=== PATIENT | female | born 1970 | race Caucasian/White ===

== ENCOUNTER 2018-04-17 11:04 | Inpatient (IN) ==
[2018-04-17] MEDS ORDERED: ONDANSETRON 4 MG/2 ML VIAL IV ONE ×3 (11:26→15:51)
[2018-04-17] MEDS ORDERED: 0.9 % SODIUM CHLORIDE 500 ML IV ONE (11:26)
[2018-04-17] MEDS ORDERED: LORazepam 2 MG/ML VIAL IV ONE (11:26)
[2018-04-17] MEDS ORDERED: HYDROmorphone 2 MG/ML VIAL IV ONE ×2 (11:26→14:41)
[2018-04-17 11:53] LABS: Basophils # (Auto) 0.1 K/mcL (0.0-0.3); Basophils % (Auto) 0.9 % (0.0-2.0); Eosinophils # (Auto) 0.2 K/mcL (0.0-0.7); Eosinophils % (Auto) 2.2 % (0.0-7.0); Granulocytes % (Auto) 79.4 % (38.0-78.0); Lymphocytes # (Auto) 1.1 K/mcL (1.5-4.8); Lymphocytes % (Auto) 11.7 % (15.5-49.0); Mean Cell Volume 91.4 fL (80.0-100.0); Mean Corpuscular HGB Conc 33.4 g/dL (31.0-36.0); Mean Corpuscular Hemoglobin 30.6 pg (26.0-34.0); Monocytes # (Auto) 0.5 K/mcL (0.1-0.9); Monocytes % (Auto) 5.8 % (1.0-12.0); Platelet Count 279 K/mcL (140-440); RBC 3.54 M/mcL (4.00-5.20); Red Cell Distribution Width 14.1 % (11.5-14.5)
[2018-04-17 12:23] LABS: Lipase 630 U/L (7-60)
--- NOTE | 2018-04-17 12:26 | Cat Scan Report ---
CLINICAL INFORMATION: Renal failure. Patient is on dialysis. Severe abdominal pain. COMPARISON: Previous CT scan dated 10/13/2015 TECHNIQUE: Axial images were obtained through the abdomen and pelvis. Sagittally and coronally reformatted images. 80 mL contrast material injected intravenously. Oral contrast material was not given FINDINGS: 66 lung bases are negative. No parenchymal infiltrate or mass. No pleural fluid. No pericardial fluid. There is cardiomegaly. There is coronary artery calcification. Negative liver. No focal intrahepatic abnormality. The liver contour is smooth. Gallbladder is present. No calcified gallstones. No dilated bile ducts. Negative spleen. No splenomegaly. Negative pancreas. No pancreatic mass. No peripancreatic abnormality. Negative adrenal glands. Kidneys are atrophic but functioning. There is right hydronephrosis which is new since previous examination. Right ureter is dilated. There is no right ureteral stone. No bladder calculus. Clinical correlation for possible recent passage of a stone is recommended. Left renal collecting system is mildly prominent. No obstructing or nonobstructing calculi. No solid renal mass. There is an exophytic right lower pole cyst which measures 7.5 cm maximally there is a 10 mm right lower pole cyst. No solid renal mass There is a large left para midline abdominal wall hernia. Hernia defect measures approximately 10 cm in mediolateral dimension and 13 cm in craniocaudal dimension. There is small bowel herniated through this defect and into the subcutaneous tissues. No mechanical small bowel obstruction. No fluid. No bowel wall thickening. There is a second 5 cm supraumbilical hernia which measures 4.7 cm. This contains mesenteric fat but no bowel. Colon is negative. There is diverticulosis but no evidence for diverticulitis. No detectable colonic mass. No diverticulitis. No appendicitis. No mechanical small bowel obstruction No retroperitoneal or mesenteric lymphadenopathy. No lumbar compression fracture. Sacrum and pelvis are negative. Uterus is present and anteflexed. There is a probable 2 cm left ovarian cyst. There is atherosclerotic calcification. No abdominal aortic aneurysm. IMPRESSION: 1. Anterior abdominal wall hernias. Large anterior abdominal wall hernia containing small bowel but without mechanical small bowel obstruction 2. Right hydronephrosis and hydroureter. No ureteral stone identified. Clinical correlation for symptoms of possible recent passage recommended 3. Diverticulosis. No evidence for diverticulitis The exam was performed using radiation dose optimization techniques including, but not limited to, automated exposure control, adjustment of the mA and/or kV according to patient size and use of iterative reconstruction technique. Interpreted and Authenticated by: Marc Penny 04/17/18
[2018-04-17 12:28] LABS: ALT/SGPT 12 U/l (0-40); Albumin 4.1 gm/dL (3.2-5.2); Albumin/Globulin Ratio 1.2 (1.0-2.3); Alkaline Phosphatase 79 U/L (39-117); Blood Urea Nitrogen 58 mg/dl (6-20)
--- NOTE | 2018-04-17 12:48 | Emergency Department Note ---
Nausea/Vomiting/Diarrhea HPI - General Chief complaint: Nausea/Vomiting/Diarrhea Stated complaint: nausea/vomiting, diabetic, dialysis Time Seen by Provider: 04/17/18 11:11 Source: patient Mode of arrival: wheelchair Limitations: no limitations - History of Present Illness HPI Narrative: 47-year-old female dialysis patient who could not go to dialysis this morning secondary to nausea vomiting diarrhea. She is having severe belly pain that is where she is ever had. She has a history of previous bezoar that she had to have surgery for and since then has had significant abdominal ventral wall hernia. Denies fever. She is waiting for a kidney transplant. Patient says she does not make much urine at all - Related Data Home Medications Medication Instructions Recorded Confirmed Aspirin [Jesus Alberto Chewable Aspirin] 81 mg PO DAILY 05/10/15 09/01/16 Atorvastatin [Lipitor] 40 mg PO HS 05/10/15 09/01/16 Benazepril [Lotensin] 40 mg PO DAILY 05/10/15 09/01/16 Carvedilol [Coreg] 25 mg PO BID 05/10/15 09/01/16 Torsemide [Demadex] 20 mg PO DAILY 05/10/15 09/01/16 amLODIPine [Norvasc] 10 mg PO DAILY 05/10/15 09/01/16 calcium acetate 667 mg capsule See Label Instructions .ROUTE 07/27/17 .COMPLEX cap cinacalcet 30 mg tablet 30 mg PO QDAY 07/27/17 clopidogrel 75 mg tablet 75 mg PO QDAY 07/27/17 hydralazine 100 mg tablet 100 mg PO TID tab 07/27/17 insulin glargine (U-100) 100 60 unit SUB-Q QDAY ml 07/27/17 unit/mL subcutaneous solution losartan 50 mg tablet 50 mg PO QDAY 07/27/17 omeprazole 20 mg capsule,delayed 20 mg PO QDAY cap 07/27/17 release sertraline 50 mg tablet 50 mg PO QDAY 07/27/17 Previous Rx's Medication Instructions Recorded Ondansetron [Zofran Odt] 4 mg PO Q4-6H PRN #14 tablet 04/25/16 ondansetron 4 mg disintegrating 4 mg PO Q6H PRN #20 tab 11/21/17 tablet sucroferric oxyhydroxide 500 mg 1,000 mg PO TID #180 tab 12/05/17 chewable tablet Allergies Allergy/AdvReac Type Severity Reaction Status Date / Time codeine AdvReac Intermediate Vomiting Verified 04/17/18 11:07 diazepam [From Valium] AdvReac Other Verified 04/17/18 11:07 Review of Systems All systems ED: reviewed and negative except as stated. Past Medical History - Past Medical History Attestation: Yes: The following information was validated with the patient. [facility] Narrative: Medical History (Last Updated 04/17/18 @ 13:09 by Antonio Lam MD) Acute whiplash injury (Acute) Bronchitis (Acute) Hypertensive urgency (Acute) Nausea & vomiting (Acute) Anemia (Acute) Hypomagnesemia (Acute) Leukocytosis (Acute) Hypothyroidism (Chronic) Anemia in chronic kidney disease (CKD) (Acute) Vomiting (Chronic) Chest pain (Acute) Atypical chest pain (Acute) Metabolic acidosis (Chronic) Obesity (Chronic) Secondary hyperparathyroidism of renal origin (Chronic) Proteinuria (Chronic) Vitamin D deficiency (Acute) Retinopathy, diabetic, background (Acute) Rash (Acute) Insomnia (Acute) Hypertension, essential, benign (Acute) Hyperlipidemia (Acute) Edema leg (Acute) 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) Diabetes mellitus type II, uncontrolled (Acute) CHF (congestive heart failure) (Acute) Chest pain (Acute) Past Surgical History Hx of abdominal surgery (Acute) H/O angioplasty (Acute) Family History sister Chronic kidney disease, stage V Acute myocardial infarction Source: old records reviewed Medical history: Reports: coronary artery disease, DM, GERD, hyperlipidemia, hypertension, renal disease, thyroid disease, other Psychiatric history: Reports: depression Surgical history ED: Reports: other (dialysis fistula / catheter and 2 times abdominal surgeries) - Social History smoking status: Former smoker Physical Exam He is curled up in a position secondary to pain moaning. Tearful. Normocephalic atraumatic. Conjunctive are clear sclerae nonicteric. No nasal discharge or congestion. Oropharynx pink and moist. Neck is supple without lymphadenopathy thyromegaly. Heart is regular rate and rhythm no murmur appreciated. Lungs are clear to auscultation bilaterally without wheezes rales rhonchi or respiratory distress. Abdomen is tender especially over her hernia. Some guarding. No pedal edema. +2 radial pulse. Alert oriented After getting Dilaudid and Zofran. Patient was feeling better and sleeping Limitations: no limitations Course Vital Signs Temperature 97.7 F 04/17/18 11:04 Pulse Rate 86 04/17/18 11:04 Respiratory Rate 26 H 04/17/18 11:04 Blood Pressure 200/87 04/17/18 11:04 Pulse Oximetry (%) 100 04/17/18 11:04 Temperature 97.7 F 04/17/18 11:04 Pulse Rate 39 L 04/17/18 14:46 Respiratory Rate 15 04/17/18 11:51 Blood Pressure 200/98 04/17/18 14:46 Pulse Oximetry (%) 85 L 04/17/18 14:46 Nausea/Vomiting/Diarrhea - Lab Data Lab results reviewed: Yes I reviewed the patient's lab results. Result diagrams: 04/17/18 11:16 04/17/18 11:16 Lab Results 04/17/18 04/17/18 04/17/18 Range/Units 11:16 11:16 11:42 WBC 9.3 (4.5-11.0) K/mcL RBC 3.54 L (4.00-5.20) M/mcL Hgb 10.8 L (12.0-15.0) g/dL Hct 32.4 L (36.0-48.0) % MCV 91.4 (80.0-100.0) fL MCH 30.6 (26.0-34.0) pg MCHC 33.4 (31.0-36.0) g/dL RDW 14.1 (11.5-14.5) % Plt Count 279 (140-440) K/mcL MPV 8.6 (7.4-10.4) fL Gran % 79.4 H (38.0-78.0) % Lymph % (Auto) 11.7 L (15.5-49.0) % Gray % (Auto) 5.8 (1.0-12.0) % Eos % (Auto) 2.2 (0.0-7.0) % Baso % (Auto) 0.9 (0.0-2.0) % Gran # 7.3 (1.8-8.0) K/mcL Lymph # (Auto) 1.1 L (1.5-4.8) K/mcL Gray # (Auto) 0.5 (0.1-0.9) K/mcL Eos # (Auto) 0.2 (0.0-0.7) K/mcL Baso # (Auto) 0.1 (0.0-0.3) K/mcL Sodium 138 (133-145) mmol/L Potassium 4.8 (3.3-5.1) mmol/L Chloride 96 (96-108) mmol/L Carbon Dioxide 24 (22-30) mmol/L Anion Gap 18.0 H (8-16) BUN 58 H (6-20) mg/dl Creatinine 7.1 H* (0.6-1.1) mg/dl GFR Calculation 6 Glucose 194 H (70-105) mg/dL Calcium 9.7 (8.6-10.4) mg/dl Total Bilirubin 0.4 (0.0-1.0) mg/dL AST 16 (0-37) U/l ALT 12 (0-40) U/l Alkaline Phosphatase 79 (39-117) U/L Total Protein 7.5 (5.9-8.4) gm/dL Albumin 4.1 (3.2-5.2) gm/dL Globulin 3.4 (2.2-3.7) gm/dL Albumin/Globulin Ratio 1.2 (1.0-2.3) Triglycerides (<150) mg/dl Cholesterol (<200) mg/dl LDL Cholesterol, Calc (SEE CHART) mg/dl Non-HDL Cholesterol (LDL TARGET+30) HDL Cholesterol (>40) mg/dl Lipase 630 H (7-60) U/L 04/17/18 Range/Units 11:42 WBC (4.5-11.0) K/mcL RBC (4.00-5.20) M/mcL Hgb (12.0-15.0) g/dL Hct (36.0-48.0) % MCV (80.0-100.0) fL MCH (26.0-34.0) pg MCHC (31.0-36.0) g/dL RDW (11.5-14.5) % Plt Count (140-440) K/mcL MPV (7.4-10.4) fL Gran % (38.0-78.0) % Lymph % (Auto) (15.5-49.0) % Gray % (Auto) (1.0-12.0) % Eos % (Auto) (0.0-7.0) % Baso % (Auto) (0.0-2.0) % Gran # (1.8-8.0) K/mcL Lymph # (Auto) (1.5-4.8) K/mcL Gray # (Auto) (0.1-0.9) K/mcL Eos # (Auto) (0.0-0.7) K/mcL Baso # (Auto) (0.0-0.3) K/mcL Sodium (133-145) mmol/L Potassium (3.3-5.1) mmol/L Chloride (96-108) mmol/L Carbon Dioxide (22-30) mmol/L Anion Gap (8-16) BUN (6-20) mg/dl Creatinine (0.6-1.1) mg/dl GFR Calculation Glucose (70-105) mg/dL Calcium (8.6-10.4) mg/dl Total Bilirubin (0.0-1.0) mg/dL AST (0-37) U/l ALT (0-40) U/l Alkaline Phosphatase (39-117) U/L Total Protein (5.9-8.4) gm/dL Albumin (3.2-5.2) gm/dL Globulin (2.2-3.7) gm/dL Albumin/Globulin Ratio (1.0-2.3) Triglycerides 159 H (<150) mg/dl Cholesterol 199 (<200) mg/dl LDL Cholesterol, Calc 121 H (SEE CHART) mg/dl Non-HDL Cholesterol 152 H (LDL TARGET+30) HDL Cholesterol 47 (>40) mg/dl Lipase (7-60) U/L - Radiology Data Radiology results reviewed: Yes I reviewed the patient's radiology results. CT scan of the abdomen and pelvis with contrast was done which shows stable ventral hernia without evidence of obstruction. Possible right-sided kidney stone passage with mild hydronephrosis and dilatation of the ureter. However no current kidney stone seen. Ultrasound gallbladder is ordered secondary to the possibility of gallstone pancreatitis. Ultrasound is negative Disposition Pt seen by CASUALTY CLAIMS SUPERVISOR/PA only: No Clinical Impression: Dialysis patient Abdominal pain Qualifiers: Abdominal location: generalized Qualified Code(s): R10.84 - Generalized abdominal pain Pancreatitis Qualifiers: Chronicity: acute Pancreatitis type: unspecified pancreatitis type Acute pancreatitis complication: no infection or necrosis Qualified Code(s): K85.90 - Acute pancreatitis without necrosis or infection, unspecified Summary: After laboratory and CT scan I discussed case with Dr. Lam, interlocking and signal mechanic on- call for Dr. De Guzman, he recommended she get her dialysis today and if necessary inpatient dialysis versus outpatient. He reviewed CT scan and laboratory and suspects acute pancreatitis I did briefly discussed the case with Dr. Chen, hospitalist, who recommended gallbladder ultrasound to further sort out what is going on. Ultrasound was negative. Dr. Chen then accepted the patient for further evaluation and care. She will need to get dialysis today She received 500 mL of fluid to rehydrate after vomiting. She continued to require pain medicine and antiemetic Disposition: Xfer As Inpt ([facility]) Condition: Fair Referrals: Padmini Naik ARNP [Primary Care Provider] - Dee De Guzman MD [Physician] -
[2018-04-17 13:22] LABS: HDL Cholesterol 47 mg/dl (>40); LDL Cholesterol,Calculated 121 mg/dl (SEE CHART)
--- NOTE | 2018-04-17 14:16 | Ultrasound Report ---
CLINICAL INFORMATION: Abdominal pain. Symptoms suggesting pancreatitis TECHNIQUE: Grayscale and color flow Doppler spectral imaging COMPARISON: CT scan dated 04/17/2018 FINDINGS: Negative gallbladder. No cholelithiasis. No gallbladder wall thickening. No pericholecystic fluid. No dilated bile ducts. Common bile duct measures 5 mm maximally. No intrahepatic bile duct dilatation. Liver measures 14 cm. No focal intrahepatic abnormality. Liver contour is smooth. No evidence for cirrhosis. No ascites. Normal hepatopedal portal venous flow. Visualized portions of the pancreas are negative. No pseudocyst. No peripancreatic fluid. IMPRESSION: Negative limited abdominal ultrasound. Interpreted and Authenticated by: Marc Penny 04/17/18
--- NOTE | 2018-04-17 14:33 | Nephrology Consult Note ---
History of Present Illness - Reason for Consult Patient information: Note initiated : 04/17/18 at 2:31 pm Carlene Maddox is a 47-year-old female with end-stage renal disease on chronic hemodialysis (through right arm AV fistula, at [facility], on [facility], followed by Dr. De Guzman), secondary hyperparathyroidism of renal origin, chronic anemia due to kidney disease, coronary artery disease, diabetes mellitus type 2, hypertension , admitted on 04/17/18 for acute pancreatitis. Consult date: 04/17/18 end stage renal disease Requesting physician: Sameer Naik - Chief Complaint Nausea, vomiting, abdominal pain and diarrhea - History of Present Illness Carlene Maddox is a 47-year-old female with end-stage renal disease on chronic hemodialysis (through right arm AV fistula, at [facility], on [facility], followed by Dr. De Guzman), secondary hyperparathyroidism of renal origin, chronic anemia due to kidney disease, coronary artery disease, diabetes mellitus type 2, hypertension , admitted on 04/17/18 for acute pancreatitis. Review of Systems Constitutional: anorexia, weakness Nose, mouth and throat: no nasal congestion, no sore throat Cardiovascular: no chest pain, no palpatations Respiratory: no cough, no dyspnea Gastrointestinal: abdominal pain, diarrhea, nausea, vomiting Genitourinary: no dysuria, no hematuria Musculoskeletal: no back pain, no neck pain Integumentary: no rash, no wounds Neurological: no confusion, no focal weakness Psychiatric: no anxiety, no panic attacks Endocrine: no cold intolerance, no heat intolerance Hematologic/Lymphatic: no easy bleeding, no easy bruising Allergic/Immunologic: no tongue swelling, no uticaria Past History Past medical history: Medical History (Last Updated 04/17/18 @ 13:09 by Antonio Lam MD) Acute whiplash injury (Acute) Bronchitis (Acute) Hypertensive urgency (Acute) Nausea & vomiting (Acute) Anemia (Acute) Hypomagnesemia (Acute) Leukocytosis (Acute) Hypothyroidism (Chronic) Anemia in chronic kidney disease (CKD) (Acute) Vomiting (Chronic) Chest pain (Acute) Atypical chest pain (Acute) Metabolic acidosis (Chronic) Obesity (Chronic) Secondary hyperparathyroidism of renal origin (Chronic) Proteinuria (Chronic) Vitamin D deficiency (Acute) Retinopathy, diabetic, background (Acute) Rash (Acute) Insomnia (Acute) Hypertension, essential, benign (Acute) Hyperlipidemia (Acute) Edema leg (Acute) 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) Diabetes mellitus type II, uncontrolled (Acute) CHF (congestive heart failure) (Acute) Chest pain (Acute) Past surgical history: Past Surgical History Hx of abdominal surgery (Acute) H/O angioplasty (Acute) Past family history: Family History sister Chronic kidney disease, stage V Acute myocardial infarction Past social history: Social History No Social History Section defined Medications and Allergies Home Medications Medication Instructions Recorded Confirmed Type Aspirin [Jesus Alberto Chewable Aspirin] 81 mg PO DAILY 05/10/15 09/01/16 History Atorvastatin [Lipitor] 40 mg PO HS 05/10/15 09/01/16 History Benazepril [Lotensin] 40 mg PO DAILY 05/10/15 09/01/16 History Carvedilol [Coreg] 25 mg PO BID 05/10/15 09/01/16 History Torsemide [Demadex] 20 mg PO DAILY 05/10/15 09/01/16 History amLODIPine [Norvasc] 10 mg PO DAILY 05/10/15 09/01/16 History Ondansetron [Zofran Odt] 4 mg PO Q4-6H PRN #14 tablet 04/25/16 09/01/16 Rx calcium acetate 667 mg capsule See Label Instructions .ROUTE 07/27/17 History .COMPLEX cap cinacalcet 30 mg tablet 30 mg PO QDAY 07/27/17 History clopidogrel 75 mg tablet 75 mg PO QDAY 07/27/17 History hydralazine 100 mg tablet 100 mg PO TID tab 07/27/17 History insulin glargine (U-100) 100 60 unit SUB-Q QDAY ml 07/27/17 History unit/mL subcutaneous solution losartan 50 mg tablet 50 mg PO QDAY 07/27/17 History omeprazole 20 mg capsule,delayed 20 mg PO QDAY cap 07/27/17 History release sertraline 50 mg tablet 50 mg PO QDAY 07/27/17 History ondansetron 4 mg disintegrating 4 mg PO Q6H PRN #20 tab 11/21/17 Rx tablet sucroferric oxyhydroxide 500 mg 1,000 mg PO TID #180 tab 12/05/17 Rx chewable tablet Allergies Allergy/AdvReac Type Severity Reaction Status Date / Time codeine AdvReac Intermediate Vomiting Verified 04/17/18 11:07 diazepam [From Valium] AdvReac Other Verified 04/17/18 11:07 Exam - Vital Signs Vital signs: Temp Pulse Resp BP Pulse Ox 97.7 F 80 15 193/82 99 04/17/18 11:04 04/17/18 14:17 04/17/18 11:51 04/17/18 14:16 04/17/18 14:17 - General Appearance General appearance: chronically ill, frail EENT: mucous membranes dry Neck: supple Respiratory: clear Cardiology: edema Gastrointestinal: tenderness Integumentary: no rash, warm and dry Neurologic: no focal deficit, alert and oriented x3 Musculoskeletal: no deformities Psychiatric: mood/affect appropriate, cooperative Results - Lab Results 04/17/18 11:16 04/17/18 11:16 Most recent lab results Calcium 9.7 mg/dl (8.6-10.4) 04/17/18 11:16 Assessment and Plan (1) ESRD (end stage renal disease) on dialysis Carlene Maddox is a 47-year-old female with end-stage renal disease on chronic hemodialysis (through right arm AV fistula, at [facility], on [facility], followed by Dr. De Guzman), secondary hyperparathyroidism of renal origin, chronic anemia due to kidney disease, coronary artery disease, diabetes mellitus type 2, hypertension , admitted on 04/17/18 for acute pancreatitis. Plan: Hemodialysis tomorrow with Revaclear 400 dialyzer for 4 hours, QB/QD 400 /800, dialysate (Potassium 3, Bicarbonate 35, Calcium 2.5, Sodium 140), UF target 2000 ml, Heparin 2000 unit bolus, 1000 unit per hour. Status: Chronic Priority: Medium
--- NOTE | 2018-04-17 16:25 | Internal Med History&Physical ---
Medical - H&P: [facility] Patient information: Note initiated : 04/17/18 at 4:20 pm Service Date, if different from initiated Date: [] Patient: Carlene Maddox a 47 y/o F admitted on for N/V, Diabetic, Dialysis. Chief Complaint: [] History of present illness: Ms. Maddox is a 47 year old F who presents to the ER with severe abdominal pain. She states she went to bed feeling fine and she woke up at 730 with severe squeezing type abdominal pain mid up abdomen shooting straight through to the back. She came to ER set of dialysis because of the pain. In the ER she was evaluated including CT abdomen pelvis no acute pathology presentation labs clinically evident for pancreatitis. Patient denies any trauma no new medications denies alcohol use. Patient states the pain came on acutely. Last time she had any pain similar to this is when she had perforation of abdominal viscus perforation. She did have a gallbladder ultrasound in ER which showed no stones as well. And [employer] outpatient ER and was recommended to get her dialysis today. Patient has had diarrhea as well however this common for her she has had over the past week. She did develop some nausea vomiting with the abdominal pain. Vomitus was described as yellow and ascitic. She vomited 4 times. No fever chills headaches no chest pain coughing or shortness of breath. Also found to be hypertensive in the ER. Try to clarify her medications she could not give me much information. I see if 5 different blood pressure medications I cannot imagine she is on all of them will to clarify the medication list. Review of Systems: Positive for nausea vomiting severe abdominal pain, diarrhea chronic. Denies headache/fever/chills/chest pain/cough/dyspnea. Remaining 10 point review of systems reviewed negative. Medical - H&P: [facility] Medical history: Medical History (Last Updated 04/17/18 @ 13:09 by Antonio Lam MD) Obesity (Chronic) Secondary hyperparathyroidism of renal origin (Chronic) Diabetes with retinopathy, diabetic, background (Acute) Hypertension, essential, benign (Acute) Hyperlipidemia (Acute) chronic anemia Depression GERD Patient denied any history of heart failure or CAD past Surgical History Hx of abdominal surgery (Acute) Family History sister Chronic kidney disease, stage V Acute myocardial infarction Patient is adopted and unknown history of mother and father Social History Former smoker quit 20 years ago Denies alcohol use Ambulates with cane Lives at home with family Medical - H&P: Meds Home Medications Medication Instructions Recorded Confirmed Type Aspirin [Jesus Alberto Chewable Aspirin] 81 mg PO DAILY 05/10/15 09/01/16 History Atorvastatin [Lipitor] 40 mg PO HS 05/10/15 09/01/16 History Benazepril [Lotensin] 40 mg PO DAILY 05/10/15 09/01/16 History Carvedilol [Coreg] 25 mg PO BID 05/10/15 09/01/16 History Torsemide [Demadex] 20 mg PO DAILY 05/10/15 09/01/16 History amLODIPine [Norvasc] 10 mg PO DAILY 05/10/15 09/01/16 History Ondansetron [Zofran Odt] 4 mg PO Q4-6H PRN #14 tablet 04/25/16 09/01/16 Rx calcium acetate 667 mg capsule See Label Instructions .ROUTE 07/27/17 History .COMPLEX cap cinacalcet 30 mg tablet 30 mg PO QDAY 07/27/17 History clopidogrel 75 mg tablet 75 mg PO QDAY 07/27/17 History hydralazine 100 mg tablet 100 mg PO TID tab 07/27/17 History insulin glargine (U-100) 100 60 unit SUB-Q QDAY ml 07/27/17 History unit/mL subcutaneous solution losartan 50 mg tablet 50 mg PO QDAY 07/27/17 History omeprazole 20 mg capsule,delayed 20 mg PO QDAY cap 07/27/17 History release sertraline 50 mg tablet 50 mg PO QDAY 07/27/17 History ondansetron 4 mg disintegrating 4 mg PO Q6H PRN #20 tab 11/21/17 Rx tablet sucroferric oxyhydroxide 500 mg 1,000 mg PO TID #180 tab 12/05/17 Rx chewable tablet Allergies Allergy/AdvReac Type Severity Reaction Status Date / Time codeine AdvReac Intermediate Vomiting Verified 04/17/18 11:07 diazepam [From Valium] AdvReac Other Verified 04/17/18 11:07 Medical - H&P: Exam - Constitutional Vitals: Temp Pulse Resp BP Pulse Ox 97.7 F 87 15 212/91 100 04/17/18 11:04 04/17/18 16:01 04/17/18 11:51 04/17/18 16:01 04/17/18 16:01 Exam: General: Alert, Awake, mild acute Distress from pain and nausea HEENT: EOMI, normocephalic atraumatic, pupils equal round react light, dry mucous membranes CV: RRR, No murmurs, Pulm: Clear b/l, no wheezing/rhonchi/rales Abd: soft, tender to palpation epigastrium, decreased bowel sounds x4 x4 Ext: no clubbing/cyanosis/edema Neuro: Alert, no focal deficits, moves all extremities Skin: warm/dry Medical - H&P: Reslt - Labs CBC & Chem 7: 04/17/18 11:16 04/17/18 11:16 Labs: Short CBC 04/17/18 Range/Units 11:16 WBC 9.3 (4.5-11.0) K/mcL Hgb 10.8 L (12.0-15.0) g/dL Hct 32.4 L (36.0-48.0) % Plt Count 279 (140-440) K/mcL BMP 04/17/18 11:16 Sodium 138 Potassium 4.8 Chloride 96 Carbon Dioxide 24 BUN 58 H Creatinine 7.1 H* Glucose 194 H Calcium 9.7 Liver Function 04/17/18 Range/Units 11:16 Total Bilirubin 0.4 (0.0-1.0) mg/dL AST 16 (0-37) U/l ALT 12 (0-40) U/l Alkaline Phosphatase 79 (39-117) U/L Albumin 4.1 (3.2-5.2) gm/dL Medical - H&P: A/P - Narrative A/P Narrative: A: *Acute pancreatitis: Unknown etiology >no alcohol use, no cholelithiasis gallbladder unremarkable, No trauma, Ca/Trigs ok, she is on several medications that are class Ib causes which include omeprazole and possibly losartan if she is actually taking at however it sounds like she has been on these for a long time -GB u/s unremarkable *Hypertensive urgency: *Diabetes with retinopathy (legally blind): *End-stage renal disease(mwf): Follows with Dr. eD Guzman *Anemia, chronic: *Hypertension: Follows with [facility] cardiology for hypertension denies any CHF or CAD *Depression *GERD *Obesity P: -IV fluid hydration will be cautious given ESRD -N.p.o. -Nephrology for hemodialysis -DC Prilosec and losartan for now -Clarify home medications, especially blood pressure medications -Monitor blood pressure closely with as needed as needed to obtain better control -Continue other home medications -SSI -ppx: Heparin
[2018-04-17] MEDS ORDERED: BISACODYL 10 MG SUPP.RECT PR PRN ×2 (16:36→18:30)
[2018-04-17] MEDS ORDERED: PROMETHAZINE 25 MG TABLET PO PRN (16:36)
[2018-04-17] MEDS ORDERED: ACETAMINOPHEN 325 MG TABLET PO PRN ×2 (16:36→18:30)
[2018-04-17] MEDS ORDERED: HYDROmorphone 2 MG/ML VIAL IV PRN (16:36)
[2018-04-17] MEDS ORDERED: ONDANSETRON 4 MG/2 ML VIAL IV PRN (16:36)
[2018-04-17] MEDS ORDERED: PROCHLORPERAZINE 25 MG SUPP.RECT PR PRN ×2 (16:36→18:30)
[2018-04-17] MEDS ORDERED: LABETALOL HCL 20 MG/4 ML SYRINGE IV PRN ×2 (16:41→18:30)
[2018-04-17] MEDS ORDERED: 0.9 % SODIUM CHLORIDE 500 ML IV SCH (16:45)
[2018-04-17] MEDS ORDERED: INSULIN LISPRO 1 UNIT/0.01 ML UNIT SQ SCH (18:00)
[2018-04-17] MEDS: 0.9 % SODIUM CHLORIDE 500 ML IV SCH ×2 (18:55→22:07)
[2018-04-17] MEDS: HYDROmorphone 2 MG/ML VIAL IV PRN (18:56)
[2018-04-17 19:26] LABS: Appearance,Urine CLEAR; Bacteria,Urine FEW /hpf (0); Bilirubin,Urine NEG (NEG); Color,Urine YELLOW; Glucose,Urine (UA) 150 mg/dL (NEG); Leukocyte Esterase,Urine NEG /uL (NEG); Mucus,Urine FEW /hpf (0); Protein,Urine 100 mg/dL (NEG); Specific Gravity,Urine 1.015 (1.000-1.035); Urine Blood NEG mg/dL (<0.03); Urine RBC 1 /hpf (0-1); Urine Squamous Epithelial Cell 7 /hpf (0-4); Urine WBC 1 /hpf (0-4); Urobilinogen,Urine NEG (NEG)
[2018-04-17] MEDS ORDERED: DOCUSATE SODIUM 100 MG CAPSULE PO SCH (21:00)
[2018-04-17] MEDS ORDERED: HEPARIN 5,000 UNIT/ML VIAL SQ SCH (21:00)
[2018-04-17] MEDS: DOCUSATE SODIUM 100 MG CAPSULE PO SCH (21:35)
[2018-04-17] MEDS ORDERED: 0.9 % SODIUM CHLORIDE 10 ML SYRINGE IV SCH (22:00)
[2018-04-17] MEDS: HEPARIN 5,000 UNIT/ML VIAL SQ SCH (22:06)
[2018-04-17] MEDS: 0.9 % SODIUM CHLORIDE 10 ML SYRINGE IV SCH (22:07)
[2018-04-17] MEDS: ONDANSETRON 4 MG/2 ML VIAL IV PRN (23:27)
[2018-04-18] MEDS: INSULIN LISPRO 1 UNIT/0.01 ML UNIT SQ SCH ×4 (00:10→17:23)
[2018-04-18] MEDS: 0.9 % SODIUM CHLORIDE 500 ML IV SCH ×3 (01:18→12:45)
[2018-04-18] MEDS: ONDANSETRON 4 MG/2 ML VIAL IV PRN ×3 (04:22→23:13)
[2018-04-18] MEDS: 0.9 % SODIUM CHLORIDE 10 ML SYRINGE IV SCH ×3 (05:23→20:01)
[2018-04-18 05:48] LABS: Basophils # (Auto) 0 K/mcL (0.0-0.3); Basophils % (Auto) 0.2 % (0.0-2.0); Eosinophils # (Auto) 0.2 K/mcL (0.0-0.7); Eosinophils % (Auto) 2.8 % (0.0-7.0); Granulocytes % (Auto) 72.3 % (38.0-78.0); Lymphocytes # (Auto) 1.4 K/mcL (1.5-4.8); Lymphocytes % (Auto) 19.5 % (15.5-49.0); Mean Cell Volume 92.9 fL (80.0-100.0); Mean Corpuscular HGB Conc 33.2 g/dL (31.0-36.0); Mean Corpuscular Hemoglobin 30.8 pg (26.0-34.0); Monocytes # (Auto) 0.4 K/mcL (0.1-0.9); Monocytes % (Auto) 5.2 % (1.0-12.0); Platelet Count 226 K/mcL (140-440); RBC 3.14 M/mcL (4.00-5.20); Red Cell Distribution Width 14.3 % (11.5-14.5)
--- NOTE | 2018-04-18 05:50 | Nephrology Progress Note ---
Subjective Patient information: Note initiated : 04/18/18 at 5:47 am Carlene Maddox is a 47-year-old female admitted on 04/17/18 for acute pancreatitis. Chief Complaint: Nausea, vomiting, abdominal pain Principal diagnosis: Acute pancreatitis; ESRD on HD Interval history: Missed dialysis on 04/17/18 Pertinent ROS: Nausea Abdominal pain Weakness No shortness of breath Objective - Vital Signs Vital signs: Vital Signs Temp Pulse Pulse Resp BP BP Pulse Ox 04/18/18 04:10 97.9 F 77 16 99/49 100 04/17/18 23:32 97.7 F 76 20 118/44 94 04/17/18 20:00 97.9 F 20 169/89 100 04/17/18 19:08 73 15 194/78 100 04/17/18 18:12 97.7 F 26 H 127/60 100 04/17/18 18:01 73 194/78 100 04/17/18 17:46 75 195/89 100 04/17/18 17:31 75 189/77 100 04/17/18 17:16 74 187/76 100 04/17/18 17:01 73 188/74 100 04/17/18 16:46 79 185/80 100 04/17/18 16:31 79 195/84 100 04/17/18 16:17 99 H 226/102 87 L 04/17/18 16:01 87 212/91 100 04/17/18 15:46 88 216/90 100 04/17/18 15:31 101 H 210/101 100 04/17/18 15:16 79 212/80 100 04/17/18 15:01 76 195/84 100 04/17/18 14:46 39 L 200/98 85 L 04/17/18 14:31 87 193/90 99 04/17/18 14:17 80 99 04/17/18 14:16 91 H 193/82 100 04/17/18 14:03 90 100 04/17/18 14:01 82 194/90 100 04/17/18 13:46 84 190/88 100 04/17/18 13:31 69 163/76 99 04/17/18 13:16 66 161/82 100 04/17/18 12:31 74 150/72 99 04/17/18 12:16 71 149/72 95 04/17/18 12:15 75 92 04/17/18 12:13 83 148/71 74 L 04/17/18 11:51 72 15 79 L 04/17/18 11:50 63 17 184/71 81 L 04/17/18 11:49 68 15 100 04/17/18 11:46 65 17 212/88 100 04/17/18 11:35 67 18 200/79 100 04/17/18 11:15 78 30 H 200/79 100 04/17/18 11:04 97.7 F 86 26 H 200/87 100 Intake and Output 04/17/18 04/17/18 04/18/18 13:59 21:59 05:59 Intake Total 1000 / 1000 740 / 740 Output Total 125 / 125 Balance 875 / 875 740 / 740 Intake: IV 1000 / 1000 500 / 500 Sodium Chloride 0.9% 500 ml @ 500 / 500 150 mls/hr IV .Q3H20M [facility] Rx#: [id number] Sodium Chloride 0.9% 500 ml @ 1000 / 1000 Wide Open IV .Q0M ONE Rx#: [id number] Oral 240 / 240 Output: Void Amount 125 / 125 Other: Urine Appearance Clear Sediment Urine Color Pale Urine Odor Strong # Voids 1 1 Weight 180 lb 12.465 oz 189 lb 8 oz Patient Weight 04/18/18 05:59 Weight 189 lb 8 oz Intake & Output: Intake & Output 04/17/18 04/17/18 04/18/18 13:59 21:59 05:59 Intake Total 1000 / 1000 740 / 740 Output Total 125 / 125 Balance 875 / 875 740 / 740 Weight 180 lb 12.465 oz 189 lb 8 oz Intake: IV 1000 / 1000 500 / 500 Sodium Chloride 0.9% 500 ml @ 500 / 500 150 mls/hr IV .Q3H20M [facility] Rx#: [id number] Sodium Chloride 0.9% 500 ml @ 1000 / 1000 Wide Open IV .Q0M [facility] Rx#: [id number] Oral 240 / 240 Output: Void Amount 125 / 125 Other: Urine Appearance Clear Sediment Urine Color Pale Urine Odor Strong # Voids 1 1 - General Appearance General appearance: chronically ill, frail EENT: mucous membranes moist Respiratory: clear Cardiology: edema Gastrointestinal: tenderness Integumentary: warm and dry Neurologic: no focal deficit, alert and oriented x3 Musculoskeletal: no deformities Psychiatric: mood/affect appropriate, cooperative - Lab 04/18/18 04:00 04/18/18 04:00 Most recent lab results Calcium 9.7 mg/dl (8.6-10.4) 04/17/18 11:16 Assessment and Plan (1) ESRD (end stage renal disease) on dialysis Carlene Maddox is a 47-year-old female with end-stage renal disease on chronic hemodialysis (through right arm AV fistula, at [facility], on MWF, followed by Dr. De Guzman), secondary hyperparathyroidism of renal origin, chronic anemia due to kidney disease, coronary artery disease, diabetes mellitus type 2, hypertension , admitted on 04/17/18 for acute pancreatitis. Plan: Hemodialysis today with Revaclear 400 dialyzer for 4 hours, QB/QD 400/ 800, dialysate (Potassium 3, Bicarbonate 35, Calcium 2.5, Sodium 140), UF target 2000 ml, Heparin 2000 unit bolus, 1000 unit per hour. The patient seen and evaluated during hemodialysis at 10:45. Status: Chronic Priority: Medium
[2018-04-18] MEDS: PROMETHAZINE 25 MG TABLET PO PRN ×2 (06:41→20:00)
[2018-04-18] MEDS: PANTOPRAZOLE 40 MG VIAL IV SCH (06:43)
--- NOTE | 2018-04-18 06:56 | Internal Med Progress Note ---
Medical - PN: Subj Patient information: Note initiated : 04/18/18 at 6:50 am Service Date, if different from initiated Date: [] Patient: Carlene Maddox a 47 y/o F admitted on 04/17/18 for N/V, Diabetic, Dialysis. Chief Complaint: [] Interval history: Ms. Maddox is a 47 year old F who presents to the ER with severe abdominal pain. She states she went to bed feeling fine and she woke up at 730 with severe squeezing type abdominal pain mid up abdomen shooting straight through to the back. She came to ER set of dialysis because of the pain. In the ER she was evaluated including CT abdomen pelvis no acute pathology presentation labs clinically evident for pancreatitis. Patient denies any trauma no new medications denies alcohol use. Patient states the pain came on acutely. Last time she had any pain similar to this is when she had perforation of abdominal viscus perforation. She did have a gallbladder ultrasound in ER which showed no stones as well. And [employer] outpatient ER and was recommended to get her dialysis today. Patient has had diarrhea as well however this common for her she has had over the past week. She did develop some nausea vomiting with the abdominal pain. Vomitus was described as yellow and ascitic. She vomited 4 times. No fever chills headaches no chest pain coughing or shortness of breath. Also found to be hypertensive in the ER. Try to clarify her medications she could not give me much information. I see if 5 different blood pressure medications I cannot imagine she is on all of them will to clarify the medication list. 04/18 States difficulty in sleeping because of noise interruptions and nausea. However, her abdominal pain although still present is improved, and her nausea vomiting is not as severe. She did urinate a little bit over night. Feels more comfortable. Review of Systems: denies headache/fever/chills/chest pain/cough/dyspnea/diarrhea. Otherwise see above. - Constitutional Vitals: Vital Signs Temp Pulse Resp BP Pulse Ox 97.9 F 77 16 99/49 100 04/18/18 04:10 04/18/18 04:10 04/18/18 04:10 04/18/18 04:10 04/18/18 04:10 Period Temp Pulse Resp BP Sys/Shin Pulse Ox Last 24 Hr 97.7 F-97.9 F 39-101 15-30 99-226/44-102 74-100 Intake and Output 04/17/18 04/18/18 04/18/18 21:59 05:59 13:59 Intake Total 1000 / 1000 740 / 740 Output Total 125 / 125 Balance 875 / 875 740 / 740 Weight 85.956 kg Intake & Output: Intake & Output 04/17/18 04/18/18 04/18/18 21:59 05:59 13:59 Intake Total 1000 / 1000 740 / 740 Output Total 125 / 125 Balance 875 / 875 740 / 740 Weight 85.956 kg Intake: IV 1000 / 1000 500 / 500 Sodium Chloride 0.9% 500 ml @ 500 / 500 150 mls/hr IV .Q3H20M [facility] Rx#: [id number] Sodium Chloride 0.9% 500 ml @ 1000 / 1000 Wide Open IV .Q0M ONE Rx#: [id number] Oral 240 / 240 Output: Void Amount 125 / 125 Other: Urine Appearance Clear Sediment Urine Color Pale Urine Odor Strong # Voids 1 1 Exam: General: Alert, Awake, no acute distress HEENT: EOMI, neck supple CV: RRR, 1/6 SM, Pulm: Clear b/l, no wheezing/rhonchi/rales Abd: soft, tender to palpation epigastrium, bowel sounds present x4 Ext: no clubbing/cyanosis, trace b/l LE edema Neuro: Alert, no focal deficits, moves all extremities Skin: warm/dry Medical - PN: Obj Da - Labs CBC & Chem 7: 04/18/18 04:00 04/18/18 04:00 Labs: Abnormal Lab Results 04/18/18 04/17/18 04/17/18 04:00 18:45 11:42 RBC 3.14 L Hgb 9.7 L Hct 29.2 L Gran % Lymph % (Auto) Lymph # (Auto) 1.4 L Anion Gap BUN Creatinine Glucose Triglycerides 159 H LDL Cholesterol, Calc 121 H Non-HDL Cholesterol 152 H Lipase Urine Protein 100 A Urine Glucose (UA) 150 A Ur Squamous Epith Cells 7 H Urine Bacteria Few A 04/17/18 04/17/18 04/17/18 11:42 11:16 11:16 RBC 3.54 L Hgb 10.8 L Hct 32.4 L Gran % 79.4 H Lymph % (Auto) 11.7 L Lymph # (Auto) 1.1 L Anion Gap 18.0 H BUN 58 H Creatinine 7.1 H* Glucose 194 H Triglycerides LDL Cholesterol, Calc Non-HDL Cholesterol Lipase 630 H Urine Protein Urine Glucose (UA) Ur Squamous Epith Cells Urine Bacteria Meds: Medications Acetaminophen (Tylenol) 650 mg PO Q6HP PRN PRN Reason: PAIN/FEVER > 101 Last Admin: 04/17/18 23:48 Dose: 650 mg Amlodipine Besylate (Norvasc) 10 mg PO DAILY [facility] Aspirin (Aspirin) 81 mg PO DAILY [facility] Bisacodyl (Dulcolax) 10 mg WA Q3DP PRN PRN Reason: Constipation Carvedilol (Coreg) 25 mg PO BIDCC [facility] Cinacalcet (Sensipar) 30 mg PO QDAY [facility] Docusate Sodium (Colace) 100 mg PO BID [facility] Last Admin: 04/17/18 21:35 Dose: Not Given Heparin Sodium (Porcine) (Heparin) 5,000 unit SQ Q12 [facility] Last Admin: 04/17/18 22:06 Dose: 5,000 unit Hydralazine HCl (Apresoline) 100 mg PO TID [facility] Hydromorphone HCl (Dilaudid) 1 mg IV Q2HP PRN PRN Reason: PAIN LEVEL > 6 Last Admin: 04/17/18 18:56 Dose: 0.5 mg Sodium Chloride (Sodium Chloride 0.9%) 500 mls @ 150 mls/hr IV .Q3H20M [facility] Last Admin: 04/18/18 04:22 Dose: Not Given Insulin Glargine (Lantus) 20 unit SQ DAILY [facility] Insulin Human Lispro (Humalog) 0 unit SQ Q6 [facility]; Protocol Last Admin: 04/18/18 05:23 Dose: Not Given Labetalol HCl (Labetalol Hcl) 0 mg IV Q2HP PRN PRN Reason: Hypertension Ondansetron HCl (Zofran) 4 mg IV Q4HP PRN PRN Reason: Nausea And Vomiting Last Admin: 04/18/18 04:22 Dose: 4 mg Pantoprazole Sodium (Protonix) 40 mg IV QAMAC [facility] Last Admin: 04/18/18 06:43 Dose: 40 mg Prochlorperazine Maleate (Compazine) 12.5 mg WA Q12HP PRN PRN Reason: Nausea And Vomiting Promethazine HCl (Phenergan) 12.5 mg PO Q6HP PRN PRN Reason: Nausea And Vomiting Last Admin: 04/18/18 06:41 Dose: 12.5 mg Sertraline HCl (Zoloft) 50 mg PO QDAY [facility] Sodium Chloride (Saline Flush) 10 ml IV Q8 [facility] Last Admin: 04/18/18 05:23 Dose: Not Given Torsemide (Demadex) 20 mg PO DAILY [facility] Medical - PN: A/P - Time Spent With Patient Total time spent is greater than 50% in coordination of care (as documented) at patient's floor/unit and/or counseling patient: - Narrative A/P Narrative: A: *Acute pancreatitis: Unknown etiology >no alcohol use, no cholelithiasis gallbladder unremarkable, No trauma, Ca/Trigs ok, she is on several medications that are class Ib causes (omeprazole, losartan if she is actually taking at however it sounds like she has been on these for a long time) -GB u/s unremarkable *Hypertensive urgency: 2/2 pain and underlying HTN -Improved with pain control *Diabetes with retinopathy (legally blind): *End-stage renal disease(mwf): Follows with Dr. De Guzman *Anemia, chronic: *Hypertension: Follows with [facility] cardiology for hypertension denies any CHF or CAD *Depression *GERD *Obesity P: -contclear liquid diet -Nephrology for hemodialysis -DC Prilosec and losartan for now -Clarify home medications, especially blood pressure medications -pain control, antiemetics -Continue other home medications -SSI -ppx: Heparin/home ppi
[2018-04-18 07:06] LABS: ALT/SGPT 10 U/l (0-40); Albumin 3.3 gm/dL (3.2-5.2); Albumin/Globulin Ratio 1.1 (1.0-2.3); Alkaline Phosphatase 73 U/L (39-117); Bilirubin,Direct < 0.2 mg/dL (0.0-0.3); Blood Urea Nitrogen 62 mg/dl (6-20); Gamma Glutamyl Transpeptidase 10 U/L (5-36); Uric Acid 6.4 mg/dL (2.5-8.0)
[2018-04-18] MEDS: HYDROmorphone 2 MG/ML VIAL IV PRN ×4 (07:17→23:13)
[2018-04-18] MEDS ORDERED: PANTOPRAZOLE 40 MG VIAL IV SCH (07:30)
[2018-04-18] MEDS ORDERED: PANTOPRAZOLE 40 MG TABLET PO SCH (07:30)
[2018-04-18] MEDS ORDERED: CARVEDILOL 12.5 MG TABLET PO SCH (08:00)
[2018-04-18 08:46] LABS: Lipase 76 U/L (7-60)
[2018-04-18] MEDS ORDERED: INSULIN GLARGINE, HUMAN 1 UNIT/0.01 ML SQ SCH (09:00)
[2018-04-18] MEDS ORDERED: amLODIPine 10 MG TABLET PO SCH (09:00)
[2018-04-18] MEDS ORDERED: hydrALAZINE 25 MG TABLET PO SCH (09:00)
[2018-04-18] MEDS: TORSEMIDE 10 MG TABLET PO SCH (12:37)
[2018-04-18] MEDS: ASPIRIN 81 MG TAB.CHEW PO SCH (12:37)
[2018-04-18] MEDS: SERTRALINE 50 MG TABLET PO SCH (12:38)
[2018-04-18] MEDS: CINACALCET 30 MG TABLET PO SCH (12:38)
[2018-04-18] MEDS: DOCUSATE SODIUM 100 MG CAPSULE PO SCH ×2 (12:45→20:00)
[2018-04-18] MEDS: INSULIN GLARGINE, HUMAN 1 UNIT/0.01 ML SQ SCH (14:49)
[2018-04-18] MEDS: HEPARIN 5,000 UNIT/ML VIAL SQ SCH ×2 (14:51→20:00)
[2018-04-18] MEDS: CARVEDILOL 12.5 MG TABLET PO SCH (16:52)
[2018-04-18] MEDS: diphenhydrAMINE 50 MG/ML VIAL IV PRN (17:31)
[2018-04-19] MEDS: INSULIN LISPRO 1 UNIT/0.01 ML UNIT SQ SCH ×4 (00:49→17:19)
[2018-04-19] MEDS: 0.9 % SODIUM CHLORIDE 10 ML SYRINGE IV SCH ×6 (05:52→21:10)
[2018-04-19 06:50] LABS: Basophils # (Auto) 0 K/mcL (0.0-0.3); Basophils % (Auto) 0.6 % (0.0-2.0); Eosinophils # (Auto) 0.2 K/mcL (0.0-0.7); Eosinophils % (Auto) 3.5 % (0.0-7.0); Lymphocytes # (Auto) 1.2 K/mcL (1.5-4.8); Lymphocytes % (Auto) 24.7 % (15.5-49.0); Mean Cell Volume 92.7 fL (80.0-100.0); Mean Corpuscular Hemoglobin 30.5 pg (26.0-34.0); Monocytes # (Auto) 0.4 K/mcL (0.1-0.9); Monocytes % (Auto) 7.2 % (1.0-12.0); Platelet Count 203 K/mcL (140-440); RBC 2.96 M/mcL (4.00-5.20); Red Cell Distribution Width 14.4 % (11.5-14.5)
--- NOTE | 2018-04-19 06:59 | Internal Med Progress Note ---
Medical - PN: Subj Patient information: Note initiated : 04/19/18 at 6:55 am Service Date, if different from initiated Date: [] Patient: Carlene Maddox a 47 y/o F admitted on 04/17/18 for N/V, Diabetic, Dialysis. Chief Complaint: [] Interval history: Ms. Maddox is a 47 year old F who presents to the ER with severe abdominal pain. She states she went to bed feeling fine and she woke up at 730 with severe squeezing type abdominal pain mid up abdomen shooting straight through to the back. She came to ER set of dialysis because of the pain. In the ER she was evaluated including CT abdomen pelvis no acute pathology presentation labs clinically evident for pancreatitis. Patient denies any trauma no new medications denies alcohol use. Patient states the pain came on acutely. Last time she had any pain similar to this is when she had perforation of abdominal viscus perforation. She did have a gallbladder ultrasound in ER which showed no stones as well. And [employer] outpatient ER and was recommended to get her dialysis today. Patient has had diarrhea as well however this common for her she has had over the past week. She did develop some nausea vomiting with the abdominal pain. Vomitus was described as yellow and ascitic. She vomited 4 times. No fever chills headaches no chest pain coughing or shortness of breath. Also found to be hypertensive in the ER. Try to clarify her medications she could not give me much information. I see if 5 different blood pressure medications I cannot imagine she is on all of them will to clarify the medication list. 04/18 States difficulty in sleeping because of noise interruptions and nausea. However, her abdominal pain although still present is improved, and her nausea vomiting is not as severe. She did urinate a little bit over night. Feels more comfortable. 04/19 Had nausea and vomiting until about midnight. Then was able to sleep and slept better. No nausea vomiting this morning occasional headache. Abdominal pain present but slowly improving. Tolerated a full liquid diet last night well. Does note that she started a hernia belt recently and did have a lot of abdominal pain after she started it and did not feel well thereafter. Potential cause of pancreatic irritation. Review of Systems: denies headache/fever/chills/chest pain/cough/dyspnea/diarrhea. Otherwise see above. - Constitutional Vitals: Vital Signs Temp Pulse Resp BP Pulse Ox 98.0 F 85 20 144/81 98 04/19/18 04:00 04/19/18 04:00 04/19/18 04:00 04/19/18 04:00 04/19/18 04:00 Period Temp Pulse Resp BP Sys/Shin Pulse Ox Last 24 Hr 97 F-99.0 F 66-86 14-20 133-188/64-95 90-100 Intake and Output 04/18/18 04/19/18 04/19/18 21:59 05:59 13:59 Weight 85.275 kg Intake & Output: Intake & Output 04/18/18 04/19/18 04/19/18 21:59 05:59 13:59 Weight 85.275 kg Other: Meal Dinner Percent of Meal Consumed 100% Feeding Ability Independent # Voids 1 Exam: General: Alert, Awake, no acute distress HEENT: EOMI, neck supple CV: RRR, 1/6 SM, Pulm: Clear b/l, no wheezing/rhonchi/rales Abd: soft, tender to palpation epigastrium but improving, bowel sounds present x4 Ext: no clubbing/cyanosis, trace b/l LE edema Neuro: Alert, no focal deficits, moves all extremities Skin: warm/dry Medical - PN: Obj Da - Labs CBC & Chem 7: 04/19/18 04:05 04/19/18 04:05 Labs: Abnormal Lab Results 04/19/18 04/18/18 04/18/18 04:05 07:29 04:00 RBC 2.96 L Hgb 9.0 L Hct 27.4 L Gran % Lymph % (Auto) Lymph # (Auto) 1.2 L Anion Gap BUN 62 H Creatinine 7.8 H* Glucose 116 H Phosphorus 5.9 H Magnesium 2.7 H Triglycerides 183 H LDL Cholesterol, Calc Non-HDL Cholesterol Lipase 76 H Urine Protein Urine Glucose (UA) Ur Squamous Epith Cells Urine Bacteria 04/18/18 04/17/18 04/17/18 04:00 18:45 11:42 RBC 3.14 L Hgb 9.7 L Hct 29.2 L Gran % Lymph % (Auto) Lymph # (Auto) 1.4 L Anion Gap BUN Creatinine Glucose Phosphorus Magnesium Triglycerides 159 H LDL Cholesterol, Calc 121 H Non-HDL Cholesterol 152 H Lipase Urine Protein 100 A Urine Glucose (UA) 150 A Ur Squamous Epith Cells 7 H Urine Bacteria Few A 04/17/18 04/17/18 04/17/18 11:42 11:16 11:16 RBC 3.54 L Hgb 10.8 L Hct 32.4 L Gran % 79.4 H Lymph % (Auto) 11.7 L Lymph # (Auto) 1.1 L Anion Gap 18.0 H BUN 58 H Creatinine 7.1 H* Glucose 194 H Phosphorus Magnesium Triglycerides LDL Cholesterol, Calc Non-HDL Cholesterol Lipase 630 H Urine Protein Urine Glucose (UA) Ur Squamous Epith Cells Urine Bacteria Meds: Medications Acetaminophen (Tylenol) 650 mg PO Q6HP PRN PRN Reason: PAIN/FEVER > 101 Last Admin: 04/17/18 23:48 Dose: 650 mg Amlodipine Besylate (Norvasc) 5 mg PO DAILY [facility] Aspirin (Aspirin) 81 mg PO DAILY [facility] Last Admin: 04/18/18 12:37 Dose: Not Given Bisacodyl (Dulcolax) 10 mg SC Q3DP PRN PRN Reason: Constipation Carvedilol (Coreg) 12.5 mg PO BIDCC [facility] Last Admin: 04/18/18 16:52 Dose: 12.5 mg Cinacalcet (Sensipar) 30 mg PO QDAY [facility] Last Admin: 04/18/18 12:38 Dose: Not Given Diagnostic Test (Pha) (Accu-Chek) 1 each FS Q6 [facility] Diphenhydramine HCl (Benadryl) 25 mg IV Q6HP PRN PRN Reason: Pruritus and insomnia Last Admin: 04/18/18 17:31 Dose: 25 mg Docusate Sodium (Colace) 100 mg PO BID [facility] Last Admin: 04/18/18 20:00 Dose: Not Given Heparin Sodium (Porcine) (Heparin) 5,000 unit SQ Q12 [facility] Last Admin: 04/18/18 20:00 Dose: 5,000 unit Hydromorphone HCl (Dilaudid) 1 mg IV Q2HP PRN PRN Reason: PAIN LEVEL > 6 Last Admin: 04/18/18 23:13 Dose: 1 mg Insulin Glargine (Lantus) 20 unit SQ DAILY [facility] Last Admin: 04/18/18 14:49 Dose: Not Given Insulin Human Lispro (Humalog) 0 unit SQ Q6 [facility]; Protocol Last Admin: 04/19/18 05:52 Dose: Not Given Labetalol HCl (Labetalol Hcl) 0 mg IV Q2HP PRN PRN Reason: Hypertension Ondansetron HCl (Zofran) 4 mg IV Q4HP PRN PRN Reason: Nausea And Vomiting Last Admin: 04/18/18 23:13 Dose: 4 mg Pantoprazole Sodium (Protonix) 40 mg IV QAMAC [facility] Last Admin: 04/18/18 06:43 Dose: 40 mg Prochlorperazine Maleate (Compazine) 12.5 mg SC Q12HP PRN PRN Reason: Nausea And Vomiting Promethazine HCl (Phenergan) 12.5 mg PO Q6HP PRN PRN Reason: Nausea And Vomiting Last Admin: 04/18/18 20:00 Dose: 12.5 mg Sertraline HCl (Zoloft) 50 mg PO QDAY [facility] Last Admin: 04/18/18 12:38 Dose: Not Given Sodium Chloride (Saline Flush) 10 ml IV Q8 [facility] Last Admin: 04/19/18 05:52 Dose: 10 ml Torsemide (Demadex) 20 mg PO DAILY [facility] Last Admin: 04/18/18 12:37 Dose: Not Given Medical - PN: A/P - Time Spent With Patient Total time spent is greater than 50% in coordination of care (as documented) at patient's floor/unit and/or counseling patient: - Narrative A/P Narrative: A: *Acute pancreatitis: Unknown etiology >no alcohol use, no cholelithiasis gallbladder unremarkable, No trauma, Ca/Trigs ok, she is on several medications that are class Ib causes (omeprazole, losartan if she is actually taking it, however it sounds like she has been on these for a long time) -GB u/s unremarkable -improving *Hypertensive urgency: 2/2 pain and underlying HTN -Improved with pain control and addition of her past medications *Diabetes with retinopathy (legally blind): *ESRD(mwf): Follows with Dr. De Guzman *Anemia, chronic: *Hypertension: Follows with [facility] cardiology for hypertension denies any CHF or CAD, but sounds like she has not been on any BP meds *Depression *GERD *Obesity P: -on full liquid diet -Nephrology for hemodialysis -DC Prilosec and losartan for now (she likely was not on anyway) -pain control, antiemetics -cont coreg/norvasc -ambulate -ppx: Heparin/home ppi
--- NOTE | 2018-04-19 07:09 | Nephrology Progress Note ---
Subjective Patient information: Note initiated : 04/19/18 at 7:07 am Carlene Maddox is a 47-year-old female admitted on 04/17/18 for acute pancreatitis. Chief Complaint: Nausea, vomiting, abdominal pain Principal diagnosis: Acute pancreatitis; ESRD on HD Interval history: Hemodialysis on 04/18/18 Pertinent ROS: Feeling better Weakness No shortness of breath Objective - Vital Signs Vital signs: Vital Signs Temp Pulse Pulse Resp BP BP Pulse Ox 04/19/18 04:00 98.0 F 85 20 144/81 98 04/19/18 00:00 99.0 F 66 16 134/68 95 04/18/18 20:00 16 140/69 99 04/18/18 19:00 18 134/64 90 04/18/18 15:36 98.3 F 82 14 169/81 97 04/18/18 13:57 97 F 85 181/83 04/18/18 13:28 77 150/86 04/18/18 12:59 80 150/86 04/18/18 12:31 72 149/72 04/18/18 11:59 67 145/78 04/18/18 11:57 97.3 F 86 14 165/84 04/18/18 11:29 86 165/84 04/18/18 11:05 80 133/72 04/18/18 10:32 80 149/78 04/18/18 10:06 97.7 F 80 158/78 Intake and Output 04/18/18 04/19/18 04/19/18 21:59 05:59 13:59 Other: Meal Dinner Percent of Meal Consumed 100% Feeding Ability Independent # Voids 1 Weight 188 lb Intake & Output: Intake & Output 04/18/18 04/19/18 04/19/18 21:59 05:59 13:59 Weight 188 lb Other: Meal Dinner Percent of Meal Consumed 100% Feeding Ability Independent # Voids 1 - General Appearance General appearance: chronically ill, frail EENT: mucous membranes moist Respiratory: clear Cardiology: no edema Gastrointestinal: tenderness Integumentary: warm and dry Neurologic: no focal deficit, alert and oriented x3 Musculoskeletal: no deformities Psychiatric: mood/affect appropriate, cooperative - Lab 04/19/18 04:05 04/19/18 04:05 Most recent lab results Calcium 8.8 mg/dl (8.6-10.4) 04/18/18 04:00 Phosphorus 5.9 mg/dL (2.7-4.5) H 04/18/18 04:00 Magnesium 2.7 mg/dL (1.6-2.5) H 04/18/18 04:00 Assessment and Plan (1) ESRD (end stage renal disease) on dialysis Carlene Maddox is a 47-year-old female with end-stage renal disease on chronic hemodialysis (through right arm AV fistula, at [facility], on [facility], followed by Dr. De Guzman), secondary hyperparathyroidism of renal origin, chronic anemia due to kidney disease, coronary artery disease, diabetes mellitus type 2, hypertension , admitted on 04/17/18 for acute pancreatitis. Plan: Next hemodialysis on Tuesday as outpatient. Status: Chronic Priority: Medium
[2018-04-19 07:11] LABS: Lipase 36 U/L (7-60)
[2018-04-19 07:12] LABS: Blood Urea Nitrogen 20 mg/dl (6-20)
[2018-04-19] MEDS: PANTOPRAZOLE 40 MG VIAL IV SCH (07:12)
[2018-04-19] MEDS: ONDANSETRON 4 MG/2 ML VIAL IV PRN ×3 (07:23→21:18)
[2018-04-19] MEDS: CARVEDILOL 12.5 MG TABLET PO SCH ×2 (07:31→17:14)
[2018-04-19] MEDS: HYDROmorphone 2 MG/ML VIAL IV PRN (08:38)
[2018-04-19] MEDS ORDERED: hydrALAZINE 20 MG/ML VIAL IV PRN (08:55)
--- NOTE | 2018-04-19 09:15 | Discharge Summary ---
Medical - DS: Prov Patient information: Note initiated : 04/19/18 at 9:11 am Service Date, if different from initiated Date: [] Patient: Carlene Maddox a 47 y/o F admitted on 04/17/18 for N/V, Diabetic, Dialysis. Chief Complaint: [] Date of admission: 04/17/18 18:12 Discharge date: 04/20/18 Primary care physician: Padmini Naik Consults: 04/17/18 12:48 Consult to Physician [CONS] Stat Comment: Consulting Provider: Antonio Lam Reason For Exam: Physician to Consult 04/17/18 16:11 Consult to Physician [CONS] Stat Comment: Consulting Provider: Robin Chen Reason For Exam: Physician to Consult Medical - DS: Meds - Discharge Medications Prescriptions: amLODIPine [Norvasc] 5 mg PO DAILY #30 tab Carvedilol [Coreg] 25 mg PO BIDCC #60 tab HYDROcodone/ACETAMINOPHEN [[place] 5-325 Tablet] 5 mg PO Q4HP PRN #20 tab PRN Reason: Pain Ondansetron HCl [Zofran ODT] 4 mg PO Q6H PRN #20 tab PRN Reason: nausea and vomiting Active and Home Medications: Home Medications ondansetron 4 mg disintegrating tablet 4 mg PO Q6H PRN #20 tab 11/21/17 [Rx Confirmed 04/18/18 Last Taken Unknown] sucroferric oxyhydroxide 500 mg chewable tablet 1,000 mg PO TID #180 tab [Rx Confirmed 04/17/18 Last Taken Unknown] Medical - DS: Hosp Hospital course: Ms. Maddox is a 47 year old F who presents to the ER with severe abdominal pain. She states she went to bed feeling fine and she woke up at 730 with severe squeezing type abdominal pain mid up abdomen shooting straight through to the back. She came to ER set of dialysis because of the pain. In the ER she was evaluated including CT abdomen pelvis no acute pathology presentation labs clinically evident for pancreatitis. Patient denies any trauma no new medications denies alcohol use. Patient states the pain came on acutely. Last time she had any pain similar to this is when she had perforation of abdominal viscus perforation. She did have a gallbladder ultrasound in ER which showed no stones as well. And [employer] outpatient ER and was recommended to get her dialysis today. Patient has had diarrhea as well however this common for her she has had over the past week. She did develop some nausea vomiting with the abdominal pain. Vomitus was described as yellow and ascitic. She vomited 4 times. No fever chills headaches no chest pain coughing or shortness of breath. Also found to be hypertensive in the ER. Try to clarify her medications she could not give me much information. I see if 5 different blood pressure medications I cannot imagine she is on all of them will to clarify the medication list. 04/18 States difficulty in sleeping because of noise interruptions and nausea. However, her abdominal pain although still present is improved, and her nausea vomiting is not as severe. She did urinate a little bit over night. Feels more comfortable. 04/19 Had nausea and vomiting until about midnight. Then was able to sleep and slept better. No nausea vomiting this morning occasional headache. Abdominal pain present but slowly improving. Tolerated a full liquid diet last night well. Does note that she started a hernia belt recently and did have a lot of abdominal pain after she started it and did not feel well thereafter. Potential cause of pancreatic irritation. Suspect pancreatitis could be trauma related. 04/20 Tolerating full liquid diet. Does have some nausea systemic after some cream of rice yesterday contact center director but throughout the remainder of the day did well with the diet. Rested last night. stable for discharge. Discharge diagnosis: Acute pancreatitis hypertensive urgency - Time Spent with Patient Total time spent providing and/or coordinating discharge services: Greater than 30 minutes Medical - DS: Exam - Constitutional Vitals: Vital Signs Temp Pulse Pulse Resp BP BP BP 04/19/18 07:25 177/85 04/19/18 07:10 98.3 F 16 187/86 04/19/18 04:00 98.0 F 85 20 144/81 04/19/18 00:00 99.0 F 66 16 134/68 04/18/18 20:00 16 140/69 04/18/18 19:00 18 134/64 04/18/18 15:36 98.3 F 82 14 169/81 04/18/18 13:57 97 F 85 181/83 04/18/18 13:28 77 150/86 04/18/18 12:59 80 150/86 11/13/18 12:31 72 149/72 04/18/18 11:59 67 145/78 04/18/18 11:57 97.3 F 86 14 165/84 04/18/18 11:29 86 165/84 04/18/18 11:05 80 133/72 04/18/18 10:32 80 149/78 04/18/18 10:06 97.7 F 80 158/78 Pulse Ox 04/19/18 07:25 96 04/19/18 07:10 98 04/19/18 04:00 98 04/19/18 00:00 95 04/18/18 20:00 99 04/18/18 19:00 90 04/18/18 15:36 97 04/18/18 13:57 04/18/18 13:28 04/18/18 12:59 04/18/18 12:31 04/18/18 11:59 04/18/18 11:57 04/18/18 11:29 04/18/18 11:05 04/18/18 10:32 04/18/18 10:06 Intake and Output 04/18/18 04/19/18 04/19/18 21:59 05:59 13:59 Other: Meal Dinner Percent of Meal Consumed 100% Feeding Ability Independent # Voids 1 Weight 85.275 kg Medical - DS: Data Labs on day of discharge: Labs from last 24 hours 04/19/18 04/19/18 04/19/18 04:05 04:05 04:05 WBC 4.9 RBC 2.96 L Hgb 9.0 L Hct 27.4 L MCV 92.7 MCH 30.5 MCHC 33.0 RDW 14.4 Plt Count 203 MPV 8.8 Gran % 64.0 Lymph % (Auto) 24.7 [place] % (Auto) 7.2 Eos % (Auto) 3.5 Baso % (Auto) 0.6 Gran # 3.2 Lymph # (Auto) 1.2 L [place] # (Auto) 0.4 Eos # (Auto) 0.2 Baso # (Auto) 0 Sodium 137 Potassium 4.4 Chloride 98 Carbon Dioxide 30 Anion Gap 9.0 BUN 20 Creatinine 4.6 H GFR Calculation 11 Glucose 105 Calcium 8.8 Lactate Dehydrogenase Lipase 36 04/18/18 07:29 WBC RBC Hgb Hct MCV MCH MCHC RDW Plt Count MPV Gran % Lymph % (Auto) [place] % (Auto) Eos % (Auto) Baso % (Auto) Gran # Lymph # (Auto) [place] # (Auto) Eos # (Auto) Baso # (Auto) Sodium Potassium Chloride Carbon Dioxide Anion Gap BUN Creatinine GFR Calculation Glucose Calcium Lactate Dehydrogenase 191 Lipase Medical - DS: A/P - Patient/Caregiver Discharge Instructions Activity: increase activity as tolerated Diet: Full Liquid (advance as tolerated to low fat) Prescriptions: amLODIPine [Norvasc] 5 mg PO DAILY #30 tab Carvedilol [Coreg] 25 mg PO BIDCC #60 tab HYDROcodone/ACETAMINOPHEN [[place] 5-325 Tablet] 5 mg PO Q4HP PRN #20 tab PRN Reason: Pain Ondansetron HCl [Zofran ODT] 4 mg PO Q6H PRN #20 tab PRN Reason: nausea and vomiting - Follow up Plan Follow up with: Dee De Guzman MD [Physician] - Padmini Naik ARNP [Primary Care Provider] - Disposition: Home, Self-Care Prognosis: Fair Rehab Potential: Fair
[2018-04-19] MEDS: INSULIN GLARGINE, HUMAN 1 UNIT/0.01 ML SQ SCH (09:24)
[2018-04-19] MEDS: HEPARIN 5,000 UNIT/ML VIAL SQ SCH ×2 (09:24→21:10)
[2018-04-19] MEDS: TORSEMIDE 10 MG TABLET PO SCH (09:25)
[2018-04-19] MEDS: ASPIRIN 81 MG TAB.CHEW PO SCH (09:25)
[2018-04-19] MEDS: CINACALCET 30 MG TABLET PO SCH (09:25)
[2018-04-19] MEDS: SERTRALINE 50 MG TABLET PO SCH (09:25)
[2018-04-19] MEDS: amLODIPine 5 MG TABLET PO SCH (09:26)
[2018-04-19] MEDS: DOCUSATE SODIUM 100 MG CAPSULE PO SCH ×2 (09:26→21:10)
[2018-04-19] MEDS: HYDROcodone/APAP 5/325MG TABLET PO PRN ×2 (13:50→18:02)
[2018-04-19] MEDS: diphenhydrAMINE 50 MG/ML VIAL IV PRN (21:09)
[2018-04-20] MEDS: HYDROmorphone 2 MG/ML VIAL IV PRN (01:02)
[2018-04-20] MEDS: INSULIN LISPRO 1 UNIT/0.01 ML UNIT SQ SCH ×3 (01:30→12:41)
[2018-04-20] MEDS: 0.9 % SODIUM CHLORIDE 10 ML SYRINGE IV SCH (05:45)
[2018-04-20] MEDS: PANTOPRAZOLE 40 MG VIAL IV SCH (07:10)
[2018-04-20] MEDS: ONDANSETRON 4 MG/2 ML VIAL IV PRN ×2 (08:17→12:40)
--- NOTE | 2018-04-20 08:34 | Internal Med Progress Note ---
Medical - PN: Subj Patient information: Note initiated : 04/20/18 at 6:58 am Service Date, if different from initiated Date: [] Patient: Carlene Maddox a 47 y/o F admitted on 04/17/18 for N/V, Diabetic, Dialysis. Chief Complaint: [] Interval history: Ms. Maddox is a 47 year old F who presents to the ER with severe abdominal pain. She states she went to bed feeling fine and she woke up at 730 with severe squeezing type abdominal pain mid up abdomen shooting straight through to the back. She came to ER set of dialysis because of the pain. In the ER she was evaluated including CT abdomen pelvis no acute pathology presentation labs clinically evident for pancreatitis. Patient denies any trauma no new medications denies alcohol use. Patient states the pain came on acutely. Last time she had any pain similar to this is when she had perforation of abdominal viscus perforation. She did have a gallbladder ultrasound in ER which showed no stones as well. 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 Patient has had diarrhea as well however this common for her she has had over the past week. She did develop some nausea vomiting with the abdominal pain. Vomitus was described as yellow and ascitic. She vomited 4 times. No fever chills headaches no chest pain coughing or shortness of breath. Also found to be hypertensive in the ER. Try to clarify her medications she could not give me much information. I see if 5 different blood pressure medications I cannot imagine she is on all of them will to clarify the medication list. 04/18 States difficulty in sleeping because of noise interruptions and nausea. However, her abdominal pain although still present is improved, and her nausea vomiting is not as severe. She did urinate a little bit over night. Feels more comfortable. 04/19 Had nausea and vomiting until about midnight. Then was able to sleep and slept better. No nausea vomiting this morning occasional headache. Abdominal pain present but slowly improving. Tolerated a full liquid diet last night well. Does note that she started a hernia belt recently and did have a lot of abdominal pain after she started it and did not feel well thereafter. Potential cause of pancreatic irritation. 04/20 Review of Systems: denies headache/fever/chills/chest pain/cough/dyspnea/diarrhea. Otherwise see above. - Constitutional Vitals: Vital Signs Temp Pulse Resp BP Pulse Ox 99.0 F 72 20 120/64 94 04/20/18 04:36 04/20/18 04:36 04/20/18 04:36 04/20/18 04:36 04/20/18 04:36 Period Temp Pulse Resp BP Sys/Shin Pulse Ox Last 24 Hr 97.9 F-99.1 F 64-85 16-20 120-187/64-95 94-100 Intake and Output 04/19/18 04/20/18 04/20/18 21:59 05:59 13:59 Intake Total 920 / 920 900 / 900 Output Total 275 / 275 75 / 75 Balance 645 / 645 825 / 825 Weight 84.822 kg Intake & Output: Intake & Output 04/19/18 04/20/18 04/20/18 21:59 05:59 13:59 Intake Total 920 / 920 900 / 900 Output Total 275 / 275 75 / 75 Balance 645 / 645 825 / 825 Weight 84.822 kg Intake: Oral 920 / 920 600 / 600 GI Tube Flush 300 / 300 Output: Void Amount 75 / 75 75 / 75 Emesis 200 / 200 Other: Meal Dinner Percent of Meal Consumed 100% Feeding Ability Assist with Tray Set Up Urine Appearance Sediment Urine Color Dark Yellow Urine Odor Strong Exam: General: Alert, Awake, no acute distress HEENT: EOMI, neck supple CV: RRR, 1/6 SM, Pulm: Clear b/l, no wheezing/rhonchi/rales Abd: soft, tender to palpation epigastrium but improving, bowel sounds present x4 Ext: no clubbing/cyanosis, trace b/l LE edema Neuro: Alert, no focal deficits, moves all extremities Skin: warm/dry Medical - PN: Obj Da - Labs CBC & Chem 7: 04/19/18 04:05 04/19/18 04:05 Labs: Abnormal Lab Results 04/19/18 04/19/18 04/18/18 04:05 04:05 07:29 RBC 2.96 L Hgb 9.0 L Hct 27.4 L Gran % Lymph % (Auto) Lymph # (Auto) 1.2 L Anion Gap BUN Creatinine 4.6 H Glucose Phosphorus Magnesium Triglycerides LDL Cholesterol, Calc Non-HDL Cholesterol Lipase 76 H Urine Protein Urine Glucose (UA) Ur Squamous Epith Cells Urine Bacteria 04/18/18 04/18/18 04/17/18 04:00 04:00 18:45 RBC 3.14 L Hgb 9.7 L Hct 29.2 L Gran % Lymph % (Auto) Lymph # (Auto) 1.4 L Anion Gap BUN 62 H Creatinine 7.8 H* Glucose 116 H Phosphorus 5.9 H Magnesium 2.7 H Triglycerides 183 H LDL Cholesterol, Calc Non-HDL Cholesterol Lipase Urine Protein 100 A Urine Glucose (UA) 150 A Ur Squamous Epith Cells 7 H Urine Bacteria Few A 04/17/18 04/17/18 04/17/18 11:42 11:42 11:16 RBC Hgb Hct Gran % Lymph % (Auto) Lymph # (Auto) Anion Gap 18.0 H BUN 58 H Creatinine 7.1 H* Glucose 194 H Phosphorus Magnesium Triglycerides 159 H LDL Cholesterol, Calc 121 H Non-HDL Cholesterol 152 H Lipase 630 H Urine Protein Urine Glucose (UA) Ur Squamous Epith Cells Urine Bacteria 04/17/18 11:16 RBC 3.54 L Hgb 10.8 L Hct 32.4 L Gran % 79.4 H Lymph % (Auto) 11.7 L Lymph # (Auto) 1.1 L Anion Gap BUN Creatinine Glucose Phosphorus Magnesium Triglycerides LDL Cholesterol, Calc Non-HDL Cholesterol Lipase Urine Protein Urine Glucose (UA) Ur Squamous Epith Cells Urine Bacteria Meds: Medications Acetaminophen (Tylenol) 650 mg PO Q6HP PRN PRN Reason: PAIN/FEVER > 101 Last Admin: 04/17/18 23:48 Dose: 650 mg Hydrocodone Bitart/Acetaminophen ([place] 5/325mg) 1 tab PO Q4HP PRN PRN Reason: PAIN LEVEL 3-6 Last Admin: 04/19/18 18:02 Dose: 1 tab Amlodipine Besylate (Norvasc) 5 mg PO DAILY [facility] Last Admin: 04/19/18 09:26 Dose: 5 mg Aspirin (Aspirin) 81 mg PO DAILY [facility] Last Admin: 04/19/18 09:25 Dose: 81 mg Bisacodyl (Dulcolax) 10 mg NC Q3DP PRN PRN Reason: Constipation Carvedilol (Coreg) 25 mg PO BIDCC [facility] Last Admin: 04/19/18 17:14 Dose: 25 mg Cinacalcet (Sensipar) 30 mg PO QDAY [facility] Last Admin: 04/19/18 09:25 Dose: 30 mg Diagnostic Test (Pha) (Accu-Chek) 1 each FS Q6 [facility] Last Admin: 04/20/18 05:44 Dose: 1 each Diphenhydramine HCl (Benadryl) 25 mg IV Q6HP PRN PRN Reason: Pruritus and insomnia Last Admin: 04/19/18 21:09 Dose: 25 mg Docusate Sodium (Colace) 100 mg PO BID [facility] Last Admin: 04/19/18 21:10 Dose: 100 mg Heparin Sodium (Porcine) (Heparin) 5,000 unit SQ Q12 [facility] Last Admin: 04/19/18 21:10 Dose: 5,000 unit Hydralazine HCl (Apresoline) 0 mg IV Q2HP PRN PRN Reason: Hypertension Hydromorphone HCl (Dilaudid) 1 mg IV Q2HP PRN PRN Reason: PAIN LEVEL > 6 Last Admin: 04/20/18 01:02 Dose: 1 mg Insulin Glargine (Lantus) 20 unit SQ DAILY [facility] Last Admin: 04/19/18 09:24 Dose: 20 unit Insulin Human Lispro (Humalog) 0 unit SQ Q6 [facility]; Protocol Last Admin: 04/20/18 05:45 Dose: Not Given Labetalol HCl (Labetalol Hcl) 0 mg IV Q2HP PRN PRN Reason: Hypertension Ondansetron HCl (Zofran) 4 mg IV Q4HP PRN PRN Reason: Nausea And Vomiting Last Admin: 04/19/18 21:18 Dose: 4 mg Pantoprazole Sodium (Protonix) 40 mg IV QAMAC [facility] Last Admin: 04/19/18 07:12 Dose: 40 mg Prochlorperazine Maleate (Compazine) 12.5 mg NC Q12HP PRN PRN Reason: Nausea And Vomiting Last Admin: 04/19/18 14:19 Dose: 12.5 mg Promethazine HCl (Phenergan) 12.5 mg PO Q6HP PRN PRN Reason: Nausea And Vomiting Last Admin: 04/18/18 20:00 Dose: 12.5 mg Sertraline HCl (Zoloft) 50 mg PO QDAY [facility] Last Admin: 04/19/18 09:25 Dose: 50 mg Sodium Chloride (Saline Flush) 10 ml IV Q8 [facility] Last Admin: 04/20/18 05:45 Dose: 10 ml Torsemide (Demadex) 20 mg PO DAILY [facility] Last Admin: 04/19/18 09:25 Dose: 20 mg Medical - PN: A/P - Time Spent With Patient Total time spent is greater than 50% in coordination of care (as documented) at patient's floor/unit and/or counseling patient: - Narrative A/P Narrative: A: *Acute pancreatitis: Unknown etiology >no alcohol use, no cholelithiasis gallbladder unremarkable, No trauma, Ca/Trigs ok, she is on several medications that are class Ib causes (omeprazole, losartan if she is actually taking it, however it sounds like she has been on these for a long time) -GB u/s unremarkable -improving *Hypertensive urgency: 2/2 pain and underlying HTN -Improved with pain control and addition of her past medications *Diabetes with retinopathy (legally blind): *ESRD([facility]): Follows with Dr. De Guzman *Anemia, chronic: *Hypertension: Follows with [facility] cardiology for hypertension denies any CHF or CAD, but sounds like she has not been on any BP meds *Depression *GERD *Obesity P: -on full liquid diet -Nephrology for hemodialysis -DC Prilosec and losartan for now (she likely was not on anyway) -pain control, antiemetics -cont coreg/norvasc -ambulate -ppx: Heparin/home ppi
--- NOTE | 2018-04-20 08:34 | Nephrology Progress Note ---
Subjective Patient information: Note initiated : 04/20/18 at 6:33 am Carlene Maddox is a 47-year-old female admitted on 04/17/18 for acute pancreatitis. Chief Complaint: Nausea, vomiting, abdominal pain Principal diagnosis: Acute pancreatitis; ESRD on HD Interval history: Hemodialysis on 04/18/18 Pertinent ROS: Feeling better Weakness No shortness of breath Objective - Vital Signs Vital signs: Vital Signs Temp Pulse Resp BP Pulse Ox 04/20/18 04:36 99.0 F 72 20 120/64 94 04/20/18 01:00 98.9 F 72 20 145/68 99 04/19/18 20:00 98.3 F 69 18 148/72 100 04/19/18 17:00 97.9 F 64 18 150/73 98 04/19/18 13:00 99.1 F H 85 18 96 04/19/18 09:00 146/64 04/19/18 08:15 181/95 04/19/18 07:25 177/85 96 04/19/18 07:10 98.3 F 16 187/86 96 Intake and Output 04/19/18 04/20/18 04/20/18 21:59 05:59 13:59 Intake Total 920 / 920 900 / 900 Output Total 275 / 275 75 / 75 Balance 645 / 645 825 / 825 Intake: Oral 920 / 920 600 / 600 GI Tube Flush 300 / 300 Output: Void Amount 75 / 75 75 / 75 Emesis 200 / 200 Other: Meal Dinner Percent of Meal Consumed 100% Feeding Ability Assist with Tray Set Up Urine Appearance Sediment Urine Color Dark Yellow Urine Odor Strong Weight 187 lb Intake & Output: Intake & Output 04/19/18 04/20/18 04/20/18 21:59 05:59 13:59 Intake Total 920 / 920 900 / 900 Output Total 275 / 275 75 / 75 Balance 645 / 645 825 / 825 Weight 187 lb Intake: Oral 920 / 920 600 / 600 GI Tube Flush 300 / 300 Output: Void Amount 75 / 75 75 / 75 Emesis 200 / 200 Other: Meal Dinner Percent of Meal Consumed 100% Feeding Ability Assist with Tray Set Up Urine Appearance Sediment Urine Color Dark Yellow Urine Odor Strong - General Appearance General appearance: chronically ill, fatigue EENT: mucous membranes moist Neck: supple Respiratory: clear Cardiology: edema Gastrointestinal: no tenderness Integumentary: no rash, warm and dry Neurologic: no focal deficit, alert and oriented x3 Musculoskeletal: no deformities Psychiatric: mood/affect appropriate, cooperative - Lab 04/19/18 04:05 04/19/18 04:05 Most recent lab results Calcium 8.8 mg/dl (8.6-10.4) 04/19/18 04:05 Phosphorus 5.9 mg/dL (2.7-4.5) H 04/18/18 04:00 Magnesium 2.7 mg/dL (1.6-2.5) H 04/18/18 04:00 Assessment and Plan (1) ESRD (end stage renal disease) on dialysis Carlene Maddox is a 47-year-old female with end-stage renal disease on chronic hemodialysis (through right arm AV fistula, at [facility], on MWF, followed by Dr. De Guzman), secondary hyperparathyroidism of renal origin, chronic anemia due to kidney disease, coronary artery disease, diabetes mellitus type 2, hypertension , admitted on 04/17/18 for acute pancreatitis. Plan: Next hemodialysis on Tuesday as outpatient. Status: Chronic Priority: Medium
[2018-04-20] MEDS: SERTRALINE 50 MG TABLET PO SCH (09:44)
[2018-04-20] MEDS: DOCUSATE SODIUM 100 MG CAPSULE PO SCH (09:44)
[2018-04-20] MEDS: HEPARIN 5,000 UNIT/ML VIAL SQ SCH (09:45)
[2018-04-20] MEDS: amLODIPine 5 MG TABLET PO SCH (09:45)
[2018-04-20] MEDS: CARVEDILOL 12.5 MG TABLET PO SCH (09:45)
[2018-04-20] MEDS: INSULIN GLARGINE, HUMAN 1 UNIT/0.01 ML SQ SCH (09:45)
[2018-04-20] MEDS: ASPIRIN 81 MG TAB.CHEW PO SCH (09:45)
[2018-04-20] MEDS: TORSEMIDE 10 MG TABLET PO SCH (09:45)
[2018-04-20] MEDS: CINACALCET 30 MG TABLET PO SCH (09:47)
== END 2018-04-20 14:15 | disposition home or self-care (01) | DRG 438 ==
LOC: ED 11:04 → ICU 18:12
PROVIDERS: ADMIT Internal Medicine; ATTEND Internal Medicine
CPT/HCPCS: 90935; 99231; J1170; J1200; J1644; J1815; J1817; J2060; J2405; J7030; J7040

== ENCOUNTER 2018-05-19 18:56 | Inpatient (IN) ==
--- NOTE | 2018-05-19 19:26 | Emergency Department Note ---
Abdominal Pain HPI - General Chief Complaint: Abdominal Pain Stated Complaint: Abd pain, vomiting Time Seen by Provider: 05/19/18 19:14 Source: patient Mode of arrival: wheelchair Limitations: no limitations - History of Present Illness HPI Narrative: This patient returns to the emergency room after dialysis. She was seen earlier this morning. She has a retroperitoneal hemorrhage on the right which may be from a renal cyst. She is now having persisting abdominal pain and nausea vomiting. I discussed the case with Dr. Martell the urologist who recommends just observing this. Dr. Foley will do the admission. - Related Data Home Medications Medication Instructions Recorded Confirmed diphenhydrAMINE [Benadryl] 25 mg PO Q4-6HP PRN 05/19/18 05/19/18 Previous Rx's Medication Instructions Recorded sucroferric oxyhydroxide 500 mg 1,000 mg PO TID #180 tab 12/05/17 chewable tablet Carvedilol [Coreg] 25 mg PO BIDCC #60 tab 04/19/18 amLODIPine [Norvasc] 5 mg PO DAILY #30 tab 04/19/18 Ondansetron HCl [Zofran ODT] 4 mg PO Q6H PRN #20 tab 04/20/18 HYDROmorphone HCL [Dilaudid] 2 mg PO Q4-6HP PRN #20 tab 05/19/18 Allergies Allergy/AdvReac Type Severity Reaction Status Date / Time codeine AdvReac Intermediate Vomiting Verified 05/19/18 18:56 diazepam [From Valium] AdvReac Other Verified 05/19/18 18:56 Review of Systems All systems ED: reviewed and negative except as stated. Abdominal Pain PMH - Past Medical History [facility] Narrative: Medical History (Last Updated 04/21/18 @ 07:53 by Antonio Lam MD) Acute whiplash injury (Acute) Bronchitis (Acute) Hypertensive urgency (Acute) Nausea & vomiting (Acute) Anemia (Acute) Leukocytosis (Acute) Hypothyroidism (Chronic) Vomiting (Chronic) Chest pain (Acute) Atypical chest pain (Acute) Obesity (Chronic) Secondary hyperparathyroidism of renal origin (Chronic) Proteinuria (Chronic) Vitamin D deficiency (Acute) Retinopathy, diabetic, background (Acute) Rash (Acute) Insomnia (Acute) Hypertension, essential, benign (Acute) Hyperlipidemia (Acute) Edema leg (Acute) 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) Diabetes mellitus type II, uncontrolled (Acute) CHF (congestive heart failure) (Acute) Chest pain (Acute) Past Surgical History Hx of abdominal surgery (Acute) H/O angioplasty (Acute) Family History sister Chronic kidney disease, stage V Acute myocardial infarction Medical history: Reports: coronary artery disease, DM, GERD, hyperlipidemia, hypertension, renal disease, thyroid disease, other Psychiatric history: Reports: depression Family history: Reports: other (diabetes) - Social History Smoking status: Former smoker Physical Exam Limitations: no limitations General appearance: alert Head: atraumatic Eye: Present: normal appearance ENT: normal exam Neck: Present: normal inspection Chest: Present: normal inspection Respiratory: Present: normal lung sounds bilaterally Cardiovascular: Present: regular rate, normal rhythm, normal heart sounds Abdominal: Present: soft, tenderness. Absent: distention, guarding, rebound, rigidity Abdominal tenderness: Present: RUQ, RLQ Neurological: Present: alert Psychiatric: Present: normal affect Skin: Present: warm, dry, intact Course Vital Signs Temperature 99.6 F H 05/19/18 19:03 Pulse Rate 93 H 05/19/18 19:03 Respiratory Rate 22 05/19/18 19:03 Blood Pressure 113/54 05/19/18 19:03 Pulse Oximetry (%) 96 05/19/18 19:03 Temperature 99.6 F H 05/19/18 19:03 Pulse Rate 93 H 05/19/18 19:03 Respiratory Rate 22 05/19/18 19:03 Blood Pressure 113/54 05/19/18 19:03 Pulse Oximetry (%) 96 05/19/18 19:03 Disposition Pt seen by SURGICAL GARMENT INSPECTOR/PA only: No Clinical Impression: Retroperitoneal hemorrhage Disposition: Xfer As Inpt ([facility]) Condition: Good Referrals: Padmini Naik ARNP [Primary Care Provider] - Time of Disposition: 19:25
--- NOTE | 2018-05-19 20:04 | Nephrology Consult Note ---
History of Present Illness - Reason for Consult Patient information: Note initiated : 05/19/18 at 8:01 pm Patient: Carlene Maddox a 48 y/o F admitted on for Abd pain, vomiting. Consult date: 05/19/18 end stage renal disease Requesting physician: Meng Erickson - Chief Complaint Abdominal pain - History of Present Illness Carlene Maddox is a 48-year-old female with end-stage renal disease on chronic hemodialysis (through right arm AV fistula, at [facility], on MW, followed by Dr. De Guzman), secondary hyperparathyroidism of renal origin, chronic anemia due to kidney disease, coronary artery disease, diabetes mellitus type 2, hypertension , admitted on 05/19/18 for acute abdominal pain. CT showed right retroperitoneal fluid collection. She had hemodialysis after CT with IV contrast today. Review of Systems Constitutional: weakness, no fever(s) Nose, mouth and throat: no nasal congestion, no sore throat Cardiovascular: no chest pain, no palpatations Respiratory: no dyspnea, no wheezing Gastrointestinal: abdominal pain, nausea Genitourinary: no dysuria, no hematuria Musculoskeletal: no joint swelling, no neck pain Integumentary: no rash, no wounds Neurological: no confusion, no syncope Psychiatric: no anxiety, no confusion Endocrine: no cold intolerance, no heat intolerance Hematologic/Lymphatic: no easy bleeding, no easy bruising Allergic/Immunologic: no tongue swelling, no uticaria Past History Past medical history: Medical History (Last Updated 04/21/18 @ 07:53 by Antonio Lam MD) Acute whiplash injury (Acute) Bronchitis (Acute) Hypertensive urgency (Acute) Nausea & vomiting (Acute) Anemia (Acute) Leukocytosis (Acute) Hypothyroidism (Chronic) Vomiting (Chronic) Chest pain (Acute) Atypical chest pain (Acute) Obesity (Chronic) Secondary hyperparathyroidism of renal origin (Chronic) Proteinuria (Chronic) Vitamin D deficiency (Acute) Retinopathy, diabetic, background (Acute) Rash (Acute) Insomnia (Acute) Hypertension, essential, benign (Acute) Hyperlipidemia (Acute) Edema leg (Acute) 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) Diabetes mellitus type II, uncontrolled (Acute) CHF (congestive heart failure) (Acute) Chest pain (Acute) Past surgical history: Past Surgical History Hx of abdominal surgery (Acute) H/O angioplasty (Acute) Past family history: Family History sister Chronic kidney disease, stage V Acute myocardial infarction Past social history: Social History No Social History Section defined Medications and Allergies Home Medications Medication Instructions Recorded Confirmed Type sucroferric oxyhydroxide 500 mg 1,000 mg PO TID #180 tab 12/05/17 05/19/18 Rx chewable tablet Carvedilol [Coreg] 25 mg PO BIDCC #60 tab 04/19/18 05/19/18 Rx amLODIPine [Norvasc] 5 mg PO DAILY #30 tab 04/19/18 05/19/18 Rx Ondansetron HCl [Zofran ODT] 4 mg PO Q6H PRN #20 tab 04/20/18 05/19/18 Rx HYDROmorphone HCL [Dilaudid] 2 mg PO Q4-6HP PRN #20 tab 05/19/18 05/19/18 Rx diphenhydrAMINE [Benadryl] 25 mg PO Q4-6HP PRN 05/19/18 05/19/18 History Allergies Allergy/AdvReac Type Severity Reaction Status Date / Time codeine AdvReac Intermediate Vomiting Verified 05/19/18 18:56 diazepam [From Valium] AdvReac Other Verified 05/19/18 18:56 Exam - Vital Signs Vital signs: Temp Pulse Resp BP Pulse Ox 99.6 F H 93 H 22 113/54 96 05/19/18 19:03 05/19/18 19:03 05/19/18 19:03 05/19/18 19:03 05/19/18 19:03 - General Appearance General appearance: well-developed, well-nourished EENT: mucous membranes moist Neck: supple Respiratory: clear Cardiology: no edema Gastrointestinal: tenderness Integumentary: no rash, warm and dry Neurologic: no focal deficit, alert and oriented x3 Musculoskeletal: no deformities Psychiatric: mood/affect appropriate, cooperative Assessment and Plan (1) ESRD (end stage renal disease) on dialysis Carlene Maddox is a 48-year-old female with end-stage renal disease on chronic hemodialysis (through right arm AV fistula, at [facility], on MWF, followed by Dr. De Guzman), secondary hyperparathyroidism of renal origin, chronic anemia due to kidney disease, coronary artery disease, diabetes mellitus type 2, hypertension , admitted on 05/19/18 for acute abdominal pain. CT showed right retroperitoneal fluid collection. She had hemodialysis after CT with IV contrast today. Plan: Continue hemodialysis on Tuesday, Tuesday, Tuesday. Status: Chronic Priority: Medium
[2018-05-19] MEDS ORDERED: oxyCODONE HCL 5 MG TABLET PO PRN (20:40)
[2018-05-19] MEDS ORDERED: diphenhydrAMINE 25 MG CAPSULE PO PRN (20:40)
[2018-05-19] MEDS ORDERED: DEXTROSE 31 GM ORAL.SUSP PO PRN (20:40)
[2018-05-19] MEDS ORDERED: NALOXONE HCL 0.4 MG/ML VIAL IV PRN (20:40)
[2018-05-19] MEDS ORDERED: ALBUTEROL SULFATE 2.5 MG/3 ML NEBULIZER NEB PRN (20:40)
[2018-05-19] MEDS ORDERED: DEXTROSE 50% 50 ML VIAL IV PRN (20:40)
[2018-05-19] MEDS: INSULIN LISPRO 1 UNIT/0.01 ML UNIT SQ SCH (21:15)
[2018-05-19] MEDS: HYDROmorphone 2 MG/ML VIAL IV PRN (21:30)
--- NOTE | 2018-05-19 22:04 | Internal Med History&Physical ---
Medical - H&P: HPI Patient information: Note initiated : 05/19/18 at 10:00 pm Service Date, if different from initiated Date: [] Patient: Carlene Maddox a 48 y/o F admitted on 05/19/18 for Abd pain, vomiting. Chief Complaint: [] History of present illness: Ms. Maddox is a 48 year old F with history of diabetes with neuropathy and retinopathy, end-stage renal disease on dialysis presented to the emergency room today for evaluation of right-sided abdominal pain that started at 2 AM this morning. The patient was admitted to this hospital around [facility] for pancreatitis. The patient notes that she has pain in the right side of the abdomen sharp waxing and waning but quite severe, worse with coughing moving around relieved with some pain medications. This is associated with nausea and vomiting. She also has some shortness of breath and she has chronic cough. The patient denies any trauma to her abdomen. She does sleep with the dog. She does not take any blood thinners. The patient does have history of chronic nausea vomiting however at this time feels that the nausea vomiting is associated because of the severe pain in her abdomen. The patient denies any chest pain shortness of breath she does have some cough she does have a headache, she denies any diarrhea any acute joint pains. She was seen in the emergency room earlier today, during that time she underwent ultrasound of the abdomen as well as CT of the abdomen with contrast. Ultrasound of the abdomen was unremarkable except for some sludge in the gallbladder. CT abdomen and pelvis however showed a 12 cm right sided retroperitoneal hemorrhage. The patient had a CT scan done approximately a month ago which showed a renal cyst in the same region, I think at this time the patient had bleeding into the renal cyst. The patient's case was reviewed by Dr. Martell who did not feel any aggressive intervention at this point is necessary however should her condition worsen or the pain becomes unbearable then might be a drain that could be placed. Nephrology saw the patient in the emergency room and arrange for dialysis after CT scan of the abdomen with contrast. After dialysis the patient continued to have abdominal pain nausea and unable to tolerate p.o. diet she is therefore admitted to the hospital for further management. Vitals in the emergency room the patient had a low-grade temperature of 99.6 heart rate 93 blood pressure 113/54 saturating 96% on room air. WBC count was 9.1 hemoglobin 10 platelets 34 INR 1.1 lipase 26 sodium 134 potassium 4.0 bicarbonate 27 creatinine 6 BUN 28 glucose 176. All systems: reviewed and no additional remarkable complaints except as stated ( as per HPI rest neg) Medical - H&P: H Medical history: Medical History (Last Updated 04/21/18 @ 07:53 by Antonio Lam MD) Acute whiplash injury (Acute) Bronchitis (Acute) Hypertensive urgency (Acute) Nausea & vomiting (Acute) Anemia (Acute) Leukocytosis (Acute) Hypothyroidism (Chronic) Vomiting (Chronic) Chest pain (Acute) Atypical chest pain (Acute) Obesity (Chronic) Secondary hyperparathyroidism of renal origin (Chronic) Proteinuria (Chronic) Vitamin D deficiency (Acute) Retinopathy, diabetic, background (Acute) Rash (Acute) Insomnia (Acute) Hypertension, essential, benign (Acute) Hyperlipidemia (Acute) Edema leg (Acute) 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) Diabetes mellitus type II, uncontrolled (Acute) CHF (congestive heart failure) (Acute) Chest pain (Acute) Surgical history: Past Surgical History Hx of abdominal surgery (Acute) H/O angioplasty (Acute) Family history: reviewed and not pertinent Medical - H&P: Meds Home Medications Medication Instructions Recorded Confirmed Type sucroferric oxyhydroxide 500 mg 1,000 mg PO TID #180 tab 12/05/17 05/19/18 Rx chewable tablet Carvedilol [Coreg] 25 mg PO BIDCC #60 tab 04/19/18 05/19/18 Rx amLODIPine [Norvasc] 5 mg PO DAILY #30 tab 04/19/18 05/19/18 Rx Ondansetron HCl [Zofran ODT] 4 mg PO Q6H PRN #20 tab 04/20/18 05/19/18 Rx HYDROmorphone HCL [Dilaudid] 2 mg PO Q4-6HP PRN #20 tab 05/19/18 05/19/18 Rx diphenhydrAMINE [Benadryl] 25 mg PO Q4-6HP PRN 05/19/18 05/19/18 History Allergies Allergy/AdvReac Type Severity Reaction Status Date / Time codeine AdvReac Intermediate Vomiting Verified 05/19/18 18:56 diazepam [From Valium] AdvReac Other Verified 05/19/18 18:56 Medical - H&P: Exam - Constitutional Vitals: Temp Pulse Resp BP Pulse Ox 99.6 F H 93 H 22 113/54 96 05/19/18 20:31 05/19/18 20:31 05/19/18 20:31 05/19/18 20:31 05/19/18 20:31 Exam: Constitutional; Afebrile, cooperative, alert, not in distress. Eyes- No icterus, , No periorbital swelling Ears- Ext ear normal, hearing normal to conversation. Neck- Midline trachea, supple Respiratory system: Air Entry equal on both sides, No crackles or wheezing, no rhonchi. CVS- Rate rhythm regular, S1,S2 heard, no gallop, no rub. 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 Medical - H&P: A/P - Narrative A/P Narrative: a/P Retroperitoneal bleed/ Hemorrahge in renal cyst- conservative management,- Monitor h/h, transfuse if needed. If pt symptoms do not improve will try to relive compression by IR guided drainage. Nausea/Vomiting- does have h/o same, but could also be from her abdominal pain, symptomatic management for now ESRD on HD, Dr Lam following DM- ssi insulin for glucose controll HTN/HLD/Hypothryodism- Stable condition, resume home meds anemia- hb stable due to anemia of chr disease. dvt scd Full code Carb consistent, renal diet. Social History - Tobacco smoking status: Former smoker - Alcohol alcohol intake frequency: holiday/special occasion only
[2018-05-19] MEDS: PANTOPRAZOLE 40 MG VIAL IV SCH (23:11)
[2018-05-19] MEDS: 0.9 % SODIUM CHLORIDE 10 ML SYRINGE IV SCH (23:11)
[2018-05-20] MEDS: HYDROmorphone 2 MG/ML VIAL IV PRN ×5 (00:56→15:46)
[2018-05-20] MEDS: ONDANSETRON 4 MG/2 ML VIAL IV PRN ×4 (00:56→23:33)
[2018-05-20] MEDS: ACETAMINOPHEN 325 MG TABLET PO PRN ×3 (04:13→22:27)
[2018-05-20] MEDS: 0.9 % SODIUM CHLORIDE 10 ML SYRINGE IV SCH ×4 (05:29→23:36)
[2018-05-20 05:54] LABS: Basophils # (Auto) 0.1 K/mcL (0.0-0.3); Basophils % (Auto) 0.7 % (0.0-2.0); Eosinophils # (Auto) 0.9 K/mcL (0.0-0.7); Eosinophils % (Auto) 9.3 % (0.0-7.0); Lymphocytes # (Auto) 0.7 K/mcL (1.5-4.8); Lymphocytes % (Auto) 6.7 % (15.5-49.0); Mean Cell Volume 91.9 fL (80.0-100.0); Mean Corpuscular Hemoglobin 31.2 pg (26.0-34.0); Monocytes # (Auto) 0.8 K/mcL (0.1-0.9); Monocytes % (Auto) 8.3 % (1.0-12.0); Platelet Count 231 K/mcL (140-440); RBC 3.02 M/mcL (4.00-5.20); Red Cell Distribution Width 13.9 % (11.5-14.5)
[2018-05-20 06:41] LABS: ALT/SGPT 5 U/l (0-40); Albumin 3.4 gm/dL (3.2-5.2); Alkaline Phosphatase 75 U/L (39-117); Bilirubin,Direct 0.2 mg/dL (0.0-0.3); Blood Urea Nitrogen 18 mg/dl (6-20); Gamma Glutamyl Transpeptidase 11 U/L (5-36); Uric Acid 2.1 mg/dL (2.5-8.0)
--- NOTE | 2018-05-20 07:31 | XRay Report ---
CLINICAL INFORMATION: fever COMPARISON: 04/25/2016 FINDINGS: The heart is mildly enlarged - increased from prior x-ray. Mild mediastinal widening also noted. Pulmonary vessels are mildly distended. No definite edema. No infiltrates - lungs are clear. No effusions IMPRESSION: Mild CHF or volume overload Interpreted and Authenticated by: Marc Rizzo 05/20/18
[2018-05-20] MEDS: PANTOPRAZOLE 40 MG VIAL IV SCH ×2 (07:58→16:56)
[2018-05-20] MEDS: INSULIN LISPRO 1 UNIT/0.01 ML UNIT SQ SCH ×4 (07:58→20:36)
[2018-05-20] MEDS: CARVEDILOL 12.5 MG TABLET PO SCH ×2 (07:59→16:56)
[2018-05-20] MEDS: Sucroferric Oxyhydroxide [Velphoro] 1,000 MG PO SCH ×3 (08:08→16:57)
--- NOTE | 2018-05-20 08:21 | Nephrology Progress Note ---
Subjective Patient information: Note initiated : 05/20/18 at 8:19 am Patient: Carlene Maddox 48 y/o F admitted on 05/19/18 for Abd pain, vomiting. Chief Complaint: Right lower quadrant pain Principal diagnosis: Right lower quadrant pain Interval history: No significant improvement of pain control Pertinent ROS: Right lower quadrant pain Mild nausea No chest pain No shortness of breath No edema Objective - Vital Signs Vital signs: Vital Signs Temp Pulse Pulse Resp BP BP Pulse Ox 05/20/18 06:35 98.2 F 16 127/60 90 05/20/18 04:58 101.3 F H 05/20/18 04:13 101.6 F H 05/20/18 04:00 101.6 F H 94 H 14 133/61 90 05/20/18 00:00 99.4 F H 86 16 125/63 90 05/19/18 21:15 98.9 F 85 18 122/60 92 05/19/18 20:31 99.6 F H 93 H 22 113/54 96 05/19/18 19:03 99.6 F H 93 H 22 113/54 96 Intake and Output 05/19/18 05/20/18 05/20/18 21:59 05:59 13:59 Intake Total 200 / 200 Balance 200 / 200 Intake: Oral 200 / 200 Other: Urine Appearance Clear Urine Color Dark Yellow Urine Odor Normal # Voids 1 # Emeses 1 Weight 178 lb Intake & Output: Intake & Output 05/19/18 05/20/18 05/20/18 21:59 05:59 13:59 Intake Total 200 / 200 Balance 200 / 200 Weight 178 lb Intake: Oral 200 / 200 Other: Urine Appearance Clear Urine Color Dark Yellow Urine Odor Normal # Voids 1 # Emeses 1 - General Appearance General appearance: appears started age, anxious EENT: mucous membranes moist Neck: supple Respiratory: clear Cardiology: no edema Gastrointestinal: tenderness Integumentary: no rash, warm and dry Neurologic: no focal deficit, alert and oriented x3 Musculoskeletal: no deformities Psychiatric: mood/affect appropriate, cooperative - Lab 05/20/18 04:20 05/20/18 04:20 Most recent lab results Calcium 8.7 mg/dl (8.6-10.4) 05/20/18 04:20 Phosphorus 3.2 mg/dL (2.7-4.5) 05/20/18 04:20 Magnesium 1.8 mg/dL (1.6-2.5) 05/20/18 04:20 Assessment and Plan (1) ESRD (end stage renal disease) on dialysis Carlene Maddox is a 48-year-old female with end-stage renal disease on chronic hemodialysis (through right arm AV fistula, at [facility], on MWF, followed by Dr. De Guzman), secondary hyperparathyroidism of renal origin, chronic anemia due to kidney disease, coronary artery disease, diabetes mellitus type 2, hypertension , admitted on 05/19/18 for acute abdominal pain. CT showed right retroperitoneal fluid collection. Progress: Last hemodialysis on 05/19/[address] with IV contrast. Plan: Continue hemodialysis on Tuesday, Tuesday, Tuesday. Status: Chronic Priority: Medium (2) Anemia in ESRD (end-stage renal disease) Status: Chronic Priority: Medium (3) Hyponatremia Status: Chronic Priority: Medium
[2018-05-20] MEDS ORDERED: amLODIPine 5 MG TABLET PO SCH (09:00)
[2018-05-20] MEDS: HYDROmorphone 2 MG TABLET PO PRN ×3 (11:35→22:27)
--- NOTE | 2018-05-20 13:01 | Internal Med Progress Note ---
Medical - PN: Subj Patient information: Note initiated : 05/20/18 at 12:59 pm Service Date, if different from initiated Date: [] Patient: Carlene Maddox a 48 y/o F admitted on 05/19/18 for Abd pain, vomiting. Chief Complaint: [] Interval history: Ms. Maddox is a 48 year old F with history of diabetes with neuropathy and retinopathy, end-stage renal disease on dialysis presented to the emergency room today for evaluation of right-sided abdominal pain that started at 2 AM this morning. The patient was admitted to this hospital around [facility] for pancreatitis. The patient notes that she has pain in the right side of the abdomen sharp waxing and waning but quite severe, worse with coughing moving around relieved with some pain medications. This is associated with nausea and vomiting. She also has some shortness of breath and she has chronic cough. The patient denies any trauma to her abdomen. She does sleep with the dog. She does not take any blood thinners. The patient does have history of chronic nausea vomiting however at this time feels that the nausea vomiting is associated because of the severe pain in her abdomen. The patient denies any chest pain shortness of breath she does have some cough she does have a headache, she denies any diarrhea any acute joint pains. She was seen in the emergency room earlier today, during that time she underwent ultrasound of the abdomen as well as CT of the abdomen with contrast. Ultrasound of the abdomen was unremarkable except for some sludge in the gallbladder. CT abdomen and pelvis however showed a 12 cm right sided retroperitoneal hemorrhage. The patient had a CT scan done approximately a month ago which showed a renal cyst in the same region, I think at this time the patient had bleeding into the renal cyst. The patient's case was reviewed by Dr. Martell who did not feel any aggressive intervention at this point is necessary however should her condition worsen or the pain becomes unbearable then might be a drain that could be placed. Nephrology saw the patient in the emergency room and arrange for dialysis after CT scan of the abdomen with contrast. After dialysis the patient continued to have abdominal pain nausea and unable to tolerate p.o. diet she is therefore admitted to the hospital for further management. Vitals in the emergency room the patient had a low-grade temperature of 99.6 heart rate 93 blood pressure 113/54 saturating 96% on room air. WBC count was 9.1 hemoglobin 10 platelets 34 INR 1.1 lipase 26 sodium 134 potassium 4.0 bicarbonate 27 creatinine 6 BUN 28 glucose 176. 05/20 Pt seen examined, no new complaints or concerns had breakfast this AM, but still nausea present Abdominal pain unchanged from yesterday, still very painful to move. Will repeat CT without contrast H/H stable Pertinent ROS: Denies headache, dizziness Denies chest pain, palpitations Denies cough or shortness of breath present abdominal pain, present nausea no vomiting. - Constitutional Vitals: Vital Signs Temp Pulse Resp BP Pulse Ox 99.2 F H 94 H 18 150/69 94 05/20/18 10:59 05/20/18 04:00 05/20/18 10:59 05/20/18 10:59 05/20/18 10:59 Period Temp Pulse Resp BP Sys/Shin Pulse Ox Last 24 Hr 98.2 F-101.6 F 85-94 14-22 113-150/54-69 90-96 Intake and Output 05/19/18 05/20/18 05/20/18 21:59 05:59 13:59 Intake Total 200 / 200 Balance 200 / 200 Weight 178 lb Intake & Output: Intake & Output 05/19/18 05/20/18 05/20/18 21:59 05:59 13:59 Intake Total 200 / 200 Balance 200 / 200 Weight 178 lb Intake: Oral 200 / 200 Other: Urine Appearance Clear Urine Color Dark Yellow Urine Odor Normal # Voids 1 # Emeses 1 Exam: Constitutional; Afebrile, cooperative, alert, not in distress. Respiratory system: Air Entry equal on both sides, No crackles or wheezing, no rhonchi. CVS- Rate rhythm regular, S1,S2 heard, no gallop, no rub. Abdomen- soft , large ventral hernia, right sided mass and tenderness unchanged. 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 Medical - PN: Obj Da - Labs CBC & Chem 7: 05/20/18 04:20 05/20/18 04:20 Labs: Abnormal Lab Results 05/20/18 05/20/18 04:20 04:20 RBC 3.02 L Hgb 9.4 L Hct 27.7 L Lymph % (Auto) 6.7 L Eos % (Auto) 9.3 H Lymph # (Auto) 0.7 L Eos # (Auto) 0.9 H Sodium 130 L Chloride 91 L Creatinine 3.8 H Glucose 134 H Uric Acid 2.1 L Meds: Medications Acetaminophen (Tylenol) 650 mg PO Q6HP PRN PRN Reason: PAIN/FEVER > 101 Last Admin: 05/20/18 04:13 Dose: 650 mg Albuterol Sulfate (Ventolin) 2.5 mg NEB Q2HP PRN PRN Reason: Shortness Of Breath Amlodipine Besylate (Norvasc) 5 mg PO DAILY [facility] Last Admin: 05/20/18 10:27 Dose: 5 mg Carvedilol (Coreg) 25 mg PO BIDCC [facility] Last Admin: 05/20/18 07:59 Dose: 25 mg Dextrose (Dextrose 50%) 0 ml IV UD PRN PRN Reason: Hypoglycemia Diagnostic Test (Pha) (Accu-Chek) 1 each FS [facility] Last Admin: 05/20/18 11:35 Dose: 1 each Diphenhydramine HCl (Benadryl) 25 mg PO Q4-6HP PRN PRN Reason: Allergy Symptoms Glucose (Insta-Glucose) 15 gm PO PRN PRN PRN Reason: Hypoglycemia Hydromorphone HCl (Dilaudid) 0.5 mg IV Q2HP PRN PRN Reason: PAIN LEVEL > 6 Last Admin: 05/20/18 07:57 Dose: 0.5 mg Hydromorphone HCl (Dilaudid) 2 mg PO Q4-6HP PRN PRN Reason: Pain Last Admin: 05/20/18 11:35 Dose: 2 mg Insulin Human Lispro (Humalog) 0 unit SQ [facility]; Protocol Last Admin: 05/20/18 11:35 Dose: 3 units Naloxone HCl (Narcan) 0.1 mg IV Q2MIN PRN PRN Reason: Opiate Reversal Ondansetron HCl (Zofran) 4 mg IV Q6HP PRN PRN Reason: Nausea And Vomiting Last Admin: 05/20/18 07:56 Dose: 4 mg Pantoprazole Sodium (Protonix) 40 mg IV BIDAC [facility] Last Admin: 05/20/18 07:58 Dose: 40 mg Sucroferric Oxyhydroxide [ Velphoro] 1,000 Mg 1 dose PO TIDCC [facility] Last Admin: 05/20/18 08:08 Dose: Not Given Sodium Chloride (Saline Flush) 10 ml IV Q8 [facility] Last Admin: 05/20/18 05:29 Dose: 10 ml Medical - PN: A/P - Time Spent With Patient Total time spent is greater than 50% in coordination of care (as documented) at patient's floor/unit and/or counseling patient: - Narrative A/P Narrative: A/P Retroperitoneal bleed/ Hemorrahge in renal cyst- conservative management,- Monitor h/h, transfuse if needed. repeat CT today, if not improving or worsening will see if we can drain Nausea/Vomiting-, vomiting improved, still has nausea, does have h/o same, but could also be from her abdominal pain, symptomatic management for now ESRD on HD, Dr Lam following DM- ssi insulin for glucose control HTN/HLD/Hypothyroidism- Stable condition, resume home meds anemia- hb stable due to anemia of chr disease. dvt scd Full code Carb consistent, renal diet. Medical - PN: Qual - VTE Deep Vein Thrombosis/Pulmonary Embolism Present on Admission: No
--- NOTE | 2018-05-20 14:17 | Cat Scan Report ---
CLINICAL INFORMATION: Follow right retroperitoneal hematoma COMPARISON: Abdomen and pelvic CT one day prior - 05/19/2018 TECHNIQUE: 0.625 mm helical slices were obtained from the mid heart through the subtrochanteric regions. Following reconstruction, 2.5 mm sagittal, coronal and axial reformatted images were processed and reviewed at bone and soft tissue windows.The exam was performed using radiation dose optimization techniques including, but not limited to, automated exposure control, adjustment of the mA and/or kV according to patient size and use of iterative reconstruction technique. FINDINGS: Lung bases show only minor bibasilar atelectasis/scarring. No effusion. Visualized heart is mildly enlarged. Images through the abdomen show the noncontrasted liver, gallbladder and bile ducts, both adrenal glands, spleen, pancreas and aorta to be normal. Mild atrophy of both kidneys again noted: the left is 9.5 cm in length and the right is 9.5 cm in length. Moderate atherosclerotic calcific plaque seen in all renal arteries including segmental arteries. Images through the pelvis show anteflexed normal-appearing uterus. 19 mm simple cyst on the left ovary again noted. The large hematoma in the inferior right perinephric space shows a slight increase in by - now measuring 12.5 x 7.7 x 9.5 cm. In addition, there is modestly more high attenuation hemorrhage within the central aspect of the lesion within compared yesterday. Moderate edema scattered throughout the adjacent right retroperitoneum is little changed. Multiple ventral wall hernias, previously well described, are unchanged. No evidence of strangulation/ischemia or bowel obstruction. IMPRESSION: 12.5 cm retroperitoneal hematoma in the inferior right perinephric space shows a slight increase in size compared to the CT over 24 hours ago. Findings are compatible with slow, progressive hemorrhage. Moderate retroperitoneal edema, surrounding this region, also shows a slight increase. Multiple ventral hernias, previously well described, unchanged. No evidence of incarceration or bowel obstruction Mild bilateral renal atrophy - again noted Interpreted and Authenticated by: Marc Rizzo 05/20/18
[2018-05-21] MEDS ORDERED: 0.9 % SODIUM CHLORIDE 500 ML IV ONE (01:01)
[2018-05-21] MEDS ORDERED: 0.9 % SODIUM CHLORIDE 250 ML IV SCH ×2 (02:00→02:36)
--- NOTE | 2018-05-21 02:12 | Event Note ---
Called to assess pt with low bp, otherwise asymptomatic pt admitted for retroperitoneal/ hemorrhage in the renal cyst The patient has no new complaints, pain in the cyst persistent, I had discussed a needle aspiration with radiology today, but it was felt it would not be appropriate as it would likely releive any tamponade effect Patient had repeat blood drawn and her hb dropped to 7.1, was 9.4 this AM, blood pressure too was low. She will be move to tele bed, and status changed from obs to inpatient. AM labs drawn. To be transfused 2 units of blood Selected Entries 05/21/18 00:54 Temperature 98.4 F Pulse Rate [Monitor Reading] 75 Respiratory Rate 16 Blood Pressure [Left Arm] 87/50 Blood Pressure Mean [Left Arm] 62 Pulse Oximetry (%) 97 Oxygen Delivery Method Nasal Cannula Oxygen Flow Rate (L/min) 2 Laboratory Tests 05/19/18 05/20/18 05/21/18 10:07 04:20 01:05 Hgb 10.0 L 9.4 L 7.1 L
[2018-05-21] MEDS ORDERED: DEXTROSE 31 GM ORAL.SUSP PO PRN (02:36)
[2018-05-21] MEDS ORDERED: diphenhydrAMINE 25 MG CAPSULE PO PRN (02:36)
[2018-05-21] MEDS ORDERED: ALBUTEROL SULFATE 2.5 MG/3 ML NEBULIZER NEB PRN (02:36)
[2018-05-21] MEDS ORDERED: NALOXONE HCL 0.4 MG/ML VIAL IV PRN (02:36)
[2018-05-21] MEDS ORDERED: DEXTROSE 50% 50 ML VIAL IV PRN (02:36)
[2018-05-21] MEDS ORDERED: ACETAMINOPHEN 325 MG TABLET PO PRN (02:36)
[2018-05-21] MEDS ORDERED: HYDROmorphone 2 MG/ML VIAL IV PRN (02:36)
[2018-05-21] MEDS ORDERED: ONDANSETRON 4 MG/2 ML VIAL IV PRN (02:36)
[2018-05-21 02:55] LABS: Basophils # (Auto) 0 K/mcL (0.0-0.3); Basophils % (Auto) 0.3 % (0.0-2.0); Eosinophils # (Auto) 0.9 K/mcL (0.0-0.7); Eosinophils % (Auto) 9.4 % (0.0-7.0); Granulocytes % (Auto) 73.8 % (38.0-78.0); Lymphocytes # (Auto) 0.8 K/mcL (1.5-4.8); Lymphocytes % (Auto) 8.9 % (15.5-49.0); Mean Cell Volume 91.9 fL (80.0-100.0); Mean Corpuscular HGB Conc 32.9 g/dL (31.0-36.0); Mean Corpuscular Hemoglobin 30.3 pg (26.0-34.0); Monocytes # (Auto) 0.7 K/mcL (0.1-0.9); Monocytes % (Auto) 7.6 % (1.0-12.0); Platelet Count 192 K/mcL (140-440); RBC 2.42 M/mcL (4.00-5.20); Red Cell Distribution Width 13.9 % (11.5-14.5)
[2018-05-21] MEDS ORDERED: HYDROmorphone 2 MG/ML VIAL ONE (02:56)
[2018-05-21] MEDS ORDERED: HYDROmorphone 2 MG TABLET ONE (02:57)
[2018-05-21 04:36] LABS: ALT/SGPT < 5 U/l (0-40); Alkaline Phosphatase 63 U/L (39-117); Bilirubin,Direct 0.2 mg/dL (0.0-0.3); Blood Urea Nitrogen 37 mg/dl (6-20); Gamma Glutamyl Transpeptidase 9 U/L (5-36)
[2018-05-21] MEDS: 0.9 % SODIUM CHLORIDE 10 ML SYRINGE IV SCH ×2 (05:21→14:09)
[2018-05-21] MEDS ORDERED: PANTOPRAZOLE 40 MG VIAL IV ONE (06:49)
[2018-05-21] MEDS ORDERED: ACETAMINOPHEN 325 MG TABLET PO ONE (06:50)
[2018-05-21] MEDS ORDERED: PANTOPRAZOLE 40 MG VIAL IV SCH (07:30)
[2018-05-21] MEDS: INSULIN LISPRO 1 UNIT/0.01 ML UNIT SQ SCH ×2 (07:44→13:43)
--- NOTE | 2018-05-21 08:18 | Nephrology Progress Note ---
Subjective Patient information: Note initiated : 05/21/18 at 8:16 am Patient: Carlene Maddox 48 y/o F admitted on 05/19/18 for Abd pain, vomiting. Chief Complaint: Right lower quadrant pain Principal diagnosis: Right lower quadrant pain Interval history: Transferred to ICU for hypotension and suspected bleeding Pertinent ROS: Right lower quadrant pain, moved to the left side as well this morning Mild nausea No chest pain No shortness of breath No edema Objective - Vital Signs Vital signs: Vital Signs Temp Pulse Pulse Resp BP BP Pulse Ox 05/21/18 06:43 98.4 F 16 110/59 98 05/21/18 04:01 75 102/54 98 05/21/18 03:31 82 100/60 98 05/21/18 03:01 77 116/59 92 05/21/18 02:54 99.9 F H 81 18 123/64 93 05/21/18 00:54 98.4 F 75 16 87/50 97 05/20/18 23:25 94 05/20/18 23:20 98.8 F 78 12 93/56 86 L 05/20/18 23:12 98.8 F 05/20/18 22:27 100.2 F H 05/20/18 21:58 100.2 F H 05/20/18 19:10 98.8 F 62 16 100/57 94 05/20/18 16:32 98.9 F 05/20/18 15:53 101.1 F H 20 114/62 92 05/20/18 15:47 101.3 F H 05/20/18 10:59 99.2 F H 18 150/69 94 Intake and Output 05/20/18 05/21/18 05/21/18 21:59 05:59 13:59 Intake Total 1000 / 1000 800 / 800 Output Total 50 / 50 Balance 950 / 950 800 / 800 Intake: IV 500 / 500 Sodium Chloride 0.9% 500 ml @ 500 / 500 Wide Open IV BOLUS ONE Rx#: [id number] Oral 1000 / 1000 300 / 300 Output: Void Amount 50 / 50 Other: Meal 2 packets thi peterson Percent of Meal Consumed 100% Weight 185 lb 3.2 oz Intake & Output: Intake & Output 05/20/18 05/21/18 05/21/18 21:59 05:59 13:59 Intake Total 1000 / 1000 800 / 800 Output Total 50 / 50 Balance 950 / 950 800 / 800 Weight 185 lb 3.2 oz Intake: IV 500 / 500 Sodium Chloride 0.9% 500 ml @ 500 / 500 Wide Open IV BOLUS ONE Rx#: [id number] Oral 1000 / 1000 300 / 300 Output: Void Amount 50 / 50 Other: Meal 2 packets mauro jennifer, jello Percent of Meal Consumed 100% - General Appearance General appearance: appears started age EENT: mucous membranes moist Neck: supple Respiratory: clear Cardiology: edema Gastrointestinal: tenderness Integumentary: no rash Neurologic: no 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 De Guzman), secondary hyperparathyroidism of renal origin, chronic anemia due to kidney disease, coronary artery disease, diabetes mellitus type 2, hypertension , admitted on 05/19/18 for acute abdominal pain. CT showed right retroperitoneal fluid collection. Progress: Last hemodialysis on 05/19/[address] with IV contrast. Plan: Continue hemodialysis on Tuesday, Tuesday, Tuesday. Status: Chronic Priority: Medium (2) Acute blood loss anemia Acute blood loss anemia due retroperitoneal bleeding 2 units PRBC being transfused May need transfer for embolization by IR Status: Acute Priority: High (3) Anemia in ESRD (end-stage renal disease) Status: Chronic Priority: Medium (4) Hyponatremia Status: Chronic Priority: Medium
[2018-05-21] MEDS: HYDROmorphone 2 MG TABLET PO PRN ×2 (09:01→14:06)
[2018-05-21] MEDS: SUCROFERRIC OXYHYDROXIDE 1000 MG PO SCH ×2 (09:02→13:43)
--- NOTE | 2018-05-21 13:17 | Transfer Summary ---
Transfer Discharge Sum: Prov Patient information: Note initiated : 05/21/18 at 1:15 pm Service Date, if different from initiated Date: [] Patient: Carlene Maddox 48 y/o F admitted on 05/19/18 for Abd pain, vomiting. Chief Complaint: [] Date of admission: 05/19/18 20:30 Discharge Date: 05/21/18 Primary care physician: Padmini Naik Consults: 05/19/18 Consult to Physician [CONS] Stat Comment: Consulting Provider: Shira Foley Reason For Exam: Physician to Consult 05/19/18 20:44 Consult to Physician [CONS] Routine Comment: Consulting Provider: Antonio Lam Reason For Exam: Physician to Consult Transfer Discharge Sum: Med - Medications Active and Home Medications: Home Medications sucroferric oxyhydroxide 500 mg chewable tablet 1,000 mg PO TID #180 tab [Rx Confirmed 05/19/18] Carvedilol [Coreg] 25 mg PO BIDCC #60 tab 04/19/18 [Rx Confirmed 05/19/18] amLODIPine [Norvasc] 5 mg PO DAILY #30 tab 04/19/18 [Rx Confirmed 05/19/18] Ondansetron HCl [Zofran ODT] 4 mg PO Q6H PRN #20 tab 04/20/18 [Rx Confirmed ] HYDROmorphone HCL [Dilaudid] 2 mg PO Q4-6HP PRN #20 tab 05/19/18 [Rx Confirmed 05/19/18] diphenhydrAMINE [Benadryl] 25 mg PO Q4-6HP PRN 05/19/18 [History Confirmed 05/19] Active Medications Acetaminophen (Tylenol) 650 mg PO Q6HP PRN PRN Reason: PAIN/FEVER > 101 Last Admin: 05/21/18 06:55 Dose: 650 mg Albuterol Sulfate (Ventolin) 2.5 mg NEB Q2HP PRN PRN Reason: Shortness Of Breath Dextrose (Dextrose 50%) 0 ml IV UD PRN PRN Reason: Hypoglycemia Diagnostic Test (Pha) (Accu-Chek) 1 each FS ACHS SAROJ Last Admin: 05/21/18 11:21 Dose: 1 each Diphenhydramine HCl (Benadryl) 25 mg PO Q4-6HP PRN PRN Reason: Allergy Symptoms Glucose (Insta-Glucose) 15 gm PO PRN PRN PRN Reason: Hypoglycemia Hydromorphone HCl (Dilaudid) 0.5 mg IV Q2HP PRN PRN Reason: PAIN LEVEL > 6 Last Admin: 05/21/18 11:18 Dose: 0.5 mg Hydromorphone HCl (Dilaudid) 2 mg PO Q4-6HP PRN PRN Reason: Pain Last Admin: 05/21/18 09:01 Dose: 2 mg Sodium Chloride (Sodium Chloride 0.9%) 250 mls @ 20 mls/hr IV .[id number] [facility] Stop: 05/21/18 14:29 Last Admin: 05/21/18 08:15 Dose: 20 mls/hr Insulin Human Lispro (Humalog) 0 unit SQ ACHS [facility]; Protocol Last Admin: 05/21/18 07:44 Dose: 1 unit Naloxone HCl (Narcan) 0.1 mg IV Q2MIN PRN PRN Reason: Opiate Reversal Ondansetron HCl (Zofran) 4 mg IV Q6HP PRN PRN Reason: Nausea And Vomiting Last Admin: 05/21/18 07:43 Dose: 4 mg Pantoprazole Sodium (Protonix) 40 mg IV BIDAC [facility] Last Admin: 05/21/18 06:59 Dose: 40 mg Sucroferric Oxyhydroxide [ Velphoro] 1,000 Mg Tab 1 dose PO TIDCC [facility] Last Admin: 05/21/18 09:02 Dose: Not Given Sodium Chloride (Saline Flush) 10 ml IV Q8 [facility] Last Admin: 05/21/18 05:21 Dose: 10 ml Transfer Discharge Sum: Hosp Hospital course: Ms. Maddox is a 48 year old F Ms. Maddox is a 48 year old F with history of diabetes with neuropathy and retinopathy, end-stage renal disease on dialysis presented to the emergency room today for evaluation of right-sided abdominal pain that started at 2 AM this morning. The patient was admitted to this hospital around [facility] for pancreatitis. The patient notes that she has pain in the right side of the abdomen sharp waxing and waning but quite severe, worse with coughing moving around relieved with some pain medications. This is associated with nausea and vomiting. She also has some shortness of breath and she has chronic cough. The patient denies any trauma to her abdomen. She does sleep with the dog. She does not take any blood thinners. The patient does have history of chronic nausea vomiting however at this time feels that the nausea vomiting is associated because of the severe pain in her abdomen. The patient denies any chest pain shortness of breath she does have some cough she does have a headache, she denies any diarrhea any acute joint pains. She was seen in the emergency room earlier today, during that time she underwent ultrasound of the abdomen as well as CT of the abdomen with contrast. Ultrasound of the abdomen was unremarkable except for some sludge in the gallbladder. CT abdomen and pelvis however showed a 12 cm right sided retroperitoneal hemorrhage. The patient had a CT scan done approximately a month ago which showed a renal cyst in the same region, I think at this time the patient had bleeding into the renal cyst. The patient's case was reviewed by Dr. Martell who did not feel any aggressive intervention at this point is necessary however should her condition worsen or the pain becomes unbearable then might be a drain that could be placed. Nephrology saw the patient in the emergency room and arrange for dialysis after CT scan of the abdomen with contrast. After dialysis the patient continued to have abdominal pain nausea and unable to tolerate p.o. diet she is therefore admitted to the hospital for further management. Vitals in the emergency room the patient had a low-grade temperature of 99.6 heart rate 93 blood pressure 113/54 saturating 96% on room air. WBC count was 9.1 hemoglobin 10 platelets 34 INR 1.1 lipase 26 sodium 134 potassium 4.0 bicarbonate 27 creatinine 6 BUN 28 glucose 176. 05/20 Pt seen examined, no new complaints or concerns had breakfast this AM, but still nausea present Abdominal pain unchanged from yesterday, still very painful to move. Will repeat CT without contrast H/H stable 05/21 Patient had repeat blood drawn and her hb dropped to 7.1, was 9.4 this AM, blood pressure too was low. She will be move to tele bed, and status changed from obs to inpatient. AM labs drawn. To be transfused 2 units of blood - Given lack of IR and surgical support the case was discussed with capay for transfer and graciously accepted by Dr. Cesar. - Time Spent with Patient Total time spent providing and/or coordinating transfer services: Greater than 30 minutes Transfer Discharge Sum: Exam - Constitutional Vitals: Vital Signs Temp Pulse Pulse Resp BP BP Pulse Ox 05/21/18 12:00 97.1 F 18 151/63 100 05/21/18 06:43 98.4 F 16 110/59 98 05/21/18 04:01 75 102/54 98 05/21/18 03:31 82 100/60 98 05/21/18 03:01 77 116/59 92 05/21/18 02:54 99.9 F H 81 18 123/64 93 05/21/18 00:54 98.4 F 75 16 87/50 97 05/20/18 23:25 94 05/20/18 23:20 98.8 F 78 12 93/56 86 L 05/20/18 23:12 98.8 F 05/20/18 22:27 100.2 F H 05/20/18 21:58 100.2 F H 05/20/18 19:10 98.8 F 62 16 100/57 94 05/20/18 16:32 98.9 F 05/20/18 15:53 101.1 F H 20 114/62 92 05/20/18 15:47 101.3 F H Intake and Output 05/20/18 05/21/18 05/21/18 21:59 05:59 13:59 Intake Total 1000 / 1000 1140 / 1140 240 / 240 Output Total 50 / 50 Balance 950 / 950 1140 / 1140 240 / 240 Intake: IV 500 / 500 Sodium Chloride 0.9% 500 ml @ 500 / 500 Wide Open IV BOLUS ONE Rx#: [id number] Oral 1000 / 1000 300 / 300 240 / 240 Blood Product 340 / 340 Output: Void Amount 50 / 50 Other: Meal 2 packets thi peterson Breakfast Percent of Meal Consumed 100% 100% Weight 84.005 kg Transfer Discharge Sum: Data Procedures and tests throughout hospitalization: Pending Orders 05/19/18 Consult to Physician [CONS] Stat 05/19/18 19:26 Resuscitation Status Routine 05/19/18 20:40 Ambulate-Progressive PRN Anti-Embolism Devices CONT Condition Routine IV Insertion/Management QSHIFT Intake and Output qshiftio Notify Provider .routine VTE Risk: Assessment ONCE Weight Monitoring QHS Renal/Consistent Carbohydrate Diet RD to Adjust Diet/Supplements as Needed Routine Incentive Spirometry Assess/Tx Q2HWA Nebulizer management .Routine Oxygen Order .Routine 05/19/18 20:44 Consult to Physician [CONS] Routine 05/21/18 01:56 Blood Product Documentation NOW 05/21/18 02:36 Admit as Inpatient Routine 0.9 % Sodium Chloride [Sodium Chloride 0.9%] 250 ml IV 20 mls/hr Acetaminophen [Tylenol] 650 mg PO Q6HP PRN Albuterol Sulfate [Ventolin] 2.5 mg NEB Q2HP PRN Dextrose 50% See Dose Instructions IV UD PRN Dextrose [Insta-Glucose] 15 gm PO PRN PRN HYDROmorphone [Dilaudid] 0.5 mg IV Q2HP PRN HYDROmorphone [Dilaudid] 2 mg PO Q4-6HP PRN Naloxone HCl [Narcan] 0.1 mg IV Q2MIN PRN Ondansetron [Zofran] 4 mg IV Q6HP PRN diphenhydrAMINE [Benadryl] 25 mg PO Q4-6HP PRN Nebulizer management .Routine 05/21/18 06:00 0.9 % Sodium Chloride [Saline Flush] 10 ml IV Q8 05/21/18 07:30 Accu-Chek 1 each FS ACHS Insulin Lispro [HumaLOG] See Dose Instructions SQ ACHS Pantoprazole [Protonix] 40 mg IV BIDAC 05/21/18 08:00 Patients Own Medication 1 dose PO TIDCC 05/21/18 09:25 CT abdomen pelvis wo con Urgent 05/21/18 13:13 Hemoglobin and Hematocrit Stat 05/22/18 04:00 Complete Blood Count DAILY Inpatient Panel DAILY 05/23/18 04:00 Complete Blood Count DAILY Inpatient Panel DAILY 05/24/18 04:00 Complete Blood Count DAILY Inpatient Panel DAILY 05/25/18 04:00 Complete Blood Count DAILY Inpatient Panel DAILY 05/26/18 04:00 Complete Blood Count DAILY Inpatient Panel DAILY Transfer Discharge Sum: A/P - Plan Overall status at transfer: patient is not back to baseline Disposition: Xfer [facility] Quality Measure Queries - VTE Deep Vein Thrombosis/Pulmonary Embolism Present on Admission: No
--- NOTE | 2018-05-21 14:52 | Cat Scan Report ---
CLINICAL INFORMATION: Follow-up inferior right perinephric hematoma. Continued blood loss with transfusion requirement COMPARISON: Abdomen and pelvic CT from 05/19/2018 05/20/2018. TECHNIQUE: 0.625 mm helical slices were obtained from the mid heart through the subtrochanteric regions. Following reconstruction, 2.5 mm sagittal, coronal and axial reformatted images were processed and reviewed at bone and soft tissue windows.The exam was performed using radiation dose optimization techniques including, but not limited to, automated exposure control, adjustment of the mA and/or kV according to patient size and use of iterative reconstruction technique. FINDINGS: The large retroperitoneal hematoma, in the inferior right perinephric space, has increased is now 13.5 x 8. In addition, there is more high density acute hemorrhage within the fluid collection now with continued hemorrhage. Moderate amount of edema seen throughout the right retroperitoneum which also show slight increase. Bilateral renal atrophy seen as before. The noncontrasted adrenal glands, spleen, pancreas, liver and aorta are normal. Multiple ventral hernias previously described, are unchanged. No evidence of incarceration or bowel structure Images should the pelvis show normal-appearing postmenopausal uterus and stable 7 mm cyst left ovary. Urinary bladder is normal. IMPRESSION: Continued increase in right inferior perinephric hematoma now spanning 13.5 cm. No other change Interpreted and Authenticated by: Marc Rizzo 05/21/18
== END 2018-05-21 14:22 | disposition short-term general hospital (02) | DRG 314 ==
LOC: MEDSUR 18:56 → ED 18:56 → MEDSUR 20:30 → ICU 05-21 02:38
PROVIDERS: ADMIT Internal Medicine; ATTEND Internal Medicine
CPT/HCPCS: 84145; 99217; 99219; 99224; 99226; G0378; J1170; J1817; J2405; J7040; J7050

== ENCOUNTER 2018-10-28 18:30 | Inpatient (IN) ==
[2018-10-28] MEDS ORDERED: IPRATROPIUM/ALBUTEROL 3 ML AMPUL.NEB NEB ONE (19:01)
--- NOTE | 2018-10-28 19:07 | Emergency Department Note ---
SOB HPI - General Chief Complaint: Shortness of Breath/Dyspnea Stated Complaint: sob, nauseous Time Seen by Provider: 10/28/18 18:56 Source: patient Mode of arrival: wheelchair Limitations: no limitations - History of Present Illness 48-year-old female having trouble breathing for the last 5 days or so. Denies history of COPD or asthma. Has dry cough.. Notes posttussive emesis at times. Is a dialysis patient as well. Notes that she had recent pulmonary function tests and echocardiogram last month. She dialyzed yesterday. She does not make urine - Related Data Home Medications Medication Instructions Recorded Confirmed diphenhydrAMINE [Benadryl] 25 mg PO Q4-6HP PRN 05/19/18 10/23/18 Previous Rx's Medication Instructions Recorded Ondansetron [Zofran ODT] 4 mg PO Q6H PRN #20 tab 04/20/18 HYDROmorphone HCL [Dilaudid] 2 mg PO Q4-6HP PRN #20 tab 05/19/18 HYDROmorphone HCL [Dilaudid] 2 mg PO Q4-6HP PRN #15 tab 06/06/18 cholecalciferol (vitamin D3) 1,000 1,000 unit PO QDAY #30 cap 06/19/18 unit capsule Albuterol Sulfate [Proair Hfa] 1 - 2 puff IH Q4-6HP PRN #1 07/14/18 hfa.aer.ad amlodipine 10 mg tablet 10 mg PO DAILY #30 tab 08/24/18 carvedilol 25 mg tablet 25 mg PO BIDCC #60 tab 09/13/18 sucroferric oxyhydroxide 500 mg 1,000 mg PO TID #180 tab 10/13/18 chewable tablet Allergies Allergy/AdvReac Type Severity Reaction Status Date / Time codeine AdvReac Mild Vomiting Verified 10/29/18 07:04 diazepam [From Valium] AdvReac Mild Other Verified 10/29/18 07:04 Review of Systems All systems ED: reviewed and negative except as stated. Past Medical History - Past Medical History Attestation: Yes: The following information was validated with the patient. [facility] Narrative: Family History (Last Reviewed 10/23/18 @ 15:04 by María Elena Mercado RN) sister Chronic kidney disease, stage V Acute myocardial infarction Allergies codeine Adverse Reaction (Intermediate, Verified 10/23/18 15:02) Vomiting diazepam [From Valium] Adverse Reaction (Verified 10/23/18 15:02) Other Care Team Visit Care Team Role Provider Type CARLITOS Hernandez Family Provider Nurse Practitioner Primary Care Provider Sameer Naik MD Emergency Provider Physician Clinical Data Visit Reason sob, nauseous Language Kosovan Medical History (Last Reviewed 10/23/18 @ 15:04 by María Elena Mercado RN) Acute whiplash injury (Acute) Bronchitis (Acute) Hypertensive urgency (Acute) Nausea & vomiting (Acute) Anemia (Acute) Leukocytosis (Acute) Hypothyroidism (Chronic) Vomiting (Chronic) Chest pain (Acute) Atypical chest pain (Acute) Obesity (Chronic) Secondary hyperparathyroidism of renal origin (Chronic) Proteinuria (Chronic) Vitamin D deficiency (Acute) Retinopathy, diabetic, background (Acute) Rash (Acute) Insomnia (Acute) Hypertension, essential, benign (Acute) Hyperlipidemia (Acute) Edema leg (Acute) 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) Diabetes mellitus type II, uncontrolled (Acute) CHF (congestive heart failure) (Acute) Chest pain (Acute) Social History (Last Updated 10/23/18 @ 15:27 by Jaylan Martell MD) No Social History Section defined Surgical History (Last Reviewed 10/23/18 @ 15:04 by María Elena Mercado RN) Hx of abdominal surgery (Acute) H/O angioplasty (Acute) Last 24 hour Vital Signs Temp Pulse Resp BP Pulse Ox 10/28/18 18:30 97.7 F 104 H 14 198/93 100 Cumulative Intake and OUtput 10/28/18 18:30 thru 10/28/18 18:30 Weight 172 lb Past Surgical History (Last Reviewed 10/23/18 @ 15:04 by María Elena Mercado, RN) Hx of abdominal surgery (Acute) H/O angioplasty (Acute) Medical history: Reports: CAD (coronary artery disease), DM, GERD, hyperlipidemia, hypertension, renal disease, thyroid disease, other (right renal cyst ) Psychiatric history: Reports: depression Surgical history ED: Reports: other (dialysis fistula / catheter and 2 times abdominal surgeries) - Social History smoking status: Former smoker Alcohol use: Reports: Unknown Drug use: Reports: unknown Physical Exam Some acute distress secondary to trouble breathing. Normocephalic atraumatic. Conjunctive are clear sclerae nonicteric. No nasal discharge but audible congestion. Oropharynx pink and moist. Neck is supple without lymphadenopathy thyromegaly or carotid bruit. Heart somewhat tachycardic. Lungs with tight breath sounds and significant wheezing. Occasional nonproductive cough with a deep breath. I do not hear rales though. Fistula right upper arm. Does not appear erythematous. She is alert oriented but irritable Limitations: no limitations Course Vital Signs Temperature 97.7 F 10/28/18 18:30 Pulse Rate 104 H 10/28/18 18:30 Respiratory Rate 14 10/28/18 18:30 Blood Pressure 198/93 10/28/18 18:30 Pulse Oximetry (%) 100 10/28/18 18:30 Temperature 98.8 F 10/29/18 03:33 Pulse Rate 88 10/29/18 05:01 Respiratory Rate 24 H 10/29/18 05:01 Blood Pressure 137/71 10/29/18 05:01 Pulse Oximetry (%) 94 10/29/18 05:01 Shortness of Breath/Dyspnea - Medical Records Medical records reviewed: Yes I reviewed the patient's medical records. Reviewed echocardiogram from early September 2018 which showed decreased ejection fraction which is new down to 45% or so Reviewed pulmonary function from September as well which showed restrictive lung disease. - Lab Data Lab results reviewed: Yes I reviewed the patient's lab results. Result diagrams: 10/29/18 03:31 10/29/18 03:30 Lab Results 10/28/18 10/28/18 10/28/18 Range/Units 19:18 19:18 19:18 WBC 4.3 L (4.5-11.0) K/mcL RBC 5.08 (4.00-5.20) M/mcL Hgb 13.9 (12.0-15.0) g/dL Hct 44.1 (36.0-48.0) % MCV 86.8 (80.0-100.0) fL MCH 27.3 (26.0-34.0) pg MCHC 31.4 (31.0-36.0) g/dL RDW 17.8 H (11.5-14.5) % Plt Count 204 (140-440) K/mcL MPV 8.3 (7.4-10.4) fL Gran % 79.0 H (38.0-78.0) % Lymph % (Auto) 10.0 L (15.5-49.0) % [place] % (Auto) 8.2 (1.0-12.0) % Eos % (Auto) 2.6 (0.0-7.0) % Baso % (Auto) 0.2 (0.0-2.0) % Gran # 3.4 (1.8-8.0) K/mcL Lymph # (Auto) 0.4 L (1.5-4.8) K/mcL [place] # (Auto) 0.4 (0.1-0.9) K/mcL Eos # (Auto) 0.1 (0.0-0.7) K/mcL Baso # (Auto) 0 (0.0-0.3) K/mcL VBG Lactic Acid 1.3 (0.5-2.0) mmol/L Sodium 133 (133-145) mmol/L Potassium 3.9 (3.3-5.1) mmol/L Chloride 89 L (96-108) mmol/L Carbon Dioxide 24 (22-30) mmol/L Anion Gap 20.0 H (8-16) BUN 27 H (6-20) mg/dl Creatinine 4.2 H (0.6-1.1) mg/dl GFR Calculation 12 Glucose 143 H (70-105) mg/dL Calcium 9.7 (8.6-10.4) mg/dl Magnesium 2.2 (1.6-2.5) mg/dL Total Bilirubin 1.4 H (0.0-1.0) mg/dL AST 17 (0-37) U/l ALT 11 (0-40) U/l Alkaline Phosphatase 171 H (39-117) U/L Troponin T (0-0.03) ng/ml NT-Pro-B Natriuret Pep 99203.0 H (0-125) pg/ml Total Protein 8.3 (5.9-8.4) gm/dL Albumin 4.2 (3.2-5.2) gm/dL Globulin 4.1 H (2.2-3.7) gm/dL Albumin/Globulin Ratio 1.0 (1.0-2.3) Procalcitonin (<0.10) ng/mL 10/28/18 10/28/18 Range/Units 19:18 19:18 WBC (4.5-11.0) K/mcL RBC (4.00-5.20) M/mcL Hgb (12.0-15.0) g/dL Hct (36.0-48.0) % MCV (80.0-100.0) fL MCH (26.0-34.0) pg MCHC (31.0-36.0) g/dL RDW (11.5-14.5) % Plt Count (140-440) K/mcL MPV (7.4-10.4) fL Gran % (38.0-78.0) % Lymph % (Auto) (15.5-49.0) % [place] % (Auto) (1.0-12.0) % Eos % (Auto) (0.0-7.0) % Baso % (Auto) (0.0-2.0) % Gran # (1.8-8.0) K/mcL Lymph # (Auto) (1.5-4.8) K/mcL [place] # (Auto) (0.1-0.9) K/mcL Eos # (Auto) (0.0-0.7) K/mcL Baso # (Auto) (0.0-0.3) K/mcL VBG Lactic Acid (0.5-2.0) mmol/L Sodium (133-145) mmol/L Potassium (3.3-5.1) mmol/L Chloride (96-108) mmol/L Carbon Dioxide (22-30) mmol/L Anion Gap (8-16) BUN (6-20) mg/dl Creatinine (0.6-1.1) mg/dl GFR Calculation Glucose (70-105) mg/dL Calcium (8.6-10.4) mg/dl Magnesium (1.6-2.5) mg/dL Total Bilirubin (0.0-1.0) mg/dL AST (0-37) U/l ALT (0-40) U/l Alkaline Phosphatase (39-117) U/L Troponin T 0.03 (0-0.03) ng/ml NT-Pro-B Natriuret Pep (0-125) pg/ml Total Protein (5.9-8.4) gm/dL Albumin (3.2-5.2) gm/dL Globulin (2.2-3.7) gm/dL Albumin/Globulin Ratio (1.0-2.3) Procalcitonin 0.93 (<0.10) ng/mL - Radiology Data Radiology results reviewed: Yes I reviewed the patient's radiology results. Chest x-ray shows pulmonary vascular congestion consistent with moderate CHF - EKG Data EKG attestation: Yes I reviewed and interpreted this EKG. EKG results narrative: EKG shows normal sinus rhythm with a rate of 99. T wave flattening and inversion in 1 and aVL-this was also present on comparative EKG 07/14/2018 Disposition Pt seen by BOWL ATTENDANT/PA only: No Clinical Impression: Hypertensive urgency, ESRD (end stage renal disease) on dialysis CHF (congestive heart failure) Qualifiers: Heart failure type: systolic Heart failure chronicity: acute on chronic Qualif ied Code(s): I50.23 - Acute on chronic systolic (congestive) heart failure Nausea & vomiting Qualifiers: Vomiting type: unspecified Vomiting Intractability: non-intractable Qualified Code(s): R11.2 - Nausea with vomiting, unspecified Summary: After initial evaluation work-up ordered with x-ray and laboratory. Start breathing treatment. She has not been taking her home blood pressure medicines we will give those today Breathing treatment did help some. Chest x-ray showed pulmonary vascular congestion consistent with moderate CHF-her echocardiogram corroborates that. Unfortunately she does not make urine so were not able to diurese her she will require dialysis to get the fluid off of her lungs. Laboratory corroborates fluid overload. So I discussed the case with Dr. Lam, sap senior developer on-call, for emergency dialysis. He agreed to consult. I then discussed the case with Dr. Beard, hospitalist who agreed to admit the patient for further care and work-up Disposition: Xfer As Inpt ([facility]) Condition: Fair
[2018-10-28] MEDS ORDERED: CARVEDILOL 12.5 MG TABLET PO SCH (19:15)
[2018-10-28] MEDS ORDERED: amLODIPine 10 MG TABLET PO ONE (19:17)
[2018-10-28 19:51] LABS: Basophils # (Auto) 0 K/mcL (0.0-0.3); Basophils % (Auto) 0.2 % (0.0-2.0); Eosinophils # (Auto) 0.1 K/mcL (0.0-0.7); Eosinophils % (Auto) 2.6 % (0.0-7.0); Hematocrit 44.1 % (36.0-48.0); Hemoglobin 13.9 g/dL (12.0-15.0); Lymphocytes # (Auto) 0.4 K/mcL (1.5-4.8); Mean Cell Volume 86.8 fL (80.0-100.0); Mean Corpuscular HGB Conc 31.4 g/dL (31.0-36.0); Mean Platelet Volume 8.3 fL (7.4-10.4); Monocytes # (Auto) 0.4 K/mcL (0.1-0.9); Monocytes % (Auto) 8.2 % (1.0-12.0); Platelet Count 204 K/mcL (140-440); RBC 5.08 M/mcL (4.00-5.20); Red Cell Distribution Width 17.8 % (11.5-14.5); WBC 4.3 K/mcL (4.5-11.0)
[2018-10-28 20:30] LABS: ALT/SGPT 11 U/l (0-40); Albumin 4.2 gm/dL (3.2-5.2); Alkaline Phosphatase 171 U/L (39-117); Bilirubin,Total 1.4 mg/dL (0.0-1.0); Blood Urea Nitrogen 27 mg/dl (6-20); Calcium 9.7 mg/dl (8.6-10.4); Carbon Dioxide 24 mmol/L (22-30); Chloride 89 mmol/L (96-108); Globulin 4.1 gm/dL (2.2-3.7); Glomerular Filtration Rate 12; Glucose 143 mg/dL (70-105); Magnesium 2.2 mg/dL (1.6-2.5); Potassium 3.9 mmol/L (3.3-5.1); Sodium 133 mmol/L (133-145)
[2018-10-28 21:26] LABS: AST/SGOT 17 U/l (0-37)
--- NOTE | 2018-10-28 22:40 | Internal Med History&Physical ---
Medical - H&P: [facility] Patient information: Note initiated : 10/28/18 at 10:40 pm Service Date, if different from initiated Date: [] Patient: Carlene Maddox a 48 y/o F admitted on for sob, nauseous. Chief Complaint: [] Chief complaint: shortness of breath and cough History of present illness: Ms. Maddox is a 48 year old F with history of ESRD on hemodialysis who presents to the ER with worsening shortness of breath that involved over the last few days. Patient noted low-grade fever along with productive sputum. She endorses to sick contact as her mother who has been experiencing upper respiratory symptoms for the last week. She denies shaking chills, headache, chest palpitations. Her symptoms progressed to the point that she was barely able to function and has started experiencing dyspnea at rest. Initial workup in the ER was consistent with CHF and volume overload. Patient's systolics over 200. Nephrology was consulted for emergent hemodialysis. Hospitalist service was consulted. Recent echo in October EF 48% At the time evaluation patient is anxious but able to answer most questions. She is a very able talk in full sentences. She denies recent NSAIDs or changes in medications. She started on nicardipine drip She further denies diarrhea dysuria abdominal pain, nausea, vomiting. Review of systems 10 point review of systems was performed and is negative except as discussed above Medical - H&P: PMH Medical history: Acute whiplash injury (Acute) Bronchitis (Acute) Hypertensive urgency (Acute) Nausea & vomiting (Acute) Anemia (Acute) Leukocytosis (Acute) Hypothyroidism (Chronic) Vomiting (Chronic) Chest pain (Acute) Atypical chest pain (Acute) Obesity (Chronic) has been losing weight 2/2 poor po intake - n/v Secondary hyperparathyroidism of renal origin (Chronic) PTH was elevated to 130, goal is 70-110, corrected calcium and phos were ok , clacitriol was started on previous visit continue calcitriol 0.25mcg MWF Ct with OTC cholecalciferol (pt has Vit D deficiency likely related to her nephrotic syndrome) Phos now elevated to >6 in the setting of [facility] will monitor as inpatient Proteinuria (Chronic) Nephrotic syndrome with UPCR Of 13-15gm Faint monoclonal light chain on serum NATHALY, kappa and lambda chain elevated but normal ratio urine NATHALY negative Kidney bx was being considered Will repeat ratios since I suspect some worsening of her proteinuria. 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) Diabetes mellitus type II, uncontrolled (Acute) CHF (congestive heart failure) (Acute) Chest pain (Acute) Surgical History Hx of abdominal surgery (Acute) H/O angioplasty (Acute) 08/05/2015-[facility], Fistulogram with balloo angioplasty of the inflow stenosis Family History sister Chronic kidney disease, stage V Acute myocardial infarction Social History smoking status: Former smoker alcohol intake frequency: holiday/special occasion only Medical - H&P: Meds Home Medications Medication Instructions Recorded Confirmed Type Ondansetron [Zofran ODT] 4 mg PO Q6H PRN #20 tab 04/20/18 10/28/18 Rx HYDROmorphone HCL [Dilaudid] 2 mg PO Q4-6HP PRN #20 tab 05/19/18 10/23/18 Rx diphenhydrAMINE [Benadryl] 25 mg PO Q4-6HP PRN 05/19/18 10/23/18 History HYDROmorphone HCL [Dilaudid] 2 mg PO Q4-6HP PRN #15 tab 06/06/18 10/23/18 Rx cholecalciferol (vitamin D3) 1,000 1,000 unit PO QDAY #30 cap 06/19/18 10/23/18 Rx unit capsule Albuterol Sulfate [Proair Hfa] 1 - 2 puff IH Q4-6HP PRN #1 07/14/18 10/23/18 Rx hfa.aer.ad amlodipine 10 mg tablet 10 mg PO DAILY #30 tab 08/24/18 10/28/18 Rx carvedilol 25 mg tablet 25 mg PO BIDCC #60 tab 09/13/18 10/28/18 Rx sucroferric oxyhydroxide 500 mg 1,000 mg PO TID #180 tab 10/13/18 10/28/18 Rx chewable tablet Allergies Allergy/AdvReac Type Severity Reaction Status Date / Time codeine AdvReac Mild Vomiting Verified 10/29/18 07:04 diazepam [From Valium] AdvReac Mild Other Verified 10/29/18 07:04 Medical - H&P: Exam - Constitutional Vitals: Temp Pulse Resp BP Pulse Ox 97.7 F 96 H 29 H 186/89 93 10/28/18 18:30 10/28/18 21:24 10/28/18 20:08 10/28/18 21:24 10/28/18 21:24 General appearance: no acute distress Exam: Alert and oriented mild anxiety Head normocephalic Neck no lymphadenopathy Oral cavity dry no eardischarge No sclerae icterus S1 and S2 regular rhythm Diminished breath sounds bases with inspiratory crackles Abdomen soft nontender Lower extremity no cyanosis clubbing, right upper extremity AV fistula Skin no suspicious lesion Psych alert cooperative but anxious Neuro nonfocal Medical - H&P: Reslt - Labs CBC & Chem 7: 10/29/18 03:31 10/29/18 03:30 Labs: Short CBC 10/28/18 Range/Units 19:18 WBC 4.3 L (4.5-11.0) K/mcL Hgb 13.9 (12.0-15.0) g/dL Hct 44.1 (36.0-48.0) % Plt Count 204 (140-440) K/mcL BMP 10/28/18 19:18 Sodium 133 Potassium 3.9 Chloride 89 L Carbon Dioxide 24 BUN 27 H Creatinine 4.2 H Glucose 143 H Calcium 9.7 Cardiac Enzymes 10/28/18 Range/Units 19:18 Troponin T 0.03 (0-0.03) ng/ml Liver Function 10/28/18 Range/Units 19:18 Total Bilirubin 1.4 H (0.0-1.0) mg/dL AST 17 (0-37) U/l ALT 11 (0-40) U/l Alkaline Phosphatase 171 H (39-117) U/L Albumin 4.2 (3.2-5.2) gm/dL Medical - H&P: A/P (1) Hypertensive crisis Current visit: Yes Status: Acute * Accelerated hypertension with Hypertensive crisis and congestive heart failure- start nicardipine drip started systolic reduction 20%. Nephrology consult * Acute pulmonary edema secondary to hypertensive crisis and volume overload- emergent hemodialysis per nephrology * ESRD on HD management nephrology * Fever with cough suspect bacterial pneumonia in light of sick contact. Elevated pro calcitonin 0.93/sputum cultures/blood cultures/Legionella and Myc oplasma serology. Start empiric antibiotic coverage and de-escalate based on sensitivities. * History of right renal hematoma-now organizing fibrosis on ultrasound. * Full code * Prophylaxis heparin Plan * ICU admission * Hypertensive crisis management on IV antihypertensive drips including labetalo l/nicardipine * Emergent renal consult for hemodialysis * Antibiotic coverage in light of elevated pro calcitonin, fever and cough with a suspicion of pneumonia Critical time spent over 35 minutes on management of hypertensive crisis in addition to 60 minutes spent on history physical
[2018-10-28] MEDS ORDERED: ONDANSETRON 4 MG ODT TABLET PO PRN (23:52)
[2018-10-28] MEDS ORDERED: niCARdipine 25 MG in 0.9 % SODIUM CHLORIDE 240 ML IV SCH (23:52)
[2018-10-28] MEDS ORDERED: hydrALAZINE 20 MG/ML VIAL IV PRN (23:52)
[2018-10-28] MEDS ORDERED: IPRATROPIUM/ALBUTEROL 3 ML AMPUL.NEB NEB PRN (23:52)
[2018-10-28] MEDS ORDERED: ONDANSETRON 4 MG/2 ML VIAL IV PRN (23:52)
[2018-10-28] MEDS ORDERED: ACETAMINOPHEN 1,000 MG/100 ML BOTTLE IV PRN (23:52)
[2018-10-29] MEDS ORDERED: hydrALAZINE 20 MG/ML VIAL ONE (00:18)
[2018-10-29] MEDS ORDERED: ACETAMINOPHEN 1,000 MG/100 ML BOTTLE IV ONE (00:20)
[2018-10-29] MEDS ORDERED: IPRATROPIUM/ALBUTEROL 3 ML AMPUL.NEB NEB ONE (03:55)
--- NOTE | 2018-10-29 05:02 | Nephrology Consult Note ---
History of Present Illness - Reason for Consult Patient information: Note initiated : 10/29/18 at 4:59 am Patient: Carlene Maddox a 48 y/o F admitted on 10/28/18 for sob, nauseous. Consult date: 10/29/18 end stage renal disease, accelerated hypertension Requesting physician: Demond Peters - Chief Complaint Shortness or breath - History of Present Illness Carlene Maddox is a 48-year-old female with end-stage renal disease on chronic hemodialysis (through right arm AV fistula, at [facility], on [facility]), chronic anemia due to kidney disease, coronary artery disease (Echo on 09/08/18: LVEF 48%, mild global hypokinesis of the left ventricle and mild to moderate concentric left ventricular hypertrophy), diabetes mellitus type 2, hypertension, presented to ED for shortness of breath and cough for the past 5 days and admitted on 10/28/18. Review of Systems Constitutional: weakness, no fever(s) Nose, mouth and throat: no nasal congestion, no sore throat Cardiovascular: no chest pain, no palpatations Respiratory: cough, dyspnea Gastrointestinal: no abdominal pain, no diarrhea Genitourinary: no dysuria, no hematuria Musculoskeletal: no joint swelling, no neck pain Integumentary: no rash, no wounds Neurological: no confusion, no focal weakness Psychiatric: no anxiety, no panic attacks Endocrine: no cold intolerance, no heat intolerance Hematologic/Lymphatic: no easy bleeding, no easy bruising Allergic/Immunologic: no tongue swelling, no uticaria Past History Past medical history: Medical History (Last Reviewed 10/23/18 @ 15:04 by María Elena Mercado RN) Acute whiplash injury (Acute) Bronchitis (Acute) Hypertensive urgency (Acute) Nausea & vomiting (Acute) Anemia (Acute) Leukocytosis (Acute) Hypothyroidism (Chronic) Vomiting (Chronic) Chest pain (Acute) Atypical chest pain (Acute) Obesity (Chronic) Secondary hyperparathyroidism of renal origin (Chronic) Proteinuria (Chronic) Vitamin D deficiency (Acute) Retinopathy, diabetic, background (Acute) Rash (Acute) Insomnia (Acute) Hypertension, essential, benign (Acute) Hyperlipidemia (Acute) Edema leg (Acute) 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) Diabetes mellitus type II, uncontrolled (Acute) CHF (congestive heart failure) (Acute) Chest pain (Acute) Past surgical history: Past Surgical History (Last Reviewed 10/23/18 @ 15:04 by María Elena Mercado RN) Hx of abdominal surgery (Acute) H/O angioplasty (Acute) Past family history: Family History (Last Reviewed 10/23/18 @ 15:04 by María Elena Mercado RN) sister Chronic kidney disease, stage V Acute myocardial infarction Past social history: Social History (Last Updated 10/23/18 @ 15:27 by Jaylan Martell MD) No Social History Section defined Medications and Allergies Home Medications Medication Instructions Recorded Confirmed Type Ondansetron [Zofran ODT] 4 mg PO Q6H PRN #20 tab 04/20/18 10/28/18 Rx HYDROmorphone HCL [Dilaudid] 2 mg PO Q4-6HP PRN #20 tab 05/19/18 10/23/18 Rx diphenhydrAMINE [Benadryl] 25 mg PO Q4-6HP PRN 05/19/18 10/23/18 History HYDROmorphone HCL [Dilaudid] 2 mg PO Q4-6HP PRN #15 tab 06/06/18 10/23/18 Rx cholecalciferol (vitamin D3) 1,000 1,000 unit PO QDAY #30 cap 06/19/18 10/23/18 Rx unit capsule Albuterol Sulfate [Proair Hfa] 1 - 2 puff IH Q4-6HP PRN #1 07/14/18 10/23/18 Rx hfa.aer.ad amlodipine 10 mg tablet 10 mg PO DAILY #30 tab 08/24/18 10/28/18 Rx carvedilol 25 mg tablet 25 mg PO BIDCC #60 tab 09/13/18 10/28/18 Rx sucroferric oxyhydroxide 500 mg 1,000 mg PO TID #180 tab 10/13/18 10/28/18 Rx chewable tablet Allergies Allergy/AdvReac Type Severity Reaction Status Date / Time codeine AdvReac Intermediate Vomiting Verified 10/23/18 15:02 diazepam [From Valium] AdvReac Other Verified 10/23/18 15:02 Exam - Vital Signs Vital signs: Temp Pulse Resp BP Pulse Ox 98.8 F 81 33 H 142/69 98 10/29/18 03:33 10/29/18 03:33 10/29/18 03:33 10/29/18 03:31 10/29/18 03:33 - General Appearance General appearance: fatigue EENT: mucous membranes moist Neck: supple Respiratory: course breath sounds Cardiology: no edema, regular rate Gastrointestinal: no tenderness, no guarding Integumentary: no rash, warm and dry Neurologic: no focal deficit, alert and oriented x3 Musculoskeletal: no deformities, warmth Psychiatric: mood/affect appropriate, cooperative Results - Lab Results 10/28/18 19:18 10/28/18 19:18 Most recent lab results Calcium 9.7 mg/dl (8.6-10.4) 10/28/18 19:18 Magnesium 2.2 mg/dL (1.6-2.5) 10/28/18 19:18 Assessment and Plan (1) ESRD (end stage renal disease) on dialysis Carlene Maddox is a 48-year-old female with end-stage renal disease on chronic hemodialysis (through right arm AV fistula, at [facility], on MWF), chronic anemia due to kidney disease, coronary artery disease, diabetes mellitus type 2, hypertension, presented to ED for shortness of breath and cough for the past 5 days and admitted on 10/28/18. End-stage renal disease. Her last hemodialysis on 10/27/18. Accelerated hypertension. Receiving IV Nicardipine in ICU. Suspected fluid overload. Recent work up: Pulmonary function study on 09/08/18: Mild restrictive pulmonary deficit with a reduced total lung capacity with lower diffusing capacity and the spirometric airflow pattern suggesting increased elastic recoil. Echo on 09/08/18: LVEF 48%, mild global hypokinesis of the left ventricle and mild to moderate concentric left ventricular hypertrophy. Renal US on 10/20/18: 12 cm hematoma in the inferior right perinephric space shows only slight decrease since exam over three months ago. This may represent organizing fibrosis at this point. Consider repeat CT for better evaluation. Plan: Hemodialysis today with UF target of 4000 ml. Status: Chronic Priority: Medium (2) Hypertensive urgency Please see above. Status: Acute Priority: Medium
[2018-10-29] MEDS: 0.9 % SODIUM CHLORIDE 10 ML SYRINGE IV SCH ×3 (05:22→21:40)
[2018-10-29 05:33] LABS: Hematocrit 35.1 % (36.0-48.0); Hemoglobin 11.2 g/dL (12.0-15.0); Mean Cell Volume 86.6 fL (80.0-100.0); Mean Corpuscular HGB Conc 31.9 g/dL (31.0-36.0); Mean Platelet Volume 8.6 fL (7.4-10.4); Platelet Count 166 K/mcL (140-440); RBC 4.05 M/mcL (4.00-5.20); Red Cell Distribution Width 17.8 % (11.5-14.5); WBC 4.6 K/mcL (4.5-11.0)
[2018-10-29 05:53] LABS: ALT/SGPT 8 U/l (0-40); AST/SGOT 12 U/l (0-37); Albumin 3.2 gm/dL (3.2-5.2); Alkaline Phosphatase 137 U/L (39-117); Bilirubin,Direct 0.3 mg/dL (0.0-0.3); Bilirubin,Total 0.9 mg/dL (0.0-1.0); Blood Urea Nitrogen 32 mg/dl (6-20); Calcium 8.6 mg/dl (8.6-10.4); Carbon Dioxide 26 mmol/L (22-30); Chloride 93 mmol/L (96-108); Globulin 3.1 gm/dL (2.2-3.7); Glomerular Filtration Rate 10; Glucose 191 mg/dL (70-105); Lactate Dehydrogenase 192 U/L (94-250); Phosphorous 3.1 mg/dL (2.7-4.5); Potassium 3.8 mmol/L (3.3-5.1); Sodium 133 mmol/L (133-145); Triglycerides 110 mg/dl (<150); Uric Acid 3.9 mg/dL (2.5-8.0)
[2018-10-29 06:32] LABS: Anisocytosis 1+ (NONE SEEN); Band Neutrophils % 3 % (0-10); Eosinophils % (Manual) 2 % (0-7); Lymphocytes % 12 % (15-49); Monocytes % (Manual) 10 % (1-12); Platelet Estimate NORMAL (NORMAL); RBC Morphology ABNORM (NORMAL); Segmented Neutrophils % 73 % (38-78)
--- NOTE | 2018-10-29 07:13 | XRay Report ---
CLINICAL INFORMATION: dyspnea COMPARISON: 07/14/2018 FINDINGS: The heart is moderately enlarged - slightly increased. Mediastinum is unremarkable. Pulmonary vessels are moderately distended with minimal interstitial edema in the lateral bases. No infiltrates. IMPRESSION: Mild CHF Interpreted and Authenticated by: Marc Rizzo 10/29/18
[2018-10-29] MEDS: CARVEDILOL 12.5 MG TABLET PO SCH ×2 (07:19→17:58)
[2018-10-29] MEDS: HEPARIN 5,000 UNIT/ML VIAL SQ SCH ×2 (10:51→21:39)
[2018-10-29] MEDS: amLODIPine 10 MG TABLET PO SCH (10:51)
[2018-10-29] MEDS: SUCROFERRIC OXYHYDROXIDE 1000 MG PO SCH ×3 (10:51→18:03)
[2018-10-29] MEDS: guaiFENesin/DEXTROMETHORPHAN ORAL SOL PO PRN ×3 (10:53→21:39)
[2018-10-29] MEDS: DOCUSATE SODIUM 100 MG CAPSULE PO SCH ×2 (10:53→21:40)
[2018-10-29] MEDS: ACETAMINOPHEN 325 MG TABLET PO PRN ×2 (12:36→17:59)
[2018-10-29] MEDS: PIPERACILLIN SODIUM/TAZOBACTAM 2.25 GM in DEXTROSE 5% IN WATER 50 ML IV SCH ×2 (12:37→21:39)
--- NOTE | 2018-10-29 12:56 | Internal Med Progress Note ---
Medical - PN: Subj Patient information: Note initiated : 10/29/18 at 12:54 pm Service Date, if different from initiated Date: [] Patient: Carlene Maddox a 48 y/o F admitted on 10/28/18 for sob, nauseous. Chief Complaint: [] Interval history: Ms. Maddox is a 48 year old F with history of ESRD on hemodialysis who presents to the ER with worsening shortness of breath that involved over the last few days. Patient noted low-grade fever along with productive sputum. She endorses to sick contact as her mother who has been experiencing upper respiratory symptoms for the last week. She denies shaking chills, headache, chest palpitations. Her symptoms progressed to the point that she was barely able to function and has started experiencing dyspnea at rest. Initial workup in the ER was consistent with CHF and volume overload. Patient's systolics over 200. Nephrology was consulted for emergent hemodialysis. Hospitalist service was consulted. Recent echo in October EF 48% At the time evaluation patient is anxious but able to answer most questions. She is a very able talk in full sentences. She denies recent NSAIDs or changes in medications. She started on nicardipine drip She further denies diarrhea dysuria abdominal pain, nausea, vomiting. 10/29- patient admitted to ICU, overnight on antihypertensives drip. Ongoing hemodialysis for flash pulmonary edema. White count 4.6, cultures pending, MAXIMUM TEMPERATURE 101. Minimal discomfort. No telemetry events. Restart on home antihypertensives, weaning nicardipine drip. Repeat chest imaging in 24 hours. - Constitutional Vitals: Vital Signs Temp Pulse Resp BP Pulse Ox 100.8 F H 92 H 16 167/77 94 10/29/18 11:55 10/29/18 11:55 10/29/18 08:00 10/29/18 11:55 10/29/18 08:00 Period Temp Pulse Resp BP Sys/Shin Pulse Ox Last 24 Hr 97.7 F-101 F 81-104 14-38 130-210/54-181 80-100 Intake and Output 10/28/18 10/29/18 10/29/18 21:59 05:59 13:59 Intake Total 259 80 Output Total 4000 Balance 259 -3920 Weight 172 lb 170 lb 14.4 oz Intake & Output: Intake & Output 10/28/18 10/29/1810/29/19 21:59 05:59 13:59 Intake Total 259 80 Output Total 4000 Balance 259 -3920 Weight 172 lb 170 lb 14.4 oz Intake: IV 159 80 Cardene 25 MG In Sodium 59 80 Chloride 0.9% 240 ml @ 5 MG/HR 50 mls/hr IV ONCE [facility] Rx#: [id number] Oral 100 Output: Hemodialysis UF 4000 Other: Meal 2 fruit cups and mauro crackers Percent of Meal Consumed 100% Feeding Ability Independent General appearance: moderate distress (shortness of breath) Exam: Alert oriented Labored breathing Ongoing hemodialysis No telemetry events Anxious Medical - PN: Obj Da - Labs CBC & Chem 7: 10/29/18 03:31 10/29/18 03:30 Labs: Abnormal Lab Results 10/29/18 10/29/18 10/28/18 03:31 03:30 19:18 WBC Hgb 11.2 L Hct 35.1 L RDW 17.8 H Gran % Lymph % (Auto) Lymph # (Auto) Lymphocytes % 12 L RBC Morphology Abnorm A Anisocytosis 1+ A Chloride 93 L 89 L Anion Gap 20.0 H BUN 32 H 27 H Creatinine 4.8 H 4.2 H Glucose 191 H 143 H Total Bilirubin 1.4 H GGT 45 H Alkaline Phosphatase 137 H 171 H NT-Pro-B Natriuret Pep 82576.0 H Globulin 4.1 H 10/28/18 19:18 WBC 4.3 L Hgb Hct RDW 17.8 H Gran % 79.0 H Lymph % (Auto) 10.0 L Lymph # (Auto) 0.4 L Lymphocytes % RBC Morphology Anisocytosis Chloride Anion Gap BUN Creatinine Glucose Total Bilirubin GGT Alkaline Phosphatase NT-Pro-B Natriuret Pep Globulin Meds: Medications Acetaminophen (Tylenol) 650 mg PO Q4-6HP PRN PRN Reason: PAIN/FEVER > 101 Last Admin: 10/29/18 12:36 Dose: 650 mg Documented by: Albuterol/Ipratropium (Duoneb) 3 ml NEB Q4HP PRN PRN Reason: Shortness Of Breath Amlodipine Besylate (Norvasc) 10 mg PO DAILY [facility] Last Admin: 10/29/18 10:51 Dose: 10 mg Documented by: Carvedilol (Coreg) 25 mg PO BIDCC [facility] Last Admin: 10/29/18 07:19 Dose: 25 mg Documented by: Docusate Sodium (Colace) 100 mg PO BID SAROJ Last Admin: 10/29/18 10:53 Dose: Not Given Documented by: Guaifenesin (Robitussin Dm) 5 ml PO Q4HP PRN PRN Reason: Cough Last Admin: 10/29/18 10:53 Dose: 5 ml Documented by: Heparin Sodium (Porcine) (Heparin) 5,000 unit SQ Q12 SAROJ Last Admin: 10/29/18 10:51 Dose: 5,000 unit Documented by: Hydralazine HCl (Apresoline) 10 - 20 mg IV Q4-6HP PRN PRN Reason: Hypertension Last Admin: 10/29/18 00:25 Dose: 20 mg Documented by: Nicardipine HCl 25 mg/ Sodium (Chloride) 250 mls @ 50 mls/hr IV ONCE [facility]; Protocol Last Titration: 10/29/18 07:21 Dose: 0 mg/hr, 0 mls/hr Documented by: Acetaminophen (Ofirmev) 1,000 mg in 100 mls @ 200 mls/hr IV Q6HP PRN PRN Reason: PAIN/FEVER > 101 Last Infusion: 10/29/18 01:02 Dose: Infused Documented by: Piperacillin Sod/Tazobactam (Sod 2.25 gm/ Dextrose) 50 mls @ 100 mls/hr IV Q12H [facility]; Protocol Last Admin: 10/29/18 12:37 Dose: 100 mls/hr Documented by: Ondansetron HCl (Zofran) 4 mg IV Q4-6HP PRN PRN Reason: Nausea And Vomiting Ondansetron HCl (Zofran Odt) 4 mg PO Q6H PRN PRN Reason: nausea and vomiting Sucroferric Oxyhydroxide [ Velphoro] 1,000 Mg Tab 1 dose PO TIDCC SAROJ Last Admin: 10/29/18 12:23 Dose: Not Given Documented by: Senna/Docusate Sodium (Senna Plus Tablet) 1 tab PO HS [facility] Sodium Chloride (Saline Flush) 10 ml IV Q8 SAROJ Last Admin: 10/29/18 05:22 Dose: 10 ml Documented by: Medical - PN: A/P - Time Spent With Patient Total time spent is greater than 50% in coordination of care (as documented) at patient's floor/unit and/or counseling patient: 25 - 35 minutes (1) Hypertensive crisis Status: Acute Assessment and plan: * Accelerated hypertension with Hypertensive crisis and congestive heart failure- clinically improving post hemodialysis. Wean nicardipine drip, restart home meds. Optimize hypertension management per nephrology * Acute pulmonary edema secondary to hypertensive crisis and volume overload - status post emergent HD per nephrology * ESRD on HD * Probable pneumonia in the setting of fever, cough, elevated pro calcitonin 0.93. On antibiotic coverage. Await workup including sputum cultures/blood cultures/Legionella and Mycoplasma serology. Start empiric antibiotic coverage and de-escalate based on sensitivities. * History of right renal hematoma-now organizing fibrosis on ultrasound. * Full code * Prophylaxis heparin Plan * Wean nicardipine drip * Hypertension/dialysis management per nephrology * De-escalate antibiotics based on cultures * Repeat chest imaging in 24 hours Current Visit: Yes
[2018-10-29] MEDS ORDERED: niCARdipine 25 MG in 0.9 % SODIUM CHLORIDE 240 ML IV PRN (14:30)
[2018-10-29] MEDS ORDERED: SENNOSIDES/DOCUSATE SODIUM 1 TAB TABLET PO SCH (21:00)
[2018-10-30] MEDS: ACETAMINOPHEN 325 MG TABLET PO PRN (02:24)
[2018-10-30 05:13] LABS: Hemoglobin 11.2 g/dL (12.0-15.0); Mean Cell Volume 86.7 fL (80.0-100.0); Mean Corpuscular HGB Conc 31.9 g/dL (31.0-36.0); Mean Platelet Volume 8.6 fL (7.4-10.4); Platelet Count 181 K/mcL (140-440); RBC 4.03 M/mcL (4.00-5.20); Red Cell Distribution Width 18.6 % (11.5-14.5); WBC 4.1 K/mcL (4.5-11.0)
[2018-10-30] MEDS: 0.9 % SODIUM CHLORIDE 10 ML SYRINGE IV SCH ×3 (05:28→23:49)
[2018-10-30 05:37] LABS: ALT/SGPT 6 U/l (0-40); AST/SGOT 10 U/l (0-37); Albumin 3.2 gm/dL (3.2-5.2); Albumin/Globulin Ratio 1.1 (1.0-2.3); Alkaline Phosphatase 128 U/L (39-117); Bilirubin,Direct 0.3 mg/dL (0.0-0.3); Bilirubin,Total 0.9 mg/dL (0.0-1.0); Blood Urea Nitrogen 26 mg/dl (6-20); Calcium 8.2 mg/dl (8.6-10.4); Carbon Dioxide 27 mmol/L (22-30); Chloride 94 mmol/L (96-108); Glomerular Filtration Rate 12; Glucose 154 mg/dL (70-105); Lactate Dehydrogenase 169 U/L (94-250); Phosphorous 2.9 mg/dL (2.7-4.5); Sodium 134 mmol/L (133-145); Triglycerides 78 mg/dl (<150); Uric Acid 3.3 mg/dL (2.5-8.0)
[2018-10-30 06:21] LABS: Anisocytosis 1+ (NONE SEEN); Basophils % (Manual) 1 % (0-2); Eosinophils % (Manual) 3 % (0-7); Lymphocytes % 9 % (15-49); Monocytes % (Manual) 12 % (1-12); Platelet Estimate NORMAL (NORMAL); RBC Morphology ABNORM (NORMAL); Reactive Lymphocytes 1 % (0-2); Segmented Neutrophils % 74 % (38-78)
--- NOTE | 2018-10-30 08:07 | Nephrology Progress Note ---
Subjective Patient information: Note initiated : 10/30/18 at 8:04 am Patient: Carlene Maddox 48 y/o F admitted on 10/28/18 for sob, nauseous. Chief Complaint: Shortness of breath Pertinent ROS: Still coughs, but better. Shortness of breath, improved. Weakness. Objective - Vital Signs Vital signs: Vital Signs Temp Pulse Resp BP Pulse Ox 10/30/18 04:05 79 26 H 94 10/30/18 04:00 98.7 F 77 25 H 153/78 92 10/30/18 03:00 29 H 149/72 10/30/18 02:48 82 93 10/30/18 02:01 90 31 H 161/78 95 10/30/18 02:00 95 10/30/18 01:01 75 26 H 149/79 94 10/30/18 00:02 79 27 H 134/62 89 L 10/29/18 23:01 78 29 H 144/74 94 10/29/18 22:01 79 26 H 134/61 94 10/29/18 21:01 81 24 H 146/73 94 10/29/18 20:01 98.9 F 80 30 H 127/54 92 10/29/18 19:50 96 10/29/18 19:01 81 32 H 130/63 91 10/29/18 18:44 98.9 F 10/29/18 18:01 92 H 26 H 156/87 95 10/29/18 17:00 82 36 H 145/69 93 10/29/18 16:01 87 36 H 92 10/29/18 16:00 99.1 F H 94 H 16 138/69 96 10/29/18 15:52 90 19 92 10/29/18 15:28 87 23 H 138/69 94 10/29/18 15:00 86 24 H 134/66 91 10/29/18 14:00 84 30 H 135/71 92 10/29/18 13:59 94 H 18 10/29/18 13:50 87 21 137/61 92 10/29/18 12:16 93 H 24 H 150/74 93 10/29/18 12:00 92 H 37 H 167/77 95 10/29/18 11:55 100.8 F H 92 H 167/77 10/29/18 11:45 87 33 H 168/76 95 10/29/18 11:40 87 168/76 10/29/18 11:30 90 33 H 172/76 94 10/29/18 11:25 87 172/76 10/29/18 11:15 88 33 H 169/76 94 10/29/18 11:10 88 169/76 10/29/18 11:00 100 H 30 H 179/78 94 10/29/18 10:55 94 H 179/78 10/29/18 10:45 91 H 35 H 177/82 94 10/29/18 10:40 88 177/82 10/29/18 10:30 90 33 H 179/81 94 10/29/18 10:25 90 179/81 10/29/18 10:15 90 29 H 172/83 94 10/29/18 10:10 89 172/83 10/29/18 10:00 86 30 H 173/79 95 10/29/18 09:55 87 173/79 10/29/18 09:45 87 29 H 172/79 94 10/29/18 09:40 88 172/79 10/29/18 09:31 85 32 H 167/78 95 10/29/18 09:25 87 167/78 10/29/18 09:15 86 33 H 166/76 95 10/29/18 09:10 85 166/76 10/29/18 09:00 86 36 H 160/79 97 10/29/18 08:55 84 160/79 10/29/18 08:45 85 32 H 162/75 95 10/29/18 08:40 88 162/75 10/29/18 08:31 86 37 H 157/80 95 10/29/18 08:25 85 157/80 10/29/18 08:16 88 35 H 160/80 96 10/29/18 08:10 82 160/80 Intake and Output 10/29/18 10/30/18 10/30/18 21:59 05:59 13:59 Intake Total 840 50 Balance 840 50 Intake: IV 50 Zosyn 2.25 gm In Dextrose 5% in 50 Water 50 ml @ 100 mls/hr IV Q12H [facility] Rx#:[id number] Oral 840 Other: Meal Dinner Percent of Meal Consumed 100% # Bowel Movements 1 Weight 167 lb 4.8 oz Intake & Output: Intake & Output 10/29/18 10/30/18 10/30/18 21:59 05:59 13:59 Intake Total 840 50 Balance 840 50 Weight 167 lb 4.8 oz Intake: IV 50 Zosyn 2.25 gm In Dextrose 5% in 50 Water 50 ml @ 100 mls/hr IV Q12H SAROJ Rx#:[id number] Oral 840 Other: Meal Dinner Percent of Meal Consumed 100% # Bowel Movements 1 - General Appearance General appearance: fatigue EENT: mucous membranes dry Neck: supple Respiratory: course breath sounds Cardiology: no edema Gastrointestinal: no tenderness Integumentary: warm and dry Neurologic: no focal deficit, alert and oriented x3 Musculoskeletal: no deformities Psychiatric: mood/affect appropriate, cooperative - Lab 10/30/18 03:29 10/30/18 03:29 Most recent lab results Calcium 8.2 mg/dl (8.6-10.4) L 10/30/18 03:29 Phosphorus 2.9 mg/dL (2.7-4.5) 10/30/18 03:29 Magnesium 2.0 mg/dL (1.6-2.5) 10/30/18 03:29 Assessment and Plan (1) ESRD (end stage renal disease) on dialysis Carlene Maddox is a 48-year-old female with end-stage renal disease on chronic hemodialysis (through right arm AV fistula, at [facility], on [facility]), chronic anemia due to kidney disease, coronary artery disease, diabetes mellitus type 2, hypertension, presented to ED for shortness of breath and cough for the past 5 days and admitted on 10/28/18. End-stage renal disease. Accelerated hypertension, resolved. Fluid overload, improved. Tolerated 4000 ml UF with hemodialysis on 10/30/18. Recent work up: Pulmonary function study on 09/08/18: Mild restrictive pulmonary deficit with a reduced total lung capacity with lower diffusing capacity and the spirometric airflow pattern suggesting increased elastic recoil. Echo on 09/08/18: LVEF 48%, mild global hypokinesis of the left ventricle and mild to moderate concentric left ventricular hypertrophy. Renal US on 10/20/18: 12 cm hematoma in the inferior right perinephric space shows only slight decrease since exam over three months ago. This may represent organizing fibrosis at this point. Consider repeat CT for better evaluation. Plan: Hemodialysis today with UF target of 4000 ml. Status: Chronic Priority: Medium
--- NOTE | 2018-10-30 08:27 | Internal Med Progress Note ---
Medical - PN: Subj Patient information: Note initiated : 10/30/18 at 8:23 am Service Date, if different from initiated Date: [] Patient: Carlene Maddox a 48 y/o F admitted on 10/28/18 for sob, nauseous. Chief Complaint: [] Interval history: Ms. Maddox is a 48 year old F with history of ESRD on hemodialysis who presents to the ER with worsening shortness of breath that involved over the last few days. Patient noted low-grade fever along with productive sputum. She endorses to sick contact as her mother who has been experiencing upper respiratory symptoms for the last week. She denies shaking chills, headache, chest palpitations. Her symptoms progressed to the point that she was barely able to function and has started experiencing dyspnea at rest. Initial workup in the ER was consistent with CHF and volume overload. Patient's systolics over 200. Nephrology was consulted for emergent hemodialysis. Hospitalist service was consulted. Recent echo in October EF 48% At the time evaluation patient is anxious but able to answer most questions. She is a very able talk in full sentences. She denies recent NSAIDs or changes in medications. She started on nicardipine drip She further denies diarrhea dysuria abdominal pain, nausea, vomiting. 10/29- patient admitted to ICU, overnight on antihypertensives drip. Ongoing hemodialysis for flash pulmonary edema. White count 4.6, cultures pending, M AXIMUM TEMPERATURE 101. Minimal discomfort. No telemetry events. Restart on home antihypertensives, weaning nicardipine drip. Repeat chest imaging in 24 hours. 10/30-patient doing well. Systolics around 140. Off antihypertensives strips. Ongoing hemodialysis. Improved dyspnea/hypoxia. No significant telemetry events. No fever chills but persistent productive cough. Cultures negative so far. Mycoplasma IgM negative. Repeat chest imaging pending - Constitutional Vitals: Vital Signs Temp Pulse Resp BP Pulse Ox 98.2 F 78 15 143/81 97 10/30/18 08:02 10/30/18 08:02 10/30/18 07:00 10/30/18 08:02 10/30/18 08:02 Period Temp Pulse Resp BP Sys/Shin Pulse Ox Last 24 Hr 98.2 F-100.8 F 68-100 15-37 127-179/54-87 89-97 Intake and Output 10/29/18 10/30/18 10/30/18 21:59 05:59 13:59 Intake Total 840 50 Balance 840 50 Weight 167 lb 4.8 oz Intake & Output: Intake & Output 10/29/18 10/30/18 10/30/18 21:59 05:59 13:59 Intake Total 840 50 Balance 840 50 Weight 167 lb 4.8 oz Intake: IV 50 Zosyn 2.25 gm In Dextrose 5% in 50 Water 50 ml @ 100 mls/hr IV Q12H SAROJ Rx#:[id number] Oral 840 Other: Meal Dinner Percent of Meal Consumed 100% # Bowel Movements 1 General appearance: no acute distress Exam: Alert oriented No telemetry events No anxiety Ambulating Nonlabored breathing Lymphedema no Medical - PN: Obj Da - Labs CBC & Chem 7: 10/30/18 03:29 10/30/18 03:29 Labs: Abnormal Lab Results 10/30/18 10/30/18 10/29/18 03:29 03:29 03:31 WBC 4.1 L Hgb 11.2 L 11.2 L Hct 35.0 L 35.1 L RDW 18.6 H 17.8 H Gran % Lymph % (Auto) Lymph # (Auto) Lymphocytes % 9 L 12 L RBC Morphology Abnorm A Abnorm A Anisocytosis 1+ A 1+ A Chloride 94 L Anion Gap BUN 26 H Creatinine 4.0 H Glucose 154 H Calcium 8.2 L Total Bilirubin GGT 45 H Alkaline Phosphatase 128 H NT-Pro-B Natriuret Pep Globulin 10/29/18 10/28/18 10/28/18 03:30 19:18 19:18 WBC 4.3 L Hgb Hct RDW 17.8 H Gran % 79.0 H Lymph % (Auto) 10.0 L Lymph # (Auto) 0.4 L Lymphocytes % RBC Morphology Anisocytosis Chloride 93 L 89 L Anion Gap 20.0 H BUN 32 H 27 H Creatinine 4.8 H 4.2 H Glucose 191 H 143 H Calcium Total Bilirubin 1.4 H GGT 45 H Alkaline Phosphatase 137 H 171 H NT-Pro-B Natriuret Pep 73250.0 H Globulin 4.1 H Meds: Medications Acetaminophen (Tylenol) 650 mg PO Q4-6HP PRN PRN Reason: PAIN/FEVER > 101 Last Admin: 10/30/18 02:24 Dose: 650 mg Documented by: Albuterol/Ipratropium (Duoneb) 3 ml NEB Q4HP PRN PRN Reason: Shortness Of Breath Last Admin: 10/29/18 13:27 Dose: 3 ml Documented by: Amlodipine Besylate (Norvasc) 10 mg PO DAILY [facility] Last Admin: 10/29/18 10:51 Dose: 10 mg Documented by: [facility]) [facility] Last Admin: 10/29/18 17:58 Dose: 25 mg Documented by: Diagnostic Test (Pha) (Accu-Chek) 1 each FS TIDAC [facility] Docusate Sodium (Colace) 100 mg PO BID [facility] Last Admin: 10/29/18 21:40 Dose: Not Given Documented by: Guaifenesin (Robitussin Dm) 5 ml PO Q4HP PRN PRN Reason: Cough Last Admin: 10/29/18 21:39 Dose: 5 ml Documented by: Heparin Sodium (Porcine) (Heparin) 5,000 unit SQ Q12 [facility] Last Admin: 10/29/18 21:39 Dose: 5,000 unit Documented by: Hydralazine HCl (Apresoline) 10 - 20 mg IV Q4-6HP PRN PRN Reason: Hypertension Last Admin: 10/29/18 00:25 Dose: 20 mg Documented by: Acetaminophen (Ofirmev) 1,000 mg in 100 mls @ 200 mls/hr IV Q6HP PRN PRN Reason: PAIN/FEVER > 101 Last Infusion: 10/29/18 01:02 Dose: Infused Documented by: Piperacillin Sod/Tazobactam (Sod 2.25 gm/ Dextrose) 50 mls @ 100 mls/hr IV Q12H [facility]; Protocol Last Infusion: 10/29/18 22:18 Dose: Infused Documented by: Nicardipine HCl 25 mg/ Sodium (Chloride) 250 mls @ 50 mls/hr IV Q5HP PRN; Protocol PRN Reason: Hypertension Insulin Human Lispro (Humalog) 0 unit SQ ACHS [facility]; Protocol Ondansetron HCl (Zofran) 4 mg IV Q4-6HP PRN PRN Reason: Nausea And Vomiting Ondansetron HCl (Zofran Odt) 4 mg PO Q6H PRN PRN Reason: nausea and vomiting Sucroferric Oxyhydroxide [ Velphoro] 1,000 Mg Tab 1 dose PO TIDCC [facility] Last Admin: 10/29/18 18:03 Dose: Not Given Documented by: Senna/Docusate Sodium (Senna Plus Tablet) 1 tab PO HS [facility] Last Admin: 10/29/18 21:40 Dose: Not Given Documented by: Sodium Chloride (Saline Flush) 10 ml IV Q8 [facility] Last Admin: 10/30/18 05:28 Dose: 10 ml Documented by: Medical - PN: A/P - Time Spent With Patient Total time spent is greater than 50% in coordination of care (as documented) at patient's floor/unit and/or counseling patient: 25 - 35 minutes (1) Hypertensive crisis Status: Acute Assessment and plan: * Hypertensive crisis secondary to accelerated hypertension with decompensated heart failure- clinically improving post hemodialysis. Off nicardipine drip, now on home meds. Continue hypertension management per nephrology * Acute pulmonary edema secondary to hypertensive crisis and volume overload - status post emergent HD per nephrology. Clinically resolved. Repeat chest imaging * ESRD on HD . * Probable pneumonia in the setting of fever, cough, elevated pro calcitonin 0.93. Clinically improving on antibiotic coverage. Cultures negative so far. De-escalate antibiotic coverage in 24 hours. * History of right renal hematoma-now organizing fibrosis on ultrasound. * Full code * Prophylaxis heparin Plan * Transfer to telemetry * Continue HD per nephrology * De-escalate antibiotics in 24 hours * Chest imaging Current Visit: Yes
[2018-10-30] MEDS: DOCUSATE SODIUM 100 MG CAPSULE PO SCH ×2 (08:49→20:41)
[2018-10-30] MEDS: CARVEDILOL 12.5 MG TABLET PO SCH ×2 (08:49→17:42)
[2018-10-30] MEDS: SUCROFERRIC OXYHYDROXIDE 1000 MG PO SCH ×3 (08:49→18:41)
[2018-10-30] MEDS: HEPARIN 5,000 UNIT/ML VIAL SQ SCH ×2 (08:53→20:54)
[2018-10-30] MEDS: amLODIPine 10 MG TABLET PO SCH (08:53)
[2018-10-30] MEDS: PIPERACILLIN SODIUM/TAZOBACTAM 2.25 GM in DEXTROSE 5% IN WATER 50 ML IV SCH ×2 (08:55→20:53)
[2018-10-30] MEDS ORDERED: IPRATROPIUM/ALBUTEROL 3 ML AMPUL.NEB NEB PRN (09:21)
[2018-10-30] MEDS ORDERED: niCARdipine 25 MG in 0.9 % SODIUM CHLORIDE 240 ML IV PRN (09:21)
[2018-10-30] MEDS ORDERED: ACETAMINOPHEN 325 MG TABLET PO PRN (09:21)
[2018-10-30] MEDS ORDERED: ONDANSETRON 4 MG/2 ML VIAL IV PRN (09:21)
[2018-10-30] MEDS ORDERED: ACETAMINOPHEN 1,000 MG/100 ML BOTTLE IV PRN (09:21)
[2018-10-30] MEDS ORDERED: hydrALAZINE 20 MG/ML VIAL IV PRN (09:21)
[2018-10-30] MEDS ORDERED: ONDANSETRON 4 MG ODT TABLET PO PRN (09:21)
--- NOTE | 2018-10-30 10:13 | XRay Report ---
HISTORY: Pneumonia, cough and shortness of breath FINDINGS: There are mildly prominent increased interstitial lung markings bilaterally. Lung volumes are normal. There is no consolidating infiltrate, mass or pleural effusion. Heart is borderline enlarged. There is no evidence of adenopathy. Comparison with the prior exam from 10/28/18 shows no significant change. IMPRESSION: mild generalized interstitial lung disease. This is nonspecific and could be due to an inflammatory process such as pneumonia, noninfectious inflammatory reaction or mild congestive heart failure. . Interpreted and Authenticated by: Rock Hendricks 10/30/18
[2018-10-30] MEDS: INSULIN LISPRO 1 UNIT/0.01 ML UNIT SQ SCH ×3 (11:30→20:54)
[2018-10-30] MEDS ORDERED: INSULIN LISPRO 1 UNIT/0.01 ML UNIT SQ SCH (11:30)
[2018-10-30] MEDS: guaiFENesin/DEXTROMETHORPHAN ORAL SOL PO PRN ×2 (14:16→14:18)
[2018-10-30] MEDS ORDERED: HYDROcodone/APAP 5/325MG TABLET PO SCH (17:08)
[2018-10-30] MEDS: BENZONATATE 100 MG CAPSULE PO PRN (18:41)
[2018-10-30] MEDS: HYDROcodone/APAP 5/325MG TABLET PO PRN (18:41)
[2018-10-30] MEDS: SENNOSIDES/DOCUSATE SODIUM 1 TAB TABLET PO SCH (20:41)
--- NOTE | 2018-10-31 05:53 | Nephrology Progress Note ---
Subjective Patient information: Note initiated : 10/31/18 at 5:50 am Patient: Carlene Maddox 48 y/o F admitted on 10/28/18 for sob, nauseous. Chief Complaint: Cough Pertinent ROS: Cough persistent Shortness of breath improved Weakness improved No edema Objective - Vital Signs Vital signs: Vital Signs Temp Pulse Resp BP Pulse Ox 10/31/18 04:00 98.4 F 18 140/80 95 10/31/18 00:00 98.4 F 68 16 136/78 94 10/30/18 20:00 98.4 F 78 18 128/70 98 10/30/18 16:00 98.3 F 76 16 128/67 95 10/30/18 14:30 98.7 F 76 143/70 10/30/18 14:15 81 144/63 10/30/18 14:00 76 138/70 10/30/18 13:45 75 139/72 10/30/18 13:30 79 139/68 10/30/18 13:15 78 141/69 10/30/18 13:01 138/67 10/30/18 13:00 72 138/67 10/30/18 12:45 76 143/75 10/30/18 12:30 70 140/73 10/30/18 12:15 72 136/72 10/30/18 12:00 72 136/69 10/30/18 11:45 97.8 F 72 16 136/69 97 10/30/18 11:30 77 139/69 10/30/18 11:15 71 138/70 10/30/18 11:00 72 141/79 10/30/18 10:45 70 145/76 10/30/18 10:30 98 F 69 149/75 10/30/18 08:02 98.2 F 78 143/81 97 10/30/18 08:00 97 10/30/18 07:00 71 15 136/64 93 10/30/18 06:00 68 22 137/69 94 Intake and Output 10/30/18 10/30/18 10/31/18 13:59 21:59 05:59 Intake Total 360 945 Output Total 4050 Balance 360 -3105 Intake: IV 100 Oral 360 845 Output: Hemodialysis UF 4050 Other: Meal Breakfast Dinner Percent of Meal Consumed 100% 100% # Bowel Movements 1 1 1 Weight 166 lb Patient Weight 10/31/18 05:59 Weight 166 lb Intake & Output: Intake & Output 10/30/18 10/30/18 10/31/18 13:59 21:59 05:59 Intake Total 360 945 Output Total 4050 Balance 360 -3105 Weight 166 lb Intake: IV 100 Oral 360 845 Output: Hemodialysis UF 4050 Other: Meal Breakfast Dinner Percent of Meal Consumed 100% 100% # Bowel Movements 1 1 1 - General Appearance General appearance: fatigue EENT: mucous membranes dry Neck: supple Respiratory: course breath sounds Cardiology: no edema Gastrointestinal: no tenderness Integumentary: no rash, warm and dry Neurologic: no focal deficit, alert and oriented x3 Musculoskeletal: no deformities, warmth Psychiatric: mood/affect appropriate, cooperative - Lab 10/31/18 04:30 10/31/18 04:30 Most recent lab results Calcium 8.2 mg/dl (8.6-10.4) L 10/30/18 03:29 Phosphorus 2.9 mg/dL (2.7-4.5) 10/30/18 03:29 Magnesium 2.0 mg/dL (1.6-2.5) 10/30/18 03:29 Assessment and Plan (1) ESRD (end stage renal disease) on dialysis Carlene Maddox is a 48-year-old female with end-stage renal disease on chronic hemodialysis (through right arm AV fistula, at [facility], on MWF), chronic anemia due to kidney disease, coronary artery disease, diabetes mellitus type 2, hypertension, presented to ED for shortness of breath and cough for the past 5 days and admitted on 10/28/18. End-stage renal disease. Accelerated hypertension, resolved. Fluid overload, improved s/p 4000 ml UF with hemodialysis on 10/30/18 and 4000 ml UF with hemodialysis on 10/31/18. Recent work up: Pulmonary function study on 09/08/18: Mild restrictive pulmonary deficit with a reduced total lung capacity with lower diffusing capacity and the spirometric airflow pattern suggesting increased elastic recoil. Echo on 09/08/18: LVEF 48%, mild global hypokinesis of the left ventricle and mild to moderate concentric left ventricular hypertrophy. Renal US on 10/20/18: 12 cm hematoma in the inferior right perinephric space shows only slight decrease since exam over three months ago. This may represent organizing fibrosis at this point. Consider repeat CT for better evaluation. Plan: Next hemodialysis tomorrow as inpatient or outpatient. Status: Chronic Priority: Medium
[2018-10-31] MEDS: 0.9 % SODIUM CHLORIDE 10 ML SYRINGE IV SCH ×3 (06:00→21:09)
[2018-10-31 07:03] LABS: Hematocrit 36.6 % (36.0-48.0); Hemoglobin 11.6 g/dL (12.0-15.0); Mean Corpuscular HGB Conc 31.7 g/dL (31.0-36.0); Mean Platelet Volume 8.4 fL (7.4-10.4); Platelet Count 202 K/mcL (140-440); RBC 4.21 M/mcL (4.00-5.20); WBC 4.4 K/mcL (4.5-11.0)
[2018-10-31 07:34] LABS: ALT/SGPT 7 U/l (0-40); AST/SGOT 17 U/l (0-37); Albumin 3.1 gm/dL (3.2-5.2); Alkaline Phosphatase 132 U/L (39-117); Bilirubin,Direct < 0.2 mg/dL (0.0-0.3); Bilirubin,Total 0.6 mg/dL (0.0-1.0); Blood Urea Nitrogen 20 mg/dl (6-20); Calcium 8.6 mg/dl (8.6-10.4); Carbon Dioxide 26 mmol/L (22-30); Chloride 93 mmol/L (96-108); Globulin 3.1 gm/dL (2.2-3.7); Glomerular Filtration Rate 16; Glucose 118 mg/dL (70-105); Lactate Dehydrogenase 213 U/L (94-250); Phosphorous 2.9 mg/dL (2.7-4.5); Potassium 4.1 mmol/L (3.3-5.1); Sodium 130 mmol/L (133-145); Triglycerides 122 mg/dl (<150); Uric Acid 3.1 mg/dL (2.5-8.0)
[2018-10-31] MEDS: INSULIN LISPRO 1 UNIT/0.01 ML UNIT SQ SCH ×4 (07:50→21:10)
[2018-10-31] MEDS: CARVEDILOL 12.5 MG TABLET PO SCH ×2 (07:56→17:14)
[2018-10-31] MEDS: DOCUSATE SODIUM 100 MG CAPSULE PO SCH ×2 (07:57→21:09)
[2018-10-31] MEDS: amLODIPine 10 MG TABLET PO SCH (07:57)
[2018-10-31] MEDS: SUCROFERRIC OXYHYDROXIDE 1000 MG PO SCH ×3 (07:57→17:11)
[2018-10-31] MEDS: HEPARIN 5,000 UNIT/ML VIAL SQ SCH ×2 (07:58→21:05)
[2018-10-31] MEDS: guaiFENesin/DEXTROMETHORPHAN ORAL SOL PO PRN ×3 (07:59→19:38)
[2018-10-31] MEDS: BENZONATATE 100 MG CAPSULE PO PRN ×2 (08:02→15:55)
[2018-10-31 08:12] LABS: Anisocytosis 1+ (NONE SEEN); Eosinophils % (Manual) 11 % (0-7); Lymphocytes % 16 % (15-49); Monocytes % (Manual) 6 % (1-12); Platelet Estimate NORMAL (NORMAL); RBC Morphology ABNORM (NORMAL); Reactive Lymphocytes 1 % (0-2); Segmented Neutrophils % 66 % (38-78)
[2018-10-31] MEDS: PIPERACILLIN SODIUM/TAZOBACTAM 2.25 GM in DEXTROSE 5% IN WATER 50 ML IV SCH (08:32)
--- NOTE | 2018-10-31 12:29 | Internal Med Progress Note ---
Medical - PN: Subj Patient information: Note initiated : 10/31/18 at 12:25 pm Service Date, if different from initiated Date: [] Patient: Carlene Maddox a 48 y/o F admitted on 10/28/18 for sob, nauseous. Chief Complaint: [] Interval history: Ms. Maddox is a 48 year old F with history of ESRD on hemodialysis who presents to the ER with worsening shortness of breath that involved over the last few days. Patient noted low-grade fever along with productive sputum. She endorses to sick contact as her mother who has been experiencing upper respiratory symptoms for the last week. She denies shaking chills, headache, chest palpitations. Her symptoms progressed to the point that she was barely able to function and has started experiencing dyspnea at rest. Initial workup in the ER was consistent with CHF and volume overload. Patient's systolics over 200. Nephrology was consulted for emergent hemodialysis. Hospitalist service was consulted. Recent echo in October EF 48% At the time evaluation patient is anxious but able to answer most questions. She is a very able talk in full sentences. She denies recent NSAIDs or changes in medications. She started on nicardipine drip She further denies diarrhea dysuria abdominal pain, nausea, vomiting. 10/29- patient admitted to ICU, overnight on antihypertensives drip. Ongoing hemodialysis for flash pulmonary edema. White count 4.6, cultures pending, MAXIMUM TEMPERATURE 101. Minimal discomfort. No telemetry events. Restart on home antihypertensives, weaning nicardipine drip. Repeat chest imaging in 24 hours. 10/30-patient doing well. Systolics around 140. Off antihypertensives strips. Ongoing hemodialysis. Improved dyspnea/hypoxia. No significant telemetry events. No fever chills but persistent productive cough. Cultures negative so far. Mycoplasma IgM negative. Repeat chest imaging pending 10/31- patient doing better however persistent cough. No overnight events including fever chills nausea vomiting or telemetry events. No concerns per staff. Hemodialysis ongoing. Blood pressures improved control. No leukocytosis. Ongoing PT OT/nutrition support. Possible discharge in 24 hours if continues to improve clinically. - Constitutional Vitals: Vital Signs Temp Pulse Resp BP Pulse Ox 97.6 F 70 16 135/70 96 10/31/18 06:50 10/31/18 06:50 10/31/18 06:50 10/31/18 06:50 10/31/18 06:50 Period Temp Pulse Resp BP Sys/Shin Pulse Ox Last 24 Hr 97.6 F-98.7 F 68-81 16-18 128-144/63-80 94-98 Intake and Output 10/30/18 10/31/18 10/31/18 21:59 05:59 13:59 Intake Total 995 290 Output Total 4050 Balance -3055 290 Weight 166 lb Intake & Output: Intake & Output 10/30/18 10/31/18 10/31/18 21:59 05:59 13:59 Intake Total 995 290 Output Total 4050 Balance -3055 290 Weight 166 lb Intake: IV 150 50 Zosyn 2.25 gm In Dextrose 5% in 50 50 Water 50 ml @ 100 mls/hr IV Q12H SAROJ Rx#:[id number] Oral 845 240 Output: Hemodialysis UF 4050 Other: Meal Dinner Breakfast Percent of Meal Consumed 100% 100% Feeding Ability Assist with Tray Set Up # Bowel Movements 1 1 General appearance: no acute distress Exam: Alert oriented Nonlabored breathing No anxiety Nondistended abdomen No lymphedema Medical - PN: Obj Da - Labs CBC & Chem 7: 10/31/18 04:30 10/31/18 04:30 Labs: Abnormal Lab Results 10/31/18 10/31/18 10/30/18 04:30 04:30 03:29 WBC 4.4 L Hgb 11.6 L Hct RDW 18.0 H Gran % Lymph % (Auto) Lymph # (Auto) Lymphocytes % Eosinophils % (Manual) 11 H RBC Morphology Abnorm A Anisocytosis 1+ A Sodium 130 L Chloride 93 L 94 L Anion Gap BUN 26 H Creatinine 3.3 H 4.0 H Glucose 118 H 154 H Calcium 8.2 L Total Bilirubin GGT 50 H 45 H Alkaline Phosphatase 132 H 128 H NT-Pro-B Natriuret Pep Albumin 3.1 L Globulin 10/30/18 10/29/18 10/29/18 03:29 03:31 03:30 WBC 4.1 L Hgb 11.2 L 11.2 L Hct 35.0 L 35.1 L RDW 18.6 H 17.8 H Gran % Lymph % (Auto) Lymph # (Auto) Lymphocytes % 9 L 12 L Eosinophils % (Manual) RBC Morphology Abnorm A Abnorm A Anisocytosis 1+ A 1+ A Sodium Chloride 93 L Anion Gap BUN 32 H Creatinine 4.8 H Glucose 191 H Calcium Total Bilirubin GGT 45 H Alkaline Phosphatase 137 H NT-Pro-B Natriuret Pep Albumin Globulin 10/28/18 10/28/18 19:18 19:18 WBC 4.3 L Hgb Hct RDW 17.8 H Gran % 79.0 H Lymph % (Auto) 10.0 L Lymph # (Auto) 0.4 L Lymphocytes % Eosinophils % (Manual) RBC Morphology Anisocytosis Sodium Chloride 89 L Anion Gap 20.0 H BUN 27 H Creatinine 4.2 H Glucose 143 H Calcium Total Bilirubin 1.4 H GGT Alkaline Phosphatase 171 H NT-Pro-B Natriuret Pep 97547.0 H Albumin Globulin 4.1 H Meds: Medications Acetaminophen (Tylenol) 650 mg PO Q4-6HP PRN PRN Reason: PAIN/FEVER > 101 Hydrocodone Bitart/Acetaminophen ([place] 5/325mg) 0.5 tab PO Q8HP PRN PRN Reason: PAIN LEVEL 3-6 Last Admin: 10/30/18 18:41 Dose: 0.5 tab Documented by: Albuterol/Ipratropium (Duoneb) 3 ml NEB Q4HP PRN PRN Reason: Shortness Of Breath Amlodipine Besylate (Norvasc) 10 mg PO DAILY [facility] Last Admin: 10/31/18 07:57 Dose: 10 mg Documented by: Benzonatate (Tessalon) 200 mg PO TIDP PRN PRN Reason: Cough Last Admin: 10/31/18 08:02 Dose: 200 mg Documented by: [facility]) [facility] Last Admin: 10/31/18 07:56 Dose: 25 mg Documented by: Diagnostic Test (Pha) (Accu-Chek) 1 each FS TIDAC [facility] Last Admin: 10/31/18 11:44 Dose: 1 each Documented by: Docusate Sodium (Colace) 100 mg PO BID [facility] Last Admin: 10/31/18 07:57 Dose: Not Given Documented by: Guaifenesin (Robitussin Dm) 5 ml PO Q4HP PRN PRN Reason: Cough Last Admin: 10/30/18 14:18 Dose: 5 ml Documented by: Heparin Sodium (Porcine) (Heparin) 5,000 unit SQ Q12 [facility] Last Admin: 10/31/18 07:58 Dose: 5,000 unit Documented by: Hydralazine HCl (Apresoline) 10 - 20 mg IV Q4-6HP PRN PRN Reason: Hypertension Nicardipine HCl 25 mg/ Sodium (Chloride) 250 mls @ 50 mls/hr IV Q5HP PRN; Protocol PRN Reason: Hypertension Acetaminophen (Ofirmev) 1,000 mg in 100 mls @ 200 mls/hr IV Q6HP PRN PRN Reason: PAIN/FEVER > 101 Last Infusion: 10/30/18 15:20 Dose: Infused Documented by: Piperacillin Sod/Tazobactam (Sod 2.25 gm/ Dextrose) 50 mls @ 100 mls/hr IV Q12H [facility]; Protocol Last Infusion: 10/31/18 09:05 Dose: Infused Documented by: Insulin Human Lispro (Humalog) 0 unit SQ ACHS [facility]; Protocol Last Admin: 10/31/18 12:14 Dose: Not Given Documented by: Ondansetron HCl (Zofran) 4 mg IV Q4-6HP PRN PRN Reason: Nausea And Vomiting Ondansetron HCl (Zofran Odt) 4 mg PO Q6H PRN PRN Reason: nausea and vomiting Sucroferric Oxyhydroxide [ Velphoro] 1,000 Mg Tab 1 dose PO TIDCC [facility] Last Admin: 10/31/18 12:14 Dose: Not Given Documented by: Senna/Docusate Sodium (Senna Plus Tablet) 1 tab PO HS [facility] Last Admin: 10/30/18 20:41 Dose: Not Given Documented by: Sodium Chloride (Saline Flush) 10 ml IV Q8 [facility] Last Admin: 10/31/18 06:00 Dose: 10 ml Documented by: Medical - PN: A/P - Time Spent With Patient Total time spent is greater than 50% in coordination of care (as documented) at patient's floor/unit and/or counseling patient: 15 - 24 minutes (1) Hypertensive crisis Status: Acute Assessment and plan: * Interstitial pneumonia- Clinically improving on antibiotic coverage. Cultures negative so far. Switch to oral Levaquin * Hypertensive crisis with decompensated heart failure- clinically improved. Off nicardipine drip, now on home meds. * Acute pulmonary edema secondary to hypertensive crisis and volume overload - status post emergent HD per nephrology. Clinically resolved. Repeat chest imaging * ESRD on HD managed per nephrology * History of right renal hematoma-now organizing fibrosis on ultrasound. * Full code * Prophylaxis heparin Plan * Switch to oral Levaquin * Possible discharge in 24 hours * Continue PT OT nutrition support * Continue HD per nephrology Current Visit: Yes
[2018-10-31] MEDS ORDERED: LEVOFLOXACIN 500 MG TABLET PO SCH (12:30)
[2018-10-31] MEDS: HYDROcodone/APAP 5/325MG TABLET PO PRN (13:20)
[2018-10-31] MEDS: SENNOSIDES/DOCUSATE SODIUM 1 TAB TABLET PO SCH (21:08)
[2018-11-01 06:14] LABS: Hematocrit 36.7 % (36.0-48.0); Hemoglobin 11.6 g/dL (12.0-15.0); Mean Cell Volume 86.3 fL (80.0-100.0); Mean Corpuscular HGB Conc 31.7 g/dL (31.0-36.0); Mean Platelet Volume 8.3 fL (7.4-10.4); Platelet Count 240 K/mcL (140-440); RBC 4.26 M/mcL (4.00-5.20); Red Cell Distribution Width 17.6 % (11.5-14.5); WBC 4.6 K/mcL (4.5-11.0)
[2018-11-01 06:24] LABS: ALT/SGPT 7 U/l (0-40); AST/SGOT 11 U/l (0-37); Albumin 3.2 gm/dL (3.2-5.2); Alkaline Phosphatase 150 U/L (39-117); Bilirubin,Direct < 0.2 mg/dL (0.0-0.3); Bilirubin,Total 0.4 mg/dL (0.0-1.0); Blood Urea Nitrogen 43 mg/dl (6-20); Calcium 8.8 mg/dl (8.6-10.4); Carbon Dioxide 24 mmol/L (22-30); Chloride 91 mmol/L (96-108); Globulin 3.2 gm/dL (2.2-3.7); Glomerular Filtration Rate 10; Glucose 130 mg/dL (70-105); Lactate Dehydrogenase 259 U/L (94-250); Magnesium 2.1 mg/dL (1.6-2.5); Phosphorous 4.1 mg/dL (2.7-4.5); Potassium 4.3 mmol/L (3.3-5.1); Sodium 129 mmol/L (133-145); Triglycerides 137 mg/dl (<150); Uric Acid 5.4 mg/dL (2.5-8.0)
--- NOTE | 2018-11-01 06:28 | Nephrology Progress Note ---
Subjective Patient information: Note initiated : 11/01/18 at 6:26 am Patient: Carlene Maddox a 48 y/o F admitted on 10/28/18 for sob, nauseous. Chief Complaint: Cough. Pertinent ROS: Persistent cough Shortness of breath Weakness No edema Anuric Objective - Vital Signs Vital signs: Vital Signs Temp Pulse Resp BP Pulse Ox 11/01/18 03:43 97.7 F 77 20 143/75 96 10/31/18 23:39 97.4 F 74 20 145/78 97 10/31/18 19:19 97.5 F 77 16 132/72 97 10/31/18 16:00 97.8 F 16 132/71 96 10/31/18 12:00 98.0 F 84 18 133/68 97 10/31/18 06:50 97.6 F 70 16 135/70 96 Intake and Output 10/31/18 11/01/18 11/01/18 21:59 05:59 13:59 Intake Total 120 360 Output Total 0 Balance 120 360 Intake: Oral 120 360 Output: Void Amount 0 Other: Weight 164 lb 8 oz Intake & Output: Intake & Output 10/31/18 11/01/18 11/01/18 21:59 05:59 13:59 Intake Total 120 360 Output Total 0 Balance 120 360 Weight 164 lb 8 oz Intake: Oral 120 360 Output: Void Amount 0 - General Appearance General appearance: fatigue EENT: mucous membranes moist Neck: supple Respiratory: course breath sounds Cardiology: no edema Gastrointestinal: no tenderness Integumentary: warm and dry Neurologic: no focal deficit, alert and oriented x3 Musculoskeletal: no deformities Psychiatric: mood/affect appropriate, cooperative - Lab 11/01/18 04:10 11/01/18 04:10 Most recent lab results Calcium 8.8 mg/dl (8.6-10.4) 11/01/18 04:10 Phosphorus 4.1 mg/dL (2.7-4.5) 11/01/18 04:10 Magnesium 2.1 mg/dL (1.6-2.5) 11/01/18 04:10 Assessment and Plan (1) ESRD (end stage renal disease) on dialysis Carlene Maddox is a 48-year-old female with end-stage renal disease on chronic hemodialysis (through right arm AV fistula, at [facility], on MWF), chronic anemia due to kidney disease, coronary artery disease, diabetes mellitus type 2, hypertension, presented to ED for shortness of breath and cough for the past 5 days and admitted on 10/28/18. End-stage renal disease. Accelerated hypertension, resolved. Fluid overload, improved s/p 4000 ml UF with hemodialysis on 10/30/18 and 4000 ml UF with hemodialysis on 10/31/18. Recent work up: Pulmonary function study on 09/08/18: Mild restrictive pulmonary deficit with a reduced total lung capacity with lower diffusing capacity and the spirometric airflow pattern suggesting increased elastic recoil. Echo on 09/08/18: LVEF 48%, mild global hypokinesis of the left ventricle and mild to moderate concentric left ventricular hypertrophy. Renal US on 10/20/18: 12 cm hematoma in the inferior right perinephric space shows only slight decrease since exam over three months ago. This may represent organizing fibrosis at this point. Consider repeat CT for better evaluation. Plan: Hemodialysis today as inpatient. Status: Chronic Priority: Medium
[2018-11-01] MEDS: INSULIN LISPRO 1 UNIT/0.01 ML UNIT SQ SCH ×4 (07:45→20:48)
[2018-11-01] MEDS: 0.9 % SODIUM CHLORIDE 10 ML SYRINGE IV SCH ×3 (07:46→20:50)
--- NOTE | 2018-11-01 08:13 | Nephrology Progress Note ---
Subjective Patient information: Note initiated : 11/01/18 at 8:12 am Service Date, if different from initiated Date: [] Patient: Carlene Maddox a 48 y/o F admitted on 10/28/18 for sob, nauseous. Chief Complaint: [] Objective - Vital Signs Vital signs: Vital Signs Temp Pulse Resp BP Pulse Ox 11/01/18 07:00 97.9 F 71 16 146/76 96 11/01/18 03:43 97.7 F 77 20 143/75 96 10/31/18 23:39 97.4 F 74 20 145/78 97 10/31/18 19:19 97.5 F 77 16 132/72 97 10/31/18 16:00 97.8 F 16 132/71 96 10/31/18 12:00 98.0 F 84 18 133/68 97 Intake and Output 10/31/18 11/01/18 11/01/18 21:59 05:59 13:59 Intake Total 120 360 Output Total 0 Balance 120 360 Intake: Oral 120 360 Output: Void Amount 0 Other: Weight 164 lb 8 oz Intake & Output: Intake & Output 10/31/18 11/01/18 11/01/18 21:59 05:59 13:59 Intake Total 120 360 Output Total 0 Balance 120 360 Weight 164 lb 8 oz Intake: Oral 120 360 Output: Void Amount 0 - Lab 11/01/18 04:10 11/01/18 04:10 Most recent lab results Calcium 8.8 mg/dl (8.6-10.4) 11/01/18 04:10 Phosphorus 4.1 mg/dL (2.7-4.5) 11/01/18 04:10 Magnesium 2.1 mg/dL (1.6-2.5) 11/01/18 04:10 Assessment and Plan (1) ESRD (end stage renal disease) on dialysis Carlene Maddox is a 48-year-old female with end-stage renal disease on chronic hemodialysis (through right arm AV fistula, at [facility], on MWF), chronic anemia due to kidney disease, coronary artery disease, diabetes mellitus type 2, hypertension, presented to ED for shortness of breath and cough for the past 5 days and admitted on 10/28/18. End-stage renal disease. Accelerated hypertension, resolved. Fluid overload, improved s/p 4000 ml UF with hemodialysis on 10/30/18 and 4000 ml UF with hemodialysis on 10/31/18. Recent work up: Pulmonary function study on 09/08/18: Mild restrictive pulmonary deficit with a reduced total lung capacity with lower diffusing capacity and the spirometric airflow pattern suggesting increased elastic recoil. Echo on 09/08/18: LVEF 48%, mild global hypokinesis of the left ventricle and mild to moderate concentric left ventricular hypertrophy. Renal US on 10/20/18: 12 cm hematoma in the inferior right perinephric space shows only slight decrease since exam over three months ago. This may represent organizing fibrosis at this point. Consider repeat CT for better evaluation. Plan: Hemodialysis today as inpatient. Status: Chronic Priority: Medium
[2018-11-01] MEDS: HEPARIN 5,000 UNIT/ML VIAL SQ SCH ×2 (08:30→20:48)
[2018-11-01] MEDS: amLODIPine 10 MG TABLET PO SCH (08:30)
[2018-11-01] MEDS: CARVEDILOL 12.5 MG TABLET PO SCH ×2 (08:30→17:08)
[2018-11-01] MEDS: BENZONATATE 100 MG CAPSULE PO PRN (08:30)
[2018-11-01] MEDS: DOCUSATE SODIUM 100 MG CAPSULE PO SCH ×2 (08:31→20:47)
[2018-11-01] MEDS: SUCROFERRIC OXYHYDROXIDE 1000 MG PO SCH ×3 (08:31→18:42)
[2018-11-01] MEDS: guaiFENesin/DEXTROMETHORPHAN ORAL SOL PO PRN (08:37)
[2018-11-01 10:11] LABS: Anisocytosis 1+ (NONE SEEN); Eosinophils % (Manual) 9 % (0-7); Lymphocytes % 25 % (15-49); Monocytes % (Manual) 9 % (1-12); Nucleated Red Blood Cells 2 % (0-0); Platelet Estimate NORMAL (NORMAL); RBC Morphology ABNORM (NORMAL); Segmented Neutrophils % 57 % (38-78)
[2018-11-01] MEDS ORDERED: HYDROcodone/APAP 5/325MG TABLET PO PRN (13:05)
[2018-11-01] MEDS ORDERED: ONDANSETRON 4 MG/2 ML VIAL IV PRN (13:05)
[2018-11-01] MEDS ORDERED: guaiFENesin/DEXTROMETHORPHAN ORAL SOL PO PRN (13:05)
[2018-11-01] MEDS ORDERED: ACETAMINOPHEN 1,000 MG/100 ML BOTTLE IV PRN (13:05)
[2018-11-01] MEDS ORDERED: BENZONATATE 100 MG CAPSULE PO PRN (13:05)
[2018-11-01] MEDS ORDERED: ONDANSETRON 4 MG ODT TABLET PO PRN ×2 (13:05→13:45)
[2018-11-01] MEDS ORDERED: IPRATROPIUM/ALBUTEROL 3 ML AMPUL.NEB NEB PRN (13:05)
[2018-11-01] MEDS ORDERED: hydrALAZINE 20 MG/ML VIAL IV PRN (13:05)
[2018-11-01] MEDS: ACETAMINOPHEN 325 MG TABLET PO PRN (13:11)
--- NOTE | 2018-11-01 14:39 | Internal Med Progress Note ---
Medical - PN: Subj Patient information: Note initiated : 11/01/18 at 2:36 pm Service Date, if different from initiated Date: [] Patient: Carlene Maddox a 48 y/o F admitted on 10/28/18 for sob, nauseous. Chief Complaint: [] Interval history: Ms. Maddox is a 48 year old F with history of ESRD on hemodialysis who presents to the ER with worsening shortness of breath that involved over the last few days. Patient noted low-grade fever along with productive sputum. She endorses to sick contact as her mother who has been experiencing upper respiratory symptoms for the last week. She denies shaking chills, headache, chest palpitations. Her symptoms progressed to the point that she was barely able to function and has started experiencing dyspnea at rest. Initial workup in the ER was consistent with CHF and volume overload. Patient's systolics over 200. Nephrology was consulted for emergent hemodialysis. Hospitalist service was consulted. Recent echo in October EF 48% At the time evaluation patient is anxious but able to answer most questions. She is a very able talk in full sentences. She denies recent NSAIDs or changes in medications. She started on nicardipine drip She further denies diarrhea dysuria abdominal pain, nausea, vomiting. 10/29- patient admitted to ICU, overnight on antihypertensives drip. Ongoing hemodialysis for flash pulmonary edema. White count 4.6, cultures pending, M AXIMUM TEMPERATURE 101. Minimal discomfort. No telemetry events. Restart on home antihypertensives, weaning nicardipine drip. Repeat chest imaging in 24 hours. 10/30-patient doing well. Systolics around 140. Off antihypertensives strips. Ongoing hemodialysis. Improved dyspnea/hypoxia. No significant telemetry events. No fever chills but persistent productive cough. Cultures negative so far. Mycoplasma IgM negative. Repeat chest imaging pending 10/31- patient doing better however persistent cough. No overnight events including fever chills nausea vomiting or telemetry events. No concerns per staff. Hemodialysis ongoing. Blood pressures improved control. No leukocytosis. Ongoing PT OT/nutrition support. 11/01-patient doing remarkably better. Anticipate discharge in 24 hours. Ongoing hemodialysis per nephrology. No overnight fever chills. Stable labs and hemodynamics. Continue PT OT/nutrition support. - Constitutional Vitals: Vital Signs Temp Pulse Resp BP Pulse Ox 97.4 F 87 18 126/71 94 11/01/18 11:58 11/01/18 14:06 11/01/18 11:58 11/01/18 14:06 11/01/18 11:58 Period Temp Pulse Resp BP Sys/Shin Pulse Ox Last 24 Hr 97.4 F-97.9 F 69-87 16-20 123-149/59-85 94-97 Intake and Output 11/01/18 11/01/18 11/01/18 05:59 13:59 21:59 Intake Total 360 Output Total 0 Balance 360 Weight 164 lb 8 oz Intake & Output: Intake & Output 11/01/18 11/01/18 11/01/18 05:59 13:59 21:59 Intake Total 360 Output Total 0 Balance 360 Weight 164 lb 8 oz Intake: Oral 360 Output: Void Amount 0 General appearance: no acute distress Exam: Alert and oriented Nonlabored breathing No Anxiety Nondistended abdomen Medical - PN: Obj Da - Labs CBC & Chem 7: 11/01/18 04:10 11/01/18 04:10 Labs: Abnormal Lab Results 11/01/18 11/01/18 10/31/18 04:10 04:10 04:30 WBC Hgb 11.6 L Hct RDW 17.6 H Lymphocytes % Eosinophils % (Manual) 9 H Nucleated RBCs 2 H RBC Morphology Abnorm A Anisocytosis 1+ A Sodium 129 L 130 L Chloride 91 L 93 L BUN 43 H Creatinine 4.9 H 3.3 H Glucose 130 H 118 H Calcium GGT 53 H 50 H Alkaline Phosphatase 150 H 132 H Lactate Dehydrogenase 259 H Albumin 3.1 L 10/31/18 10/30/18 10/30/18 04:30 03:29 03:29 WBC 4.4 L 4.1 L Hgb 11.6 L 11.2 L Hct 35.0 L RDW 18.0 H 18.6 H Lymphocytes % 9 L Eosinophils % (Manual) 11 H Nucleated RBCs RBC Morphology Abnorm A Abnorm A Anisocytosis 1+ A 1+ A Sodium Chloride 94 L BUN 26 H Creatinine 4.0 H Glucose 154 H Calcium 8.2 L GGT 45 H Alkaline Phosphatase 128 H Lactate Dehydrogenase Albumin Meds: Medications Acetaminophen (Tylenol) 650 mg PO Q4-6HP PRN PRN Reason: PAIN/FEVER > 101 Last Admin: 11/01/18 13:11 Dose: 650 mg Documented by: Hydrocodone Bitart/Acetaminophen ([place] 5/325mg) 0.5 tab PO Q8HP PRN PRN Reason: PAIN LEVEL 3-6 Albuterol/Ipratropium (Duoneb) 3 ml NEB Q4HP PRN PRN Reason: Shortness Of Breath Amlodipine Besylate (Norvasc) 10 mg PO DAILY SAROJ Benzonatate (Tessalon) 200 mg PO TIDP PRN PRN Reason: Cough Carvedilol (Coreg) 25 mg PO BIDCC [facility] Diagnostic Test (Pha) (Accu-Chek) 1 each FS TIDAC SAROJ Docusate Sodium (Colace) 100 mg PO BID [facility] Guaifenesin (Robitussin Dm) 5 ml PO Q4HP PRN PRN Reason: Cough Heparin Sodium (Porcine) (Heparin) 5,000 unit SQ Q12 [facility] Hydralazine HCl (Apresoline) 10 - 20 mg IV Q4-6HP PRN PRN Reason: Hypertension Acetaminophen (Ofirmev) 1,000 mg in 100 mls @ 200 mls/hr IV Q6HP PRN PRN Reason: PAIN/FEVER > 101 Insulin Human Lispro (Humalog) 0 unit SQ ACHS [facility]; Protocol Levofloxacin (Levaquin) 500 mg PO Q48H [facility]; Protocol Ondansetron HCl (Zofran) 4 mg IV Q4-6HP PRN PRN Reason: Nausea And Vomiting Ondansetron HCl (Zofran Odt) 4 mg PO Q6HP PRN PRN Reason: nausea and vomiting Sucroferric Oxyhydroxide [ Velphoro] 1,000 Mg Tab 1 dose PO TIDCC SAROJ Senna/Docusate Sodium (Senna Plus Tablet) 1 tab PO HS [facility] Sodium Chloride (Saline Flush) 10 ml IV Q8 [facility] Medical - PN: A/P - Time Spent With Patient Total time spent is greater than 50% in coordination of care (as documented) at patient's floor/unit and/or counseling patient: 15 - 24 minutes (1) Hypertensive crisis Status: Acute Assessment and plan: * Interstitial pneumonia- Clinically improving on antibiotic coverage. Cultures negative so far. Continue oral Levaquin * Hypertensive crisis with decompensated heart failure-resolved. Blood pressures now at goal around 130. Off nicardipine drip, now on home meds. * Acute pulmonary edema secondary to hypertensive crisis and volume overload - status post emergent HD per nephrology. Clinically resolved. Repeat chest imaging * ESRD on HD managed per nephrology * History of right renal hematoma-now organizing fibrosis on ultrasound. * Full code * Prophylaxis heparin Plan * Continue oral Levaquin * Transfer to medical floor * Continue PT OT nutrition support * Continue HD per nephrology * Anticipate discharge in 24 hours Current Visit: Yes
[2018-11-01] MEDS ORDERED: SENNOSIDES/DOCUSATE SODIUM 1 TAB TABLET PO SCH (21:00)
[2018-11-02] MEDS: 0.9 % SODIUM CHLORIDE 10 ML SYRINGE IV SCH ×3 (06:10→21:31)
[2018-11-02 06:37] LABS: Hematocrit 39.4 % (36.0-48.0); Hemoglobin 12.4 g/dL (12.0-15.0); Mean Cell Volume 86.5 fL (80.0-100.0); Mean Corpuscular HGB Conc 31.5 g/dL (31.0-36.0); Mean Platelet Volume 8.1 fL (7.4-10.4); Platelet Count 260 K/mcL (140-440); RBC 4.55 M/mcL (4.00-5.20); Red Cell Distribution Width 17.7 % (11.5-14.5); WBC 4.7 K/mcL (4.5-11.0)
[2018-11-02 06:56] LABS: ALT/SGPT 8 U/l (0-40); AST/SGOT 15 U/l (0-37); Albumin 3.4 gm/dL (3.2-5.2); Alkaline Phosphatase 149 U/L (39-117); Bilirubin,Direct < 0.2 mg/dL (0.0-0.3); Bilirubin,Total 0.5 mg/dL (0.0-1.0); Blood Urea Nitrogen 24 mg/dl (6-20); Carbon Dioxide 27 mmol/L (22-30); Chloride 93 mmol/L (96-108); Globulin 3.3 gm/dL (2.2-3.7); Glomerular Filtration Rate 14; Glucose 115 mg/dL (70-105); Lactate Dehydrogenase 176 U/L (94-250); Magnesium 2.2 mg/dL (1.6-2.5); Potassium 4.9 mmol/L (3.3-5.1); Sodium 132 mmol/L (133-145); Triglycerides 120 mg/dl (<150); Uric Acid 3.3 mg/dL (2.5-8.0)
--- NOTE | 2018-11-02 07:07 | Nephrology Progress Note ---
Subjective Patient information: Note initiated : 11/02/18 at 7:05 am Patient: Carlene Maddox 48 y/o F admitted on 10/28/18 for sob, nauseous. Chief Complaint: Cough Pertinent ROS: Cough Shortness of breath No edema Weakness improved Objective - Vital Signs Vital signs: Vital Signs Temp Pulse Pulse Pulse Resp BP BP 11/02/18 04:20 97.8 F 74 16 131/68 11/01/18 23:22 98.3 F 73 20 136/71 11/01/18 20:00 98.3 F 79 20 132/70 11/01/18 16:00 98.3 F 73 73 18 93/56 93/56 11/01/18 14:38 96.8 F L 72 132/72 11/01/18 14:06 87 126/71 11/01/18 13:36 69 123/71 11/01/18 13:07 79 140/77 11/01/18 12:34 71 135/77 11/01/18 12:06 78 134/59 11/01/18 11:58 97.4 F 82 18 149/83 11/01/18 11:36 72 149/83 11/01/18 11:19 80 16 11/01/18 11:10 72 148/85 11/01/18 10:33 97.9 F 71 139/81 Pulse Ox 11/02/18 04:20 95 11/01/18 23:22 98 11/01/18 20:00 96 11/01/18 16:00 92 11/01/18 14:38 11/01/18 14:06 11/01/18 13:36 11/01/18 13:07 11/01/18 12:34 11/01/18 12:06 11/01/18 11:58 94 11/01/18 11:36 11/01/18 11:19 11/01/18 11:10 11/01/18 10:33 Intake and Output 11/01/18 11/02/18 11/02/18 21:59 05:59 13:59 Intake Total 360 625 Output Total 4000 Balance -3640 625 Intake: Oral 360 625 Output: Hemodialysis UF 4000 Other: Meal HS Snack Percent of Meal Consumed 100% Feeding Ability Independent Stool Size Small Stool Consistency Soft Formed # Bowel Movements 1 Weight 159 lb 3.2 oz Intake & Output: Intake & Output 05/29/19 05/30/19 05/30/19 21:59 05:59 13:59 Intake Total 360 625 Output Total 4000 Balance -3640 625 Weight 159 lb 3.2 oz Intake: Oral 360 625 Output: Hemodialysis UF 4000 Other: Meal HS Snack Percent of Meal Consumed 100% Feeding Ability Independent Stool Size Small Stool Consistency Soft Formed # Bowel Movements 1 - General Appearance General appearance: fatigue EENT: mucous membranes moist Neck: supple Respiratory: course breath sounds Cardiology: no edema Gastrointestinal: no tenderness Integumentary: warm and dry Neurologic: no focal deficit, alert and oriented x3 Musculoskeletal: no deformities Psychiatric: mood/affect appropriate, cooperative - Lab 11/02/18 04:20 11/02/18 04:20 Most recent lab results Calcium 9.0 mg/dl (8.6-10.4) 11/02/18 04:20 Phosphorus 4.0 mg/dL (2.7-4.5) 11/02/18 04:20 Magnesium 2.2 mg/dL (1.6-2.5) 11/02/18 04:20 Assessment and Plan (1) ESRD (end stage renal disease) on dialysis Carlene Maddox is a 48-year-old female with end-stage renal disease on chronic hemodialysis (through right arm AV fistula, at [facility], on MWF), chronic anemia due to kidney disease, coronary artery disease, diabetes mellitus type 2, hypertension, presented to ED for shortness of breath and cough for the past 5 days and admitted on 10/28/18. End-stage renal disease. Accelerated hypertension, resolved. Fluid overload, resolved. Recent work up: Pulmonary function study on 09/08/18: Mild restrictive pulmonary deficit with a reduced total lung capacity with lower diffusing capacity and the spirometric airflow pattern suggesting increased elastic recoil. Echo on 09/08/18: LVEF 48%, mild global hypokinesis of the left ventricle and mild to moderate concentric left ventricular hypertrophy. Renal US on 10/20/18: 12 cm hematoma in the inferior right perinephric space shows only slight decrease since exam over three months ago. This may represent organizing fibrosis at this point. Consider repeat CT for better evaluation. Plan: Continue hemodialysis on MWF. EDW decreased from 79 to 72 kg at the dialysis unit. Status: Chronic Priority: Medium
[2018-11-02] MEDS: INSULIN LISPRO 1 UNIT/0.01 ML UNIT SQ SCH ×4 (07:27→20:23)
[2018-11-02] MEDS: CARVEDILOL 12.5 MG TABLET PO SCH ×2 (07:57→17:17)
[2018-11-02] MEDS: SUCROFERRIC OXYHYDROXIDE 1000 MG PO SCH (07:58)
[2018-11-02] MEDS: ACETAMINOPHEN 325 MG TABLET PO PRN (08:00)
[2018-11-02 08:07] LABS: Anisocytosis 1+ (NONE SEEN); Eosinophils % (Manual) 5 % (0-7); Lymphocytes % 33 % (15-49); Monocytes % (Manual) 10 % (1-12); Platelet Estimate NORMAL (NORMAL); RBC Morphology ABNORM (NORMAL); Segmented Neutrophils % 52 % (38-78)
[2018-11-02] MEDS ORDERED: LEVOFLOXACIN 500 MG TABLET PO SCH (09:00)
[2018-11-02] MEDS ORDERED: amLODIPine 10 MG TABLET PO SCH (09:00)
[2018-11-02] MEDS: HEPARIN 5,000 UNIT/ML VIAL SQ SCH ×2 (09:17→21:30)
[2018-11-02] MEDS: DOCUSATE SODIUM 100 MG CAPSULE PO SCH ×2 (09:17→21:31)
[2018-11-02] MEDS ORDERED: ACETAMINOPHEN 325 MG TABLET PO PRN (10:20)
[2018-11-02] MEDS ORDERED: hydrALAZINE 20 MG/ML VIAL IV PRN (10:20)
[2018-11-02] MEDS ORDERED: IPRATROPIUM/ALBUTEROL 3 ML AMPUL.NEB NEB PRN (10:20)
[2018-11-02] MEDS ORDERED: ONDANSETRON 4 MG/2 ML VIAL IV PRN (10:20)
[2018-11-02] MEDS ORDERED: ONDANSETRON 4 MG ODT TABLET PO PRN (10:20)
[2018-11-02] MEDS ORDERED: ACETAMINOPHEN 1,000 MG/100 ML BOTTLE IV PRN (10:20)
[2018-11-02] MEDS ORDERED: HYDROcodone/APAP 5/325MG TABLET PO PRN (10:20)
--- NOTE | 2018-11-02 11:23 | Internal Med Progress Note ---
Medical - PN: Subj Patient information: Note initiated : 11/02/18 at 11:20 am Service Date, if different from initiated Date: [] Patient: Carlene Maddox a 48 y/o F admitted on 10/28/18 for sob, nauseous. Chief Complaint: [] Interval history: Ms. Maddox is a 48 year old F with history of ESRD on hemodialysis who presents to the ER with worsening shortness of breath that involved over the last few days. Patient noted low-grade fever along with productive sputum. She endorses to sick contact as her mother who has been experiencing upper respiratory symptoms for the last week. She denies shaking chills, headache, chest palpitations. Her symptoms progressed to the point that she was barely able to function and has started experiencing dyspnea at rest. Initial workup in the ER was consistent with CHF and volume overload. Patient's systolics over 200. Nephrology was consulted for emergent hemodialysis. Hospitalist service was consulted. Recent echo in October EF 48% At the time evaluation patient is anxious but able to answer most questions. She is a very able talk in full sentences. She denies recent NSAIDs or changes in medications. She started on nicardipine drip She further denies diarrhea dysuria abdominal pain, nausea, vomiting. 10/29- patient admitted to ICU, overnight on antihypertensives drip. Ongoing hemodialysis for flash pulmonary edema. White count 4.6, cultures pending, MAXIMUM TEMPERATURE 101. Minimal discomfort. No telemetry events. Restart on home antihypertensives, weaning nicardipine drip. Repeat chest imaging in 24 hours. 10/30-patient doing well. Systolics around 140. Off antihypertensives strips. Ongoing hemodialysis. Improved dyspnea/hypoxia. No significant telemetry events. No fever chills but persistent productive cough. Cultures negative so far. Mycoplasma IgM negative. Repeat chest imaging pending 10/31- patient doing better however persistent cough. No overnight events including fever chills nausea vomiting or telemetry events. No concerns per staff. Hemodialysis ongoing. Blood pressures improved control. No leukocytosis. Ongoing PT OT/nutrition support. 11/01-patient doing remarkably better. Anticipate discharge in 24 hours. Ongoing hemodialysis per nephrology. No overnight fever chills. Stable labs and hemodynamics. Continue PT OT/nutrition support. 11/02-patient complains of dizziness and lightheadedness during ambulation. Very concerned about discharged today. The pressure around 110. Telemetry monitoring to rule out arrhythmia. Hold discharge for 24 hours until patient stable. Currently on room air. Hemodialysis on Tuesday. No other significant changes since previous day - Constitutional Vitals: Vital Signs Temp Pulse Resp BP Pulse Ox 96.7 F L 72 18 128/75 98 11/02/18 08:00 11/02/18 09:40 11/02/18 09:40 11/02/18 08:00 11/02/18 08:00 Period Temp Pulse Resp BP Sys/Shin Pulse Ox Last 24 Hr 96.7 F-98.3 F 69-87 16-20 93-149/56-83 92-98 Intake and Output 11/01/18 11/02/18 11/02/18 21:59 05:59 13:59 Intake Total 360 625 Output Total 4000 Balance -3640 625 Weight 159 lb 3.2 oz Intake & Output: Intake & Output 11/01/18 11/02/18 11/02/18 21:59 05:59 13:59 Intake Total 360 625 Output Total 4000 Balance -3640 625 Weight 159 lb 3.2 oz Intake: Oral 360 625 Output: Hemodialysis UF 4000 Other: Meal HS Snack Percent of Meal Consumed 100% Feeding Ability Independent Stool Size Small Stool Consistency Soft Formed # Bowel Movements 1 General appearance: no acute distress Exam: Alert but anxious Nonlabored breathing Nondistended abdomen No lymphedema Medical - PN: Obj Da - Labs CBC & Chem 7: 11/02/18 04:20 11/02/18 04:20 Labs: Abnormal Lab Results 11/02/18 11/02/18 11/01/18 04:20 04:20 04:10 WBC Hgb RDW 17.7 H Eosinophils % (Manual) Nucleated RBCs RBC Morphology Abnorm A Anisocytosis 1+ A Sodium 132 L 129 L Chloride 93 L 91 L BUN 24 H 43 H Creatinine 3.6 H 4.9 H Glucose 115 H 130 H GGT 62 H 53 H Alkaline Phosphatase 149 H 150 H Lactate Dehydrogenase 259 H Albumin 11/01/18 10/31/18 10/31/18 04:10 04:30 04:30 WBC 4.4 L Hgb 11.6 L 11.6 L RDW 17.6 H 18.0 H Eosinophils % (Manual) 9 H 11 H Nucleated RBCs 2 H RBC Morphology Abnorm A Abnorm A Anisocytosis 1+ A 1+ A Sodium 130 L Chloride 93 L BUN Creatinine 3.3 H Glucose 118 H GGT 50 H Alkaline Phosphatase 132 H Lactate Dehydrogenase Albumin 3.1 L Meds: Medications Acetaminophen (Tylenol) 650 mg PO Q4-6HP PRN PRN Reason: PAIN/FEVER > 101 Hydrocodone Bitart/Acetaminophen ([place] 5/325mg) 0.5 tab PO Q8HP PRN PRN Reason: PAIN LEVEL 3-6 Albuterol/Ipratropium (Duoneb) 3 ml NEB Q4HP PRN PRN Reason: Shortness Of Breath Amlodipine Besylate (Norvasc) 10 mg PO DAILY SAROJ Benzonatate (Tessalon) 200 mg PO TIDP PRN PRN Reason: Cough Carvedilol (Coreg) 25 mg PO BIDCC [facility] Diagnostic Test (Pha) (Accu-Chek) 1 each FS TIDAC [facility] Docusate Sodium (Colace) 100 mg PO BID SAR[facility] Guaifenesin (Robitussin Dm) 5 ml PO Q4HP PRN PRN Reason: Cough Heparin Sodium (Porcine) (Heparin) 5,000 unit SQ Q12 [facility] Hydralazine HCl (Apresoline) 10 - 20 mg IV Q4-6HP PRN PRN Reason: Hypertension Acetaminophen (Ofirmev) 1,000 mg in 100 mls @ 200 mls/hr IV Q6HP PRN PRN Reason: PAIN/FEVER > 101 Insulin Human Lispro (Humalog) 0 unit SQ ACHS [facility]; Protocol Levofloxacin (Levaquin) 500 mg PO Q48H [facility]; Protocol Ondansetron HCl (Zofran) 4 mg IV Q4-6HP PRN PRN Reason: Nausea And Vomiting Ondansetron HCl (Zofran Odt) 4 mg PO Q6HP PRN PRN Reason: nausea and vomiting Sucroferric Oxyhydroxide [ Velphoro] 1,000 Mg Tab 1 dose PO TIDCC SARO[facility] Senna/Docusate Sodium (Senna Plus Tablet) 1 tab PO HS [facility] Sodium Chloride (Saline Flush) 10 ml IV Q8 [facility] Medical - PN: A/P - Time Spent With Patient Total time spent is greater than 50% in coordination of care (as documented) at patient's floor/unit and/or counseling patient: 15 - 24 minutes (1) Hypertensive crisis Status: Acute Assessment and plan: * Interstitial pneumonia- Clinically improving on antibiotic coverage. Continue Levaquin for additional 4 days * Dizziness or lightheadedness-check orthostatics, rule out arrhythmia. 24 hour telemetry monitoring * Hypertensive crisis with decompensated heart failure-resolved. Blood pressure is now at goal * Acute pulmonary edema secondary to hypertensive crisis and volume overload - clinically resolved. Status post emergent HD per nephrology. * ESRD on HD managed per nephrology * History of right renal hematoma-now organizing fibrosis on ultrasound. * Full code * Prophylaxis heparin Plan * Continue oral Levaquin for additional 4 days * Telemetry monitoring for 24 hours * Continue PT OT nutrition support * Continue HD per nephrology * Possible discharge if no further events in 24 hours Current Visit: Yes
[2018-11-02] MEDS ORDERED: SUCROFERRIC OXYHYDROXIDE 1000 MG PO SCH (12:00)
[2018-11-02] MEDS: BENZONATATE 100 MG CAPSULE PO PRN (17:03)
[2018-11-02] MEDS: SUCROFERRIC OXYHYDROXIDE 500 MG PO SCH (17:18)
[2018-11-02] MEDS ORDERED: SENNOSIDES/DOCUSATE SODIUM 1 TAB TABLET PO SCH (21:00)
[2018-11-02] MEDS: guaiFENesin/DEXTROMETHORPHAN ORAL SOL PO PRN (21:39)
[2018-11-03] MEDS: 0.9 % SODIUM CHLORIDE 10 ML SYRINGE IV SCH (04:12)
[2018-11-03] MEDS: INSULIN LISPRO 1 UNIT/0.01 ML UNIT SQ SCH (07:21)
[2018-11-03] MEDS: DOCUSATE SODIUM 100 MG CAPSULE PO SCH (07:26)
[2018-11-03] MEDS: SUCROFERRIC OXYHYDROXIDE 500 MG PO SCH (07:27)
[2018-11-03] MEDS: CARVEDILOL 12.5 MG TABLET PO SCH (07:27)
[2018-11-03] MEDS: guaiFENesin/DEXTROMETHORPHAN ORAL SOL PO PRN (07:27)
[2018-11-03] MEDS: BENZONATATE 100 MG CAPSULE PO PRN (07:27)
[2018-11-03] MEDS: HEPARIN 5,000 UNIT/ML VIAL SQ SCH (07:27)
--- NOTE | 2018-11-03 08:22 | Discharge Summary ---
Medical - DS: Prov Patient information: Note initiated : 11/03/18 at 8:19 am Service Date, if different from initiated Date: [] Patient: Carlene Maddox 48 y/o F admitted on 10/28/18 for sob, nauseous. Chief Complaint: [] Date of admission: 10/28/18 23:51 Discharge date: 11/03/18 Primary care physician: Padmini Naik Consults: 10/28/18 Consult to Physician [CONS] Stat Comment: Consulting Provider: Demond Peters Reason For Exam: Physician to Consult Consult to Physician [CONS] Stat Comment: Consulting Provider: Antonio Lam Reason For Exam: Physician to Consult 10/28/18 23:52 Consult to Physician [CONS] Routine Comment: Consulting Provider: Antonio Lam Reason For Exam: Physician to Consult Medical - DS: Meds - Discharge Medications Prescriptions: Levofloxacin [Levaquin] 500 mg PO Q48H #2 tab Active and Home Medications: Home Medications Ondansetron [Zofran ODT] 4 mg PO Q6H PRN #20 tab 04/20/18 [Rx Confirmed 10/28/18 Last Taken Unknown] diphenhydrAMINE [Benadryl] 25 mg PO Q4-6HP PRN 05/19/18 [History Confirmed 10/31/18 Last Taken Unknown] HYDROmorphone HCL [Dilaudid] 2 mg PO Q4-6HP PRN #15 tab 06/06/18 [Rx Confirmed 11/03/18 Last Taken Unknown] cholecalciferol (vitamin D3) 1,000 unit capsule 1,000 unit PO QDAY #30 cap 06/19/18 [Rx Confirmed 10/31/18 Last Taken Unknown] Albuterol Sulfate [Proair Hfa] 1 - 2 puff IH Q4-6HP PRN #1 hfa.aer.ad 07/14/18 [Rx Confirmed 10/31/18 Last Taken Unknown] amlodipine 10 mg tablet 10 mg PO DAILY #30 tab 08/24/18 [Rx Confirmed 10/28/18 Last Taken Unknown] carvedilol 25 mg tablet 25 mg PO BIDCC #60 tab 09/13/18 [Rx Confirmed 10/28/18 Last Taken Unknown] Sucroferric Oxyhydroxide [Velphoro] 1,500 mg PO TIDCC 11/02/18 [History Confirmed 11/02/18 Last Taken Unknown] Levofloxacin [Levaquin] 500 mg PO Q48H #2 tab 11/03/18 [Rx Last Taken Unknown] Medical - DS: Hosp Hospital course: Discharge diagnoses * Interstitial pneumonia- Clinically resolution noted on antibiotic coverage. Continue Levaquin for additional 48 hours * Mild transient dizziness -clinically resolved. No telemetry events. * Hypertensive crisis with decompensated heart failure-resolved. Blood pressure is now at goal. Follow nephrology outpatient * Acute pulmonary edema secondary to hypertensive crisis and volume overload - clinically resolved. Status post emergent HD per nephrology. * ESRD on HD managed per nephrology * History of right renal hematoma-now organizing fibrosis on ultrasound. * History of hypertension continue Coreg/amlodipine at home dose as per nephrology Brief hospital course Ms. Maddox is a 48 year old F with history of ESRD on hemodialysis who presents to the ER with worsening shortness of breath that involved over the last few days. Patient noted low-grade fever along with productive sputum. She endorses to sick contact as her mother who has been experiencing upper respiratory symptoms for the last week. She denies shaking chills, headache, chest palpitations. Her symptoms progressed to the point that she was barely able to function and has started experiencing dyspnea at rest. Initial workup in the ER was consistent with CHF and volume overload. Patient's systolics over 200. Nephrology was consulted for emergent hemodialysis. Hospitalist service was consulted. Recent echo in October EF 48% At the time evaluation patient is anxious but able to answer most questions. She is a very able talk in full sentences. She denies recent NSAIDs or changes in medications. She started on nicardipine drip She further denies diarrhea dysuria abdominal pain, nausea, vomiting. 10/29- patient admitted to ICU, overnight on antihypertensives drip. Ongoing hemodialysis for flash pulmonary edema. White count 4.6, cultures pending, MAXIMUM TEMPERATURE 101. Minimal discomfort. No telemetry events. Restart on home antihypertensives, weaning nicardipine drip. Repeat chest imaging in 24 hours. 10/30-patient doing well. Systolics around 140. Off antihypertensives strips. Ongoing hemodialysis. Improved dyspnea/hypoxia. No significant telemetry events. No fever chills but persistent productive cough. Cultures negative so far. Mycoplasma IgM negative. Repeat chest imaging pending 10/31- patient doing better however persistent cough. No overnight events inclu ding fever chills nausea vomiting or telemetry events. No concerns per staff. Hemodialysis ongoing. Blood pressures improved control. No leukocytosis. Ongoing PT OT/nutrition support. 11/01-patient doing remarkably better. Anticipate discharge in 24 hours. Ongoing hemodialysis per nephrology. No overnight fever chills. Stable labs and hemodynamics. Continue PT OT/nutrition support. 11/02-patient complains of dizziness and lightheadedness during ambulation. Very concerned about discharged today. The pressure around 110. Telemetry monitoring to rule out arrhythmia. Hold discharge for 24 hours until patient stable. Currently on room air. Hemodialysis on Tuesday. No other significant changes since previous day 11/03-patient feels remarkably better. Ambulating only. Ongoing physical therapy. Ongoing hemodialysis. Discharge in advised to continue additional 2 days oral ofloxacin and outpatient dialysis as per nephrology. Continue follow- up with nephrology as scheduled. Discharge instructions and medications as below. Discharge diagnosis: . - Time Spent with Patient Total time spent providing and/or coordinating discharge services: Greater than 30 minutes Medical - DS: Exam - Constitutional Vitals: Vital Signs Temp Pulse Pulse Pulse Resp BP Pulse Ox 11/03/18 07:37 97.8 F 16 138/84 99 11/03/18 04:00 97.3 F 72 20 149/82 97 11/02/18 23:13 97.6 F 81 81 16 150/71 98 11/02/18 20:46 77 16 11/02/18 20:00 97.7 F 75 20 148/83 95 11/02/18 16:00 96.9 F L 74 20 98 11/02/18 11:48 97.6 F 20 123/66 94 11/02/18 09:40 72 18 Intake and Output 11/02/18 11/03/18 11/03/18 21:59 05:59 13:59 Intake Total 520 600 Balance 520 600 Intake: Oral 520 600 Other: Meal Dinner Percent of Meal Consumed 100% Feeding Ability Independent Stool Size Moderate Stool Color Brown Stool Consistency Formed # Bowel Movements 1 Weight 164 lb 8 oz Medical - DS: Data Labs on day of discharge: Preliminary micro results at discharge 10/29/18 13:21 Blood Culture - Preliminary Blood 10/29/18 12:48 Blood Culture - Preliminary Blood Medical - DS: A/P - Patient/Caregiver Discharge Instructions Activity: increase activity as tolerated Diet: Renal Additional Instructions: Follow-up PCP in 5 days Follow-up nephrology outpatient Continue hemodialysis as scheduled Oral levofloxacin for 48 hours Continue fall precautions Return to ER if worsening fever chills shortness of breath, diarrhea, Review risk and side effect profile of medications including antibiotics. Side effect may include mild to severe reaction including rash, diarrhea, cdiff and even which can be prevented by close follow-up with PCP and monitoring for side effects Refrain from smoking and alcohol Continue diet and activity as advised Discussed importance of medication adherence Please review medication list with patient prior to discharge Please schedule follow-up with PCP/Providers prior to discharge and provide printouts Prescriptions: Levofloxacin [Levaquin] 500 mg PO Q48H #2 tab - Problem Maintenance (1) Hypertensive crisis Status: Acute - Follow up Plan Follow up with: Dee De Guzman MD [Physician] - Padmini Naik ARNP [Primary Care Provider] - Disposition: Home, Self-Care Prognosis: Fair Rehab Potential: Fair I certify that the patient requires SNF services: No Overall status at discharge: patient is back to baseline
[2018-11-03] MEDS ORDERED: amLODIPine 10 MG TABLET PO SCH (09:00)
[2018-11-04] MEDS ORDERED: LEVOFLOXACIN 500 MG TABLET PO SCH (09:00)
== END 2018-11-03 10:22 | disposition home or self-care (01) | DRG 196 ==
LOC: ED 18:30 → ICU 23:51 → MEDSUR 11-01 14:55
PROVIDERS: ADMIT Internal Medicine; ATTEND Internal Medicine

== ENCOUNTER 2019-03-01 16:12 | Observation (INO) ==
--- NOTE | 2019-03-01 17:08 | Emergency Department Note ---
General Adult HPI - General Chief complaint: Shortness of Breath/Dyspnea Stated complaint: shortness of breath Time Seen by Provider: 03/01/19 16:50 Source: patient Mode of arrival: wheelchair Limitations: no limitations - History of Present Illness HPI Narrative: 48-year old patient presenting with dizziness. Patient reporting recurrent episodes. Duration of these episodes is minutes to hours, and she has been sick since October. Patient is without gait impairment. Patient is without headache, deafness, tinnitus, photophobia, sonophobia, palpitations, and diaphoresis. Exacerbating factors are head motion, coughing, sneezing, exertion, loud noises. Patient does have associated symptom of dyspnea her past medical history is significant for renal failure on dialysis. Patient was most recently dialyzed yesterday. Patient also states that her blood pressure is lower than normal for her ameliorating factors include nothing. Patient without history of acute neck injury, acute barotrauma, middle ear surgery, heavy lifting or straining with b owel movements. - Related Data Home Medications Medication Instructions Recorded Confirmed diphenhydrAMINE [Benadryl] 25 mg PO Q4-6HP PRN 05/19/18 03/01/19 Sucroferric Oxyhydroxide [Velphoro] 1,500 mg PO TIDCC 11/02/18 03/01/19 Previous Rx's Medication Instructions Recorded HYDROmorphone HCL [Dilaudid] 2 mg PO Q4-6HP PRN #15 tab 06/06/18 cholecalciferol (vitamin D3) 1,000 1,000 unit PO QDAY #30 cap 06/19/18 unit capsule Albuterol Sulfate [Proair Hfa] 1 - 2 puff IH Q4-6HP PRN #1 07/14/18 hfa.aer.ad amlodipine 10 mg tablet 10 mg PO DAILY #30 tab 08/24/18 carvedilol 25 mg tablet 25 mg PO BIDCC #60 tab 09/13/18 Ondansetron [Zofran ODT] 4 mg SL Q4-6HP PRN #20 tab 02/27/19 traMADol HCL [Ultram] 50 mg PO Q4H PRN #20 tab 02/27/19 Allergies Allergy/AdvReac Type Severity Reaction Status Date / Time codeine AdvReac Mild Vomiting Verified 03/01/19 16:19 diazepam [From Valium] AdvReac Mild Other Verified 03/01/19 16:19 Review of Systems All systems ED: reviewed and negative except as stated. Past Medical History - Past [facility] Narrative: All Active Problems (Last Reviewed 10/23/18 @ 15:04 by María Elena Mercado RN) Retroperitoneal hemorrhage (Acute) Hyponatremia (Chronic) Anemia in ESRD (end-stage renal disease) (Chronic) Acute blood loss anemia (Acute) Renal hematoma, right (Acute) Retroperitoneal hematoma (Acute) SOB (shortness of breath) (Acute) Fluid overload (Acute) Cardiomegaly (Acute) Kidney disease (Acute) Muscle pain, cervical (Acute) Hypertensive crisis (Acute) Right ankle pain (Acute) Left knee pain (Acute) Fall (Acute) Ankle fracture, right (Acute) ESRD (end stage renal disease) on dialysis (Chronic) Acute whiplash injury (Acute) Bronchitis (Acute) Abdominal pain (Acute) Dialysis patient (Acute) Pancreatitis (Acute) Hypertensive urgency (Acute) Nausea & vomiting (Acute) Anemia (Acute) Leukocytosis (Acute) Hypothyroidism (Chronic) Vomiting (Chronic) Chest pain (Acute) Atypical chest pain (Acute) Obesity (Chronic) Secondary hyperparathyroidism of renal origin (Chronic) Proteinuria (Chronic) Hx of abdominal surgery (Acute) Vitamin D deficiency (Acute) Retinopathy, diabetic, background (Acute) Rash (Acute) Insomnia (Acute) Hypertension, essential, benign (Acute) Hyperlipidemia (Acute) Edema leg (Acute) 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) Diabetes mellitus type II, uncontrolled (Acute) CHF (congestive heart failure) (Acute) Chest pain (Acute) Medical history: Reports: CAD (coronary artery disease), DM, GERD, hyperlipidemia, hypertension, renal disease, thyroid disease, other (right renal cyst ) Psychiatric history: Reports: depression Surgical history ED: Reports: other (dialysis fistula / catheter and 2 times abdominal surgeries) - Social History smoking status: Former smoker Alcohol use: Reports: Unknown Drug use: Reports: unknown Physical Exam General: Alert, interactive, appropriate Head: Atraumatic, normocephalic Eyes: Extraocular movements intact, PERRLA, no nystagmus Neck: Trachea midline, full range of motion Chest: Symmetrical chest wall rise, clear to auscultation bilateral without wheezes rales crackles or rubs Cardiovascular: Patient with excellent perfusion to the extremities, regular rate and rhythm without M/R/G Abdomen: Nontender nondistended normoactive bowel sounds no masses no hepatosplenomegaly no rebound no guarding Extremities: Full range of motion joints, warm well perfused Neuro: Alert, oriented x3, cranial nerves II through XII grossly intact, normal gait, pt does not have findings on head impulse exam to suggest central lesion eyes are dragged off Psychiatric: Normal affect normal mood Limitations: no limitations Course Vital Signs Temperature 98.7 F 03/01/19 16:12 Pulse Rate 111 H 03/01/19 16:12 Respiratory Rate 22 03/01/19 16:12 Blood Pressure 106/65 03/01/19 16:12 Pulse Oximetry (%) 96 03/01/19 16:12 Temperature 98.7 F 03/01/19 16:12 Pulse Rate 101 H 03/01/19 21:46 Respiratory Rate 19 03/01/19 21:52 Blood Pressure 104/66 03/01/19 21:46 Pulse Oximetry (%) 96 03/01/19 21:46 Medical Decision Making - [facility] Narrative Medical decision making narrative: 48-year-old patient presenting with chief complaint of dizziness. Patient does have past medical history significant for renal failure on dialysis. Patient also having some dyspnea on presentation her oxygen saturation was in the high 80s however after 2 L of oxygen for a portion of her stay and and discontinuing the oxygen patient was ambulated around the emergency department and did not desaturate. Patient without further desaturations after oxygen was discontinued. She did have increase in heart rate on orthostatic testing. EKG without evidence of acute STEMI or need for emergent transfer to cardiology. Laboratory results unremarkable. Broad differential diagnosis was considered including but not limited to dizziness, vertigo, generalized weakness, syncope, dysrhythmia, CVA, TIA, hypertension, hypotension, hypoglycemia, hyperglycemia, dehydration, labyrinthitis, Mnire's disease, URI, otitis media, sinusitis, UTI, pneumonia, GI bleed, anemia, and anxiety. Patient with persistent symptoms and concerns for gait instability and difficulty with ambulation request admission for PT OT and evaluation. Discussed case with hospitalist Dr. Beard and the consensus medical opinion is to admit observation status patient advised that on this status it is the most likely outcome to be discharged tomorrow. - Lab Data Result diagrams: 03/01/19 17:16 09/26/19 17:16 Lab Results 03/01/19 03/01/19 Range/Units 17:16 17:16 WBC 6.3 (4.5-11.0) K/mcL RBC 5.47 H (4.00-5.20) M/mcL Hgb 17.3 H (12.0-15.0) g/dL Hct 53.6 H (36.0-48.0) % MCV 98.0 (80.0-100.0) fL MCH 31.6 (26.0-34.0) pg MCHC 32.3 (31.0-36.0) g/dL RDW 15.2 H (11.5-14.5) % Plt Count 250 (140-440) K/mcL MPV 7.5 (7.4-10.4) fL Gran % 68.6 (38.0-78.0) % Lymph % (Auto) 14.5 L (15.5-49.0) % [place] % (Auto) 14.8 H (1.0-12.0) % Eos % (Auto) 1.7 (0.0-7.0) % Baso % (Auto) 0.4 (0.0-2.0) % Gran # 4.3 (1.8-8.0) K/mcL Lymph # (Auto) 0.9 L (1.5-4.8) K/mcL [place] # (Auto) 0.9 (0.1-0.9) K/mcL Eos # (Auto) 0.1 (0.0-0.7) K/mcL Baso # (Auto) 0 (0.0-0.3) K/mcL Sodium 134 (133-145) mmol/L Potassium 4.1 (3.3-5.1) mmol/L Chloride 81 L (96-108) mmol/L Carbon Dioxide 27 (22-30) mmol/L Anion Gap 26.0 H (8-16) BUN 51 H (6-20) mg/dl Creatinine 6.9 H* (0.6-1.1) mg/dl GFR Calculation 6 Glucose 159 H (70-105) mg/dL Calcium 9.0 (8.6-10.4) mg/dl Total Bilirubin 1.2 H (0.0-1.0) mg/dL AST 18 (0-37) U/l ALT 13 (0-40) U/l Alkaline Phosphatase 112 (39-117) U/L Total Protein 9.0 H (5.9-8.4) gm/dL Albumin 4.4 (3.2-5.2) gm/dL Globulin 4.6 H (2.2-3.7) gm/dL Albumin/Globulin Ratio 1.0 (1.0-2.3) - EKG Data EKG #1 EKG results narrative: EKG: Rate: 100, TN: 129, rhythm: Sinus tachycardia, patient without ST elevations to suggest STEMI, patient without concerning T wave inversions or other findings to suggest NSTEMI Disposition Pt seen by TRAY SERVER/PA only: No Clinical Impression: Dizziness, Weakness Disposition: Xfer As Inpt ([facility]) Condition: Undetermined
--- NOTE | 2019-03-01 17:33 | XRay Report ---
CLINICAL INFORMATION: Chest pain and dyspnea COMPARISON: 10/30/2018 TECHNIQUE: PA and Lateral views FINDINGS: The heart size, mediastinum and pulmonary vessels are unremarkable. The lungs are clear. There are no effusions. The bones and soft tissues are within normal limits. IMPRESSION: Normal chest. Interpreted and Authenticated by: Marc Rizzo 03/01/19
[2019-03-01 17:50] LABS: Basophils # (Auto) 0 K/mcL (0.0-0.3); Basophils % (Auto) 0.4 % (0.0-2.0); Eosinophils # (Auto) 0.1 K/mcL (0.0-0.7); Eosinophils % (Auto) 1.7 % (0.0-7.0); Granulocytes % (Auto) 68.6 % (38.0-78.0); Hematocrit 53.6 % (36.0-48.0); Hemoglobin 17.3 g/dL (12.0-15.0); Lymphocytes # (Auto) 0.9 K/mcL (1.5-4.8); Lymphocytes % (Auto) 14.5 % (15.5-49.0); Mean Corpuscular HGB Conc 32.3 g/dL (31.0-36.0); Mean Platelet Volume 7.5 fL (7.4-10.4); Monocytes # (Auto) 0.9 K/mcL (0.1-0.9); Monocytes % (Auto) 14.8 % (1.0-12.0); Platelet Count 250 K/mcL (140-440); RBC 5.47 M/mcL (4.00-5.20); Red Cell Distribution Width 15.2 % (11.5-14.5); WBC 6.3 K/mcL (4.5-11.0)
[2019-03-01 18:09] LABS: ALT/SGPT 13 U/l (0-40); AST/SGOT 18 U/l (0-37); Albumin 4.4 gm/dL (3.2-5.2); Alkaline Phosphatase 112 U/L (39-117); Bilirubin,Total 1.2 mg/dL (0.0-1.0); Blood Urea Nitrogen 51 mg/dl (6-20); Carbon Dioxide 27 mmol/L (22-30); Chloride 81 mmol/L (96-108); Globulin 4.6 gm/dL (2.2-3.7); Glomerular Filtration Rate 6; Glucose 159 mg/dL (70-105)
--- NOTE | 2019-03-01 21:25 | Internal Med History&Physical ---
Medical - H&P: [facility] Patient information: Note initiated : 03/01/19 at 9:24 pm Service Date, if different from initiated Date: [] Patient: Carlene Maddox a 48 y/o F admitted on for shortness of breath. Chief Complaint: [] Chief complaint: Dizziness lightheadedness and weakness History of present illness: Ms. Maddox is a 48 year old F with history of ESRD on hemodialysis who presents to the ER with roughly 48-hour onset of weakness dizziness along with associated nausea vomiting. Apparently symptoms started following a right ankle injury few days ago. Patient was started on a tramadol on Tuesday. However after a couple of doses patient started experiencing severe nausea vomiting that lasted through Tuesday and later this . Patient became dehydrated and started exp eriencing lightheadedness and dizziness. She experienced a syncopal episode and blacked out for a few seconds. She denies head injury/incontinence/seizure- like episodes. She endorses to loss of appetite. She currently remains on her right extremity boot with nonweightbearing status as per orthopedics. She is due to see orthopedic as an outpatient in the next few days. With worsening symptoms she presents to the ER. Initial work-up in the emergency department was essentially unremarkable. CT head revealed remote infarct but no acute process. However her blood pressures have been hovering around 100. Hospitalist service was consulted in light of multitude of both symptoms. At the time of evaluation patient is alert but distressed with the symptoms. She was able to endorse history as above. She denies diarrhea, headache, fever. She further denies rash/joint pain/weight gain or lower extremity swelling. Review of systems A 10 point review system was performed and is negative except for one discussed above Medical - H&P: PMH Medical history: Acute whiplash injury (Acute) Bronchitis (Acute) Hypertensive urgency (Acute) Nausea & vomiting (Acute) Anemia (Acute) Leukocytosis (Acute) Hypothyroidism (Chronic) Vomiting (Chronic) Chest pain (Acute) Atypical chest pain (Acute) Obesity (Chronic) has been losing weight 2/2 poor po intake - n/v Secondary hyperparathyroidism of renal origin (Chronic) PTH was elevated to 130, goal is 70-110, corrected calcium and phos were ok , clacitriol was started on previous visit continue calcitriol 0.25mcg MWF Ct with OTC cholecalciferol (pt has Vit D deficiency likely related to her nephrotic syndrome) Phos now elevated to >6 in the setting of [facility] will monitor as inpatient Proteinuria (Chronic) Nephrotic syndrome with UPCR Of 13-15gm Faint monoclonal light chain on serum NATHALY, kappa and lambda chain elevated but normal ratio urine NATHALY negative Kidney bx was being considered Will repeat ratios since I suspect some worsening of her proteinuria. 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) Diabetes mellitus type II, uncontrolled (Acute) CHF (congestive heart failure) (Acute) Chest pain (Acute) Surgical History Hx of abdominal surgery (Acute) H/O angioplasty (Acute) 08/05/2015-Ho, Fistulogram with balloo angioplasty of the inflow stenosis Family History sister Chronic kidney disease, stage V Acute myocardial infarction Social History smoking status: Former smoker alcohol intake frequency: holiday/special occasion only Medical - H&P: Meds Home Medications Medication Instructions Recorded Confirmed Type diphenhydrAMINE [Benadryl] 25 mg PO Q4-6HP PRN 05/19/18 03/01/19 History HYDROmorphone HCL [Dilaudid] 2 mg PO Q4-6HP PRN #15 tab 06/06/18 03/01/19 Rx cholecalciferol (vitamin D3) 1,000 1,000 unit PO QDAY #30 cap 06/19/18 03/01/19 Rx unit capsule Albuterol Sulfate [Proair Hfa] 1 - 2 puff IH Q4-6HP PRN #1 07/14/18 03/01/19 Rx hfa.aer.ad amlodipine 10 mg tablet 10 mg PO DAILY #30 tab 08/24/18 03/01/19 Rx carvedilol 25 mg tablet 25 mg PO BIDCC #60 tab 09/13/18 03/01/19 Rx Sucroferric Oxyhydroxide [Velphoro] 1,500 mg PO TIDCC 11/02/18 03/01/19 History Ondansetron [Zofran ODT] 4 mg SL Q4-6HP PRN #20 tab 02/27/19 03/01/19 Rx traMADol HCL [Ultram] 50 mg PO Q4H PRN #20 tab 02/27/19 03/01/19 Rx Allergies Allergy/AdvReac Type Severity Reaction Status Date / Time codeine AdvReac Mild Vomiting Verified 03/01/19 16:19 diazepam [From Valium] AdvReac Mild Other Verified 03/01/19 16:19 Medical - H&P: Exam - Constitutional Vitals: Temp Pulse Resp BP Pulse Ox 98.7 F 96 H 16 90/56 91 03/01/19 16:12 03/01/19 21:16 03/01/19 21:16 03/01/19 21:16 03/01/19 21:16 General appearance: moderate distress Exam: Anxious and distressed Head normocephalic Oral cavity dry No ear nose discharge Eye movement symmetrical No lymphadenopathy S1-S2 regular rhythm Diminished breath sounds bases Skin no suspicious lesion Lower extremity no sinus clubbing or joint swelling, right ankle in boot Psych alert cooperative Neuro nonfocal Medical - H&P: Reslt - Labs CBC & Chem 7: 03/02/19 03:33 03/02/19 03:33 Labs: Short CBC 03/01/19 Range/Units 17:16 WBC 6.3 (4.5-11.0) K/mcL Hgb 17.3 H (12.0-15.0) g/dL Hct 53.6 H (36.0-48.0) % Plt Count 250 (140-440) K/mcL BMP 03/01/19 17:16 Sodium 134 Potassium 4.1 Chloride 81 L Carbon Dioxide 27 BUN 51 H Creatinine 6.9 H* Glucose 159 H Calcium 9.0 Liver Function 03/01/19 Range/Units 17:16 Total Bilirubin 1.2 H (0.0-1.0) mg/dL AST 18 (0-37) U/l ALT 13 (0-40) U/l Alkaline Phosphatase 112 (39-117) U/L Albumin 4.4 (3.2-5.2) gm/dL Medical - H&P: A/P (1) Dizziness Current visit: Yes Status: Acute * Acute onset dizziness with syncope-likely secondary to volume depletion. Nephrology consult in light of ongoing hemodialysis, crystalloid challenge. Telemetry admit. CT no acute event except for history of remote infarct. Rule out arrhythmia on telemetry. Echocardiogram reviewed from September 2018 LVEF 48% with no significant valvular abnormality * ESRD on HD nephrology consult \ * severe nausea vomiting secondary to tramadol adverse reaction. * recent right ankle injury-continue nonweightbearing/pain management. Will follow with orthopedic as outpatient. Stop tramadol * History of hypertension continue amlodipine/Coreg * Reactive disease continue albuterol * Full code * Prophylaxis heparin Plan * Telemetry observation admit * Nephrology consult * Crystalloid challenge * Prior medical condition management home meds * Discontinue tramadol * PT OT/nutrition support
[2019-03-01] MEDS ORDERED: ONDANSETRON 4 MG/2 ML VIAL IV PRN (22:05)
[2019-03-01] MEDS ORDERED: ACETAMINOPHEN 1,000 MG/100 ML BOTTLE IV PRN (22:05)
[2019-03-01] MEDS ORDERED: IPRATROPIUM/ALBUTEROL 3 ML AMPUL.NEB NEB PRN (22:05)
[2019-03-01] MEDS ORDERED: POLYETHYLENE GLYCOL 3350 17 GM PACKET PO PRN (22:05)
[2019-03-01] MEDS ORDERED: MELATONIN 3 MG TABLET PO PRN (22:05)
[2019-03-01] MEDS ORDERED: 0.9 % SODIUM CHLORIDE 500 ML IV ONE (22:12)
[2019-03-01] MEDS ORDERED: LORazepam 2 MG/ML VIAL ONE (22:19)
[2019-03-01] MEDS: LORazepam 2 MG/ML VIAL IV PRN (22:31)
[2019-03-01] MEDS: 0.9 % SODIUM CHLORIDE 10 ML SYRINGE IV SCH (22:32)
[2019-03-01] MEDS ORDERED: fentaNYL 100 MCG/2 ML VIAL IV ONE (23:33)
[2019-03-01] MEDS: fentaNYL 100 MCG/2 ML VIAL IV PRN (23:40)
--- NOTE | 2019-03-02 03:12 | Cat Scan Report ---
CLINICAL INFORMATION: Trauma now with headache and dizziness COMPARISON: 09/06/2018 and 10/31/2015 TECHNIQUE: 2.5 mm helical slices were obtained in the skull base to vertex. Following reconstruction, axial reformatted images were reviewed at bone and parenchymal windows. The exam was performed using radiation dose optimization techniques including, but not limited to, automated exposure control, adjustment of the mA and/or kV according to patient size and use of iterative reconstruction technique. FINDINGS: The ventricles, sulci, fissures, and cisterns are normal in size and configuration. No extra-axial fluid collections are identified. 10 mm focus of encephalomalacia in the deep right frontal white matter is again seen. The cerebrum, brainstem and cerebellum are, otherwise, unremarkable. There is no evidence of hemorrhage, mass effect, or edema. Bone windows show no osseous abnormality. IMPRESSION: 10 mm focus of encephalomalacia in the right frontal white matter again seen. No intracerebral hemorrhage or other new abnormality Interpreted and Authenticated by: Marc Rizzo 03/02/19
[2019-03-02 05:22] LABS: Hematocrit 47.5 % (36.0-48.0); Hemoglobin 15.6 g/dL (12.0-15.0); Mean Corpuscular HGB Conc 32.8 g/dL (31.0-36.0); Mean Platelet Volume 7.6 fL (7.4-10.4); Platelet Count 220 K/mcL (140-440); RBC 4.85 M/mcL (4.00-5.20); Red Cell Distribution Width 15.4 % (11.5-14.5); WBC 5.7 K/mcL (4.5-11.0)
[2019-03-02] MEDS: 0.9 % SODIUM CHLORIDE 10 ML SYRINGE IV SCH ×3 (05:34→22:07)
[2019-03-02 05:42] LABS: ALT/SGPT 11 U/l (0-40); AST/SGOT 16 U/l (0-37); Albumin 3.8 gm/dL (3.2-5.2); Alkaline Phosphatase 96 U/L (39-117); Bilirubin,Direct < 0.2 mg/dL (0.0-0.3); Bilirubin,Total 0.9 mg/dL (0.0-1.0); Blood Urea Nitrogen 62 mg/dl (6-20); Calcium 8.3 mg/dl (8.6-10.4); Carbon Dioxide 28 mmol/L (22-30); Chloride 83 mmol/L (96-108); Globulin 3.9 gm/dL (2.2-3.7); Glomerular Filtration Rate 5; Glucose 151 mg/dL (70-105); Lactate Dehydrogenase 189 U/L (94-250); Phosphorous 7.6 mg/dL (2.7-4.5); Triglycerides 163 mg/dl (<150); Uric Acid 5.9 mg/dL (2.5-8.0)
[2019-03-02 06:28] LABS: Anisocytosis 1+ (NONE SEEN); Basophils % (Manual) 1 % (0-2); Eosinophils % (Manual) 3 % (0-7); Lymphocytes % 17 % (15-49); Monocytes % (Manual) 13 % (1-12); Platelet Estimate NORMAL (NORMAL); RBC Morphology ABNORM (NORMAL); Segmented Neutrophils % 66 % (38-78)
[2019-03-02] MEDS: fentaNYL 100 MCG/2 ML VIAL IV PRN ×2 (09:20→17:29)
[2019-03-02] MEDS: MULTIVIT,THER IRON,CA,FA & MIN 1 TABLET PO SCH (09:21)
[2019-03-02] MEDS: THIAMINE 100 MG TABLET PO SCH (09:21)
[2019-03-02] MEDS: CYANOCOBALAMIN (VITAMIN B-12) 500 MCG TABLET PO SCH ×2 (09:21→22:07)
[2019-03-02] MEDS: HEPARIN 5,000 UNIT/ML VIAL SQ SCH ×2 (09:21→22:06)
[2019-03-02] MEDS: DOCUSATE SODIUM 100 MG CAPSULE PO SCH ×2 (09:22→22:06)
[2019-03-02] MEDS: FOLIC ACID 1 MG TABLET PO SCH (09:22)
[2019-03-02] MEDS ORDERED: ALBUTEROL SULFATE 1 PUFF INHALER IH PRN (10:13)
[2019-03-02] MEDS ORDERED: ONDANSETRON 4 MG ODT TABLET SL PRN (10:13)
--- NOTE | 2019-03-02 10:14 | Internal Med Progress Note ---
Medical - PN: Subj Patient information: Note initiated : 03/02/19 at 10:10 am Service Date, if different from initiated Date: [] Patient: Carlene Maddox a 48 y/o F admitted on 03/01/19 for shortness of breath. Chief Complaint: [] Interval history: Ms. Maddox is a 48 year old F with history of ESRD on hemodialysis who presents to the ER with roughly 48-hour onset of weakness dizziness along with associated nausea vomiting. Apparently symptoms started following a right ankle injury few days ago. Patient was started on a tramadol on Tuesday. However after a couple of doses patient started experiencing severe nausea vomiting that lasted through Tuesday and later this . Patient became dehydrated and started experiencing lightheadedness and dizziness. She experienced a syncopal episode and blacked out for a few seconds. She denies head injury/incontinence/seizure- like episodes. She endorses to loss of appetite. She currently remains on her right extremity boot with nonweightbearing status as per orthopedics. She is due to see orthopedic as an outpatient in the next few days. With worsening symptoms she presents to the ER. Initial work-up in the emergency department was essentially unremarkable. CT head revealed remote infarct but no acute process. However her blood pressures have been hovering around 100. Hospitalist service was consulted in light of multitude of both symptoms. At the time of evaluation patient is alert but distressed with the symptoms. She was able to endorse history as above. She denies diarrhea, headache, fever. She further denies rash/joint pain/weight gain or lower extremity swelling. 03/02-patient doing better since last night. Dizziness much improved. Hemodialysis today. Will likely discharge in 24 hours if no further. No overnight telemetry events except for brief episode of tachycardia which resolved. No fever or leukocytosis. Continue PT OT/dietary support. - Constitutional Vitals: Vital Signs Temp Pulse Resp BP Pulse Ox 98.6 F 100 H 16 116/68 99 03/02/19 08:29 03/02/19 00:00 03/02/19 10:00 03/02/19 10:00 03/02/19 10:00 Period Temp Pulse Resp BP Sys/Shin Pulse Ox Last 24 Hr 97.3 F-98.7 F 91-112 05-01 90-135/56-96 90-99 Intake and Output 03/01/19 03/02/19 03/02/19 21:59 05:59 13:59 Intake Total 720 240 Balance 720 240 Weight 170 lb Intake & Output: Intake & Output 03/01/19 03/02/19 03/02/19 21:59 05:59 13:59 Intake Total 720 240 Balance 720 240 Weight 170 lb Intake: IV 500 Sodium Chloride 0.9% 500 ml @ 500 100 mls/hr IV ONCE ONE Rx#: [id number] Oral 220 240 Other: Meal Egg salad sandwich Breakfast Percent of Meal Consumed 100% 100% Feeding Ability Independent Independent General appearance: no acute distress Exam: Alert oriented Nonlabored breathing no anxiety Nondistended abdomen No lymphedema Medical - PN: Obj Da - Labs CBC & Chem 7: 03/02/19 03:33 03/02/19 03:33 Labs: Abnormal Lab Results 03/02/19 03/02/19 03/01/19 03:33 03:33 17:16 RBC Hgb 15.6 H Hct RDW 15.4 H Lymph % (Auto) Bowie % (Auto) Lymph # (Auto) Monocytes % (Manual) 13 H RBC Morphology Abnorm A Anisocytosis 1+ A Chloride 83 L 81 L Anion Gap 22.0 H 26.0 H BUN 62 H 51 H Creatinine 8.2 H* 6.9 H* Glucose 151 H 159 H Calcium 8.3 L Phosphorus 7.6 H* Total Bilirubin 1.2 H Total Protein 9.0 H Globulin 3.9 H 4.6 H Triglycerides 163 H 03/01/19 17:16 RBC 5.47 H Hgb 17.3 H Hct 53.6 H RDW 15.2 H Lymph % (Auto) 14.5 L Bowie % (Auto) 14.8 H Lymph # (Auto) 0.9 L Monocytes % (Manual) RBC Morphology Anisocytosis Chloride Anion Gap BUN Creatinine Glucose Calcium Phosphorus Total Bilirubin Total Protein Globulin Triglycerides Meds: Medications Acetaminophen (Tylenol) 650 mg PO Q4-6HP PRN PRN Reason: PAIN/FEVER > 101 Albuterol/Ipratropium (Duoneb) 3 ml NEB Q4HP PRN PRN Reason: Shortness Of Breath Cyanocobalamin (Vitamin B-12) 1,000 mcg PO BID SAROJ Stop: 03/06/19 21:01 Last Admin: 03/02/19 09:21 Dose: 1,000 mcg Documented by: Docusate Sodium (Colace) 100 mg PO BID [facility] Last Admin: 03/02/19 09:22 Dose: 100 mg Documented by: Fentanyl (Sublimaze) 25 mcg IV Q8H PRN; Protocol PRN Reason: PAIN LEVEL > 6 Last Admin: 03/02/19 09:20 Dose: 25 mcg Documented by: Folic Acid (Folic Acid) 1 mg PO DAILY [facility] Last Admin: 03/02/19 09:22 Dose: 1 mg Documented by: Heparin Sodium (Porcine) (Heparin) 5,000 unit SQ Q12 [facility] Last Admin: 03/02/19 09:21 Dose: 5,000 unit Documented by: Acetaminophen (Ofirmev) 1,000 mg in 100 mls @ 200 mls/hr IV Q6HP PRN PRN Reason: PAIN/FEVER > 101 Iron Carb/Multivit/[place]/Folic Acid (Multivitamin W/Minerals) 1 tab PO DAILY [facility] Last Admin: 03/02/19 09:21 Dose: 1 tab Documented by: Lorazepam (Ativan) 0.5 mg IV Q4-6HP PRN PRN Reason: ANXIETY/SEDATION Last Admin: 03/01/19 22:31 Dose: 0.5 mg Documented by: Melatonin (Melatonin 3mg Tablet) 3 mg PO HSP PRN PRN Reason: Insomnia Ondansetron HCl (Zofran) 4 mg IV Q4-6HP PRN PRN Reason: Nausea And Vomiting Polyethylene Glycol (Miralax) 17 gm PO DAILYP PRN PRN Reason: Constipation Senna/Docusate Sodium (Senna Plus Tablet) 1 tab PO [facility] Sodium Chloride (Saline Flush) 10 ml IV Q8 [facility] Last Admin: 03/02/19 05:34 Dose: 10 ml Documented by: Thiamine HCl (Vitamin B1) 100 mg PO DAILY [facility] Last Admin: 03/02/19 09:21 Dose: 100 mg Documented by: Medical - PN: A/P - Time Spent With Patient Total time spent is greater than 50% in coordination of care (as documented) at patient's floor/unit and/or counseling patient: 25 - 35 minutes (1) Dizziness Status: Acute Assessment and plan: * Acute onset dizziness with syncope-likely secondary to volume depletion. No overnight telemetry events. Negative neuroimaging except for remote infarct. Echocardiogram reviewed from September 2018 LVEF 48% with no significant valvular abnormality. Check orthostatics * ESRD-ongoing HD per nephrology * severe nausea vomiting secondary to tramadol adverse reaction. * recent right ankle injury-continue nonweightbearing/pain management. Will follow with orthopedic as outpatient. Tramadol discontinued * History of hypertension continue amlodipine/Coreg * Reactive disease continue albuterol * Full code * Prophylaxis heparin Plan * Continue telemetry monitoring * HD per nephrolog * Prior medical management on home meds * PT OT/nutrition support * Discharge planning * Outpatient orthopedic follow-up for right ankle injury Current Visit: Yes Medical - PN: Qual - VTE Deep Vein Thrombosis/Pulmonary Embolism Present on Admission: No
[2019-03-02] MEDS: diphenhydrAMINE 25 MG CAPSULE PO PRN ×3 (10:39→22:06)
[2019-03-02] MEDS: SUCROFERRIC OXYHYDROXIDE 500 MG PO SCH ×2 (12:46→17:31)
[2019-03-02] MEDS: ACETAMINOPHEN 325 MG TABLET PO PRN (14:22)
[2019-03-02] MEDS: CARVEDILOL 12.5 MG TABLET PO SCH (17:24)
--- NOTE | 2019-03-02 20:18 | Nephrology History & Physical ---
History of Present Illness Patient information: Note initiated : 03/02/19 at 8:15 pm Service Date, if different from initiated Date: [] Patient: Carlene Maddox a 48 y/o F admitted on 03/01/19 for shortness of breath. Chief Complaint: [ESRD on HD] HPI: Ms. Maddox is a 48 year old F with T2DM, HTN, ESRD on HD MWF at [facility] HD unit via [facility] AVF presented with worsening dizziness/ lightheaded. says her symptoms got progressively worse over the 2 weeks preceding her presentation. She fell on the day of presentation and says "My body got numb and weak and my mother tells me I lost consciousness". Reports "low blood pressures- systolic in the 90s- 100". Last dialyzed Tuesday Review of Systems Constitutional: as per HPI, weakness Cardiovascular: no dyspnea, no edema, no leg edema Respiratory: no dyspnea, no stridor Gastrointestinal: nausea Neurological: syncope, weakness Past History Past medical history: Medical History (Last Reviewed 10/23/18 @ 15:04 by María Elena Mercado RN) Acute whiplash injury (Acute) Bronchitis (Acute) Hypertensive urgency (Acute) Nausea & vomiting (Acute) Anemia (Acute) Leukocytosis (Acute) Hypothyroidism (Chronic) Vomiting (Chronic) Chest pain (Acute) Atypical chest pain (Acute) Obesity (Chronic) Secondary hyperparathyroidism of renal origin (Chronic) Proteinuria (Chronic) Vitamin D deficiency (Acute) Retinopathy, diabetic, background (Acute) Rash (Acute) Insomnia (Acute) Hypertension, essential, benign (Acute) Hyperlipidemia (Acute) Edema leg (Acute) 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) Diabetes mellitus type II, uncontrolled (Acute) CHF (congestive heart failure) (Acute) Chest pain (Acute) Past surgical history: Past Surgical History (Last Reviewed 10/23/18 @ 15:04 by María Elena Mercado RN) Hx of abdominal surgery (Acute) H/O angioplasty (Acute) Past family history: Past Surgical History (Last Reviewed 10/23/18 @ 15:04 by María Elena Mercado RN) Hx of abdominal surgery (Acute) H/O angioplasty (Acute) Past social history: Family History (Last Reviewed 10/23/18 @ 15:04 by María Elena Mercado RN) sister Chronic kidney disease, stage V Acute myocardial infarction Medications and Allergies Home Medications Medication Instructions Recorded Confirmed Type diphenhydrAMINE [Benadryl] 25 mg PO Q4-6HP PRN 05/19/18 03/01/19 History HYDROmorphone HCL [Dilaudid] 2 mg PO Q4-6HP PRN #15 tab 06/06/18 03/01/19 Rx cholecalciferol (vitamin D3) 1,000 1,000 unit PO QDAY #30 cap 06/19/18 03/01/19 Rx unit capsule Albuterol Sulfate [Proair Hfa] 1 - 2 puff IH Q4-6HP PRN #1 07/14/18 03/01/19 Rx hfa.aer.ad amlodipine 10 mg tablet 10 mg PO DAILY #30 tab 08/24/18 03/01/19 Rx carvedilol 25 mg tablet 25 mg PO BIDCC #60 tab 09/13/18 03/01/19 Rx Sucroferric Oxyhydroxide [Velphoro] 1,500 mg PO TIDCC 11/02/18 03/01/19 History Ondansetron [Zofran ODT] 4 mg SL Q4-6HP PRN #20 tab 02/27/19 03/01/19 Rx HYDROcodone/APAP 5/325MG [Revloc 1 tab PO Q6HP PRN #10 tab 03/03/19 Rx 5-325Mg] Allergies Allergy/AdvReac Type Severity Reaction Status Date / Time codeine AdvReac Mild Vomiting Verified 03/01/19 16:19 diazepam [From Valium] AdvReac Mild Other Verified 03/01/19 16:19 Exam - Vital Signs Vital signs: Temp Pulse Resp BP Pulse Ox 36.7 C 85 18 123/68 97 03/02/19 16:15 03/02/19 16:15 03/02/19 16:15 03/02/19 16:15 03/02/19 19:21 - General Appearance General appearance: well-developed, well-nourished EENT: ATNC Neck: no JVD Respiratory: clear Cardiology: no murmurs, no edema Gastrointestinal: normoactive bowel sounds, no tenderness Integumentary: warm and dry Neurologic: alert and oriented x3 Results - Lab Results 03/03/19 03:34 03/03/19 03:34 Most recent lab results Calcium 8.3 mg/dl (8.6-10.4) L 03/02/19 03:33 Phosphorus 7.6 mg/dL (2.7-4.5) H* 03/02/19 03:33 Magnesium 2.5 mg/dL (1.6-2.5) 03/02/19 03:33 Assessment and Plan (1) ESRD (end stage renal disease) on dialysis last HD Tuesday HD today then continue per home schedule MWF increase dry weight by 1 kg run today 3K bath, net even AV fistula good bruit/ thrill Status: Chronic Priority: Medium
[2019-03-02] MEDS ORDERED: SENNOSIDES/DOCUSATE SODIUM 1 TAB TABLET PO SCH (21:00)
[2019-03-02] MEDS: LORazepam 2 MG/ML VIAL IV PRN (22:06)
[2019-03-02] MEDS: HYDROmorphone 2 MG TABLET PO PRN (22:07)
[2019-03-03] MEDS: 0.9 % SODIUM CHLORIDE 10 ML SYRINGE IV SCH (05:26)
[2019-03-03 05:44] LABS: Hematocrit 43.1 % (36.0-48.0); Hemoglobin 13.9 g/dL (12.0-15.0); Mean Cell Volume 99.2 fL (80.0-100.0); Mean Corpuscular HGB Conc 32.1 g/dL (31.0-36.0); Mean Platelet Volume 7.8 fL (7.4-10.4); Platelet Count 188 K/mcL (140-440); RBC 4.35 M/mcL (4.00-5.20); Red Cell Distribution Width 15.3 % (11.5-14.5); WBC 4.3 K/mcL (4.5-11.0)
[2019-03-03 06:27] LABS: Basophils % (Manual) 1 % (0-2); Eosinophils % (Manual) 6 % (0-7); Lymphocytes % 18 % (15-49); Monocytes % (Manual) 8 % (1-12); Platelet Estimate NORMAL (NORMAL); Segmented Neutrophils % 67 % (38-78)
[2019-03-03 06:31] LABS: ALT/SGPT 9 U/l (0-40); AST/SGOT 14 U/l (0-37); Albumin 3.5 gm/dL (3.2-5.2); Albumin/Globulin Ratio 1.1 (1.0-2.3); Alkaline Phosphatase 82 U/L (39-117); Bilirubin,Direct < 0.2 mg/dL (0.0-0.3); Bilirubin,Total 0.7 mg/dL (0.0-1.0); Blood Urea Nitrogen 29 mg/dl (6-20); Calcium 7.8 mg/dl (8.6-10.4); Carbon Dioxide 29 mmol/L (22-30); Chloride 90 mmol/L (96-108); Globulin 3.3 gm/dL (2.2-3.7); Glomerular Filtration Rate 9; Glucose 123 mg/dL (70-105); Lactate Dehydrogenase 167 U/L (94-250); Phosphorous 5.7 mg/dL (2.7-4.5); Triglycerides 127 mg/dl (<150); Uric Acid 3.1 mg/dL (2.5-8.0)
[2019-03-03 06:37] LABS: RBC Morphology NORMAL (NORMAL)
[2019-03-03] MEDS: HEPARIN 5,000 UNIT/ML VIAL SQ SCH (08:06)
[2019-03-03] MEDS: THIAMINE 100 MG TABLET PO SCH (08:06)
[2019-03-03] MEDS: CYANOCOBALAMIN (VITAMIN B-12) 500 MCG TABLET PO SCH (08:06)
[2019-03-03] MEDS: CARVEDILOL 12.5 MG TABLET PO SCH (08:06)
[2019-03-03] MEDS: MULTIVIT,THER IRON,CA,FA & MIN 1 TABLET PO SCH (08:06)
[2019-03-03] MEDS: FOLIC ACID 1 MG TABLET PO SCH (08:06)
[2019-03-03] MEDS: DOCUSATE SODIUM 100 MG CAPSULE PO SCH (08:07)
[2019-03-03] MEDS: SUCROFERRIC OXYHYDROXIDE 500 MG PO SCH (08:07)
[2019-03-03] MEDS: ACETAMINOPHEN 325 MG TABLET PO PRN (08:41)
[2019-03-03] MEDS ORDERED: VITAMIN D3 1,000 UNIT TABLET PO SCH (09:00)
[2019-03-03] MEDS ORDERED: amLODIPine 10 MG TABLET PO SCH (09:00)
[2019-03-03] MEDS: HYDROmorphone 2 MG TABLET PO PRN (09:07)
--- NOTE | 2019-03-03 09:07 | Discharge Summary ---
Medical - DS: Prov Patient information: Note initiated : 03/03/19 at 9:05 am Service Date, if different from initiated Date: [] Patient: Carlene Maddox 48 y/o F admitted on 03/01/19 for shortness of breath. Chief Complaint: [] Date of admission: 03/01/19 21:56 Discharge date: 03/03/19 Primary care physician: Padmini Naik Consults: 03/01/19 Consult to Physician [CONS] Stat Comment: Consulting Provider: Demond Peters Reason For Exam: Physician to Consult 03/01/19 22:05 Consult to Physician [CONS] Routine Comment: Consulting Provider: nAtonio Lam Reason For Exam: Physician to Consult 03/02/19 08:52 Consult to Physician [CONS] Routine Comment: Consulting Provider: Veronique Sharif Reason For Exam: Physician to Consult Medical - DS: Meds - Discharge Medications Prescriptions: HYDROcodone/APAP 5/325MG [Matheny 5-325Mg] 1 tab PO Q6HP PRN #10 tab PRN Reason: Pain Prescription Printed Active and Home Medications: Home Medications diphenhydrAMINE [Benadryl] 25 mg PO Q4-6HP PRN 05/19/18 [History Confirmed 03/01/19 Last Taken Unknown] HYDROmorphone HCL [Dilaudid] 2 mg PO Q4-6HP PRN #15 tab 06/06/18 [Rx Confirmed 03/01/19 Last Taken Unknown] cholecalciferol (vitamin D3) 1,000 unit capsule 1,000 unit PO QDAY #30 cap 06/19/18 [Rx Confirmed 03/01/19 Last Taken Unknown] Albuterol Sulfate [Proair Hfa] 1 - 2 puff IH Q4-6HP PRN #1 hfa.aer.ad 07/14/18 [Rx Confirmed 03/01/19 Last Taken Unknown] amlodipine 10 mg tablet 10 mg PO DAILY #30 tab 08/24/18 [Rx Confirmed 03/01/19 Last Taken Unknown] carvedilol 25 mg tablet 25 mg PO BIDCC #60 tab 09/13/18 [Rx Confirmed 03/01/19 Last Taken Unknown] Sucroferric Oxyhydroxide [Velphoro] 1,500 mg PO TIDCC 11/02/18 [History Confirmed 03/01/19 Last Taken Unknown] Ondansetron [Zofran ODT] 4 mg SL Q4-6HP PRN #20 tab 02/27/19 [Rx Confirmed 03/01/19 Last Taken Unknown] HYDROcodone/APAP 5/325MG [Matheny 5-325Mg] 1 tab PO Q6HP PRN #10 tab 03/03/19 [Rx Last Taken Unknown] Medical - DS: Hosp Hospital Course: Discharge diagnosis * Acute onset dizziness with syncope-likely secondary to volume depletion. Clinically resolved and now at baseline. No overnight telemetry events. Negative neuroimaging except for remote infarct. Echocardiogram reviewed from September 2018 LVEF 48% with no significant valvular abnormality. The status resolved * ESRD-ongoing HD per nephrology. Continue his outpatient * severe nausea vomiting secondary to tramadol adverse reaction. Completely resolved. * recent right ankle injury-continue nonweightbearing/pain management. Will follow with orthopedic on Tuesday as outpatient. * Pain management at home dose hydromorphone/as needed Matheny * History of hypertension well controlled on amlodipine/Coreg * Reactive disease continue albuterol Hospital course Ms. Maddox is a 48 year old F with history of ESRD on hemodialysis who presents to the ER with roughly 48-hour onset of weakness dizziness along with associated nausea vomiting. Apparently symptoms started following a right ankle injury few days ago. Patient was started on a tramadol on Tuesday. However after a couple of doses patient started experiencing severe nausea vomiting that lasted through Tuesday and later this . Patient became dehydrated and started experiencing lightheadedness and dizziness. She experienced a syncopal episode and blacked out for a few seconds. She denies head injury/incontinence/seizure- like episodes. She endorses to loss of appetite. She currently remains on her right extremity boot with nonweightbearing status as per orthopedics. She is due to see orthopedic as an outpatient in the next few days. With worsening symptoms she presents to the ER. Initial work-up in the emergency department was essentially unremarkable. CT head revealed remote infarct but no acute process. However her blood pressures have been hovering around 100. Hospitalist service was consulted in light of multitude of both symptoms. At the time of evaluation patient is alert but distressed with the symptoms. She was able to endorse history as above. She denies diarrhea, headache, fever. She further denies rash/joint pain/weight gain or lower extremity swelling. 03/02-patient doing better since last night. Dizziness much improved. Hemodialysis today. Will likely discharge in 24 hours if no further. No overnight telemetry events except for brief episode of tachycardia which resolved. No fever or leukocytosis. Continue PT OT/dietary support. 03/03-patient underwent hemodialysis. Doing well. Systolic stable. No further episode of lightheadedness dizziness or shortness of breath. Feels at baseline. Discharging with advised to continue outpatient hemodialysis/follow-up with nephrology Discharge diagnosis: . - Time Spent with Patient Total time spent providing and/or coordinating discharge services: Greater than 30 minutes Medical - DS: Exam - Constitutional Vitals: Vital Signs Temp Pulse Pulse Resp BP BP Pulse Ox 03/03/19 08:00 97.7 F 16 126/73 93 03/03/19 03:48 97.9 F 73 14 100/65 97 03/03/19 00:00 98.3 F 78 16 108/71 98 03/02/19 20:00 98.2 F 79 16 97/53 98 03/02/19 19:21 97 03/02/19 18:15 74 16 03/02/19 16:15 98.0 F 85 85 18 123/68 96 03/02/19 16:04 98.4 F 92 H 127/72 03/02/19 15:30 91 H 03/02/19 15:28 98.3 F 96 H 110/60 03/02/19 15:01 98.4 F 86 114/62 03/02/19 14:30 98.3 F 87 112/61 03/02/19 13:55 98.1 F 87 109/61 03/02/19 13:25 98.3 F 87 109/61 03/02/19 12:56 98.1 F 92 H 114/60 03/02/19 12:30 98.3 F 90 12 111/62 98 03/02/19 12:25 98.3 F 83 111/62 03/02/19 11:58 87 100/63 03/02/19 11:29 98.3 F 85 111/62 03/02/19 10:00 16 116/68 99 Intake and Output 03/02/19 03/03/19 03/03/19 21:59 05:59 13:59 Intake Total 320 650 Output Total 1392 Balance -1072 650 Intake: IV 100 Oral 320 550 Output: Void Amount 0 Hemodialysis UF 1392 Other: Meal Dinner Percent of Meal Consumed 100% Feeding Ability Independent Stool Size Small Stool Color Brown Green Stool Consistency Formed # Bowel Movements 2 Weight 172 lb 8 oz Medical - DS: Data Labs on day of discharge: Labs from last 24 hours 03/03/19 03/03/19 03:34 03:34 WBC 4.3 L RBC 4.35 Hgb 13.9 Hct 43.1 MCV 99.2 MCH 31.9 MCHC 32.1 RDW 15.3 H Plt Count 188 MPV 7.8 Total Counted 100 Seg Neutrophils % 67 Band Neutrophils % Not Reportable Lymphocytes % 18 Monocytes % (Manual) 8 Eosinophils % (Manual) 6 Basophils % (Manual) 1 Platelet Estimate Normal RBC Morphology Normal Sodium 133 Potassium 4.3 Chloride 90 L Carbon Dioxide 29 Anion Gap 14.0 BUN 29 H Creatinine 5.1 H* GFR Calculation 9 Glucose 123 H Uric Acid 3.1 Calcium 7.8 L Phosphorus 5.7 H Magnesium 2.3 Total Bilirubin 0.7 Direct Bilirubin < 0.2 GGT 21 AST 14 ALT 9 Alkaline Phosphatase 82 Lactate Dehydrogenase 167 Total Protein 6.8 Albumin 3.5 Globulin 3.3 Albumin/Globulin Ratio 1.1 Triglycerides 127 Medical - DS: A/P - Patient/Caregiver Discharge Instructions Activity: increase activity as tolerated, other (Weightbearing status as per orthopedics) Diet: Renal/Consistent Carbs Additional Instructions: Follow-up with nephrology for HD Follow-up orthopedics on Tuesday for right lateral malleolus fracture evaluation. Continue boot as per orthopedic recommendations Follow-up PCP in 5 to 7 days Prescriptions: HYDROcodone/APAP 5/325MG [Matheny 5-325Mg] 1 tab PO Q6HP PRN #10 tab PRN Reason: Pain Prescription Printed - Problem Maintenance (1) Dizziness Status: Acute - Follow up Plan Follow up with: Veronique Sharif MD [Physician] - (Continue with your current dialysis schedule in clinic) Luis Ross DO [Physician] - 03/08/19 10:20 am Disposition: Home, Self-Care Care Plan Goals: This discharge packet is provided to you to help keep you informed about your care. We want to ensure you get everything you need when you go home. You will also be receiving a call from us in a few days to follow up with you and see how you are doing since your discharge. This gives us a chance to listen to any concerns you maybe experiencing since you were discharged or any additional needs you may have, as well as providing us feedback on your care experience. We strive to always provide excellent care and thank you for your feedback and for choosing [facility]. Prognosis: Undetermined Rehab Potential: Fair I certify that the patient requires SNF services: No Overall status at discharge: patient is progressing back to baseline Medical - DS: Qual - VTE Deep Vein Thrombosis/Pulmonary Embolism Present on Admission: No
[2019-03-03] MEDS ORDERED: FLU VACC QS2019-20(6MOS UP)/PF 60 MCG/0.5 ML SYRINGE IM ONE (10:00)
== END 2019-03-03 13:15 | disposition home or self-care (01) ==
LOC: ED 16:12 → ICU 16:12 → SUATTDRO 21:56
PROVIDERS: ADMIT Internal Medicine; ATTEND Internal Medicine Nephrology

== ENCOUNTER 2020-01-03 04:59 | Inpatient (IN) ==
[2019-12-28 17:53] LABS: Basophils # (Auto) 0.05 K/mcL (0.00-0.30); Basophils % (Auto) 0.7 % (0.0-2.0); Eosinophils # (Auto) 0.22 K/mcL (0.00-0.70); Granulocytes % (Auto) 73.5 % (38.0-78.0); Hematocrit 48.9 % (34.1-44.9); Hemoglobin 15.2 g/dL (11.2-15.7); Lymphocytes # (Auto) 1.16 K/mcL (1.50-4.80); Lymphocytes % (Auto) 15.8 % (15.5-49.0); Mean Cell Volume 98.8 fL (80.0-100.0); Mean Corpuscular HGB Conc 31.1 g/dL (31.0-36.0); Mean Platelet Volume 10.3 fL (7.4-10.4); Monocytes # (Auto) 0.51 K/mcL (0.10-0.90); Platelet Count 270 K/mcL (140-440); RBC 4.95 M/mcL (3.59-5.38); WBC 7.3 K/mcL (4.50-11.00)
[2019-12-28 18:09] LABS: ALT/SGPT 15 U/l (0-40); AST/SGOT 20 U/l (0-37); Albumin 4.3 gm/dL (3.2-5.2); Albumin/Globulin Ratio 1.1 (1.0-2.3); Alkaline Phosphatase 136 U/L (39-117); Bilirubin,Total 0.7 mg/dL (0.0-1.0); Blood Urea Nitrogen 17 mg/dl (6-20); Calcium 8.8 mg/dl (8.6-10.4); Carbon Dioxide 26 mmol/L (22-30); Glomerular Filtration Rate 12; Glucose 180 mg/dL (70-105)
[2019-12-28 18:14] LABS: Chloride 89 mmol/L (96-108)
[2019-12-28 18:25] LABS: Hemoglobin A1C 7.6 % HGB (4.0-6.0)
[2020-01-03] MEDS ORDERED: cefOXitin 2 GM VIAL IV SCH (06:00)
[2020-01-03] MEDS ORDERED: MAGNESIUM SULFATE 2 GM/50 ML BAG IV ONE ×2 (07:14→07:29)
[2020-01-03] MEDS ORDERED: ALBUMIN HUMAN 12.5 GM/50 ML BAG IV ONE (07:25)
[2020-01-03] MEDS ORDERED: LIDOCAINE HCL/PF 100 MG/5 ML SYRINGE IV ONE (07:29)
[2020-01-03] MEDS ORDERED: HYDROmorphone 0.5 MG/0.5 ML SYRINGE IV ONE (07:29)
[2020-01-03] MEDS ORDERED: ROCURONIUM 10 MG/ML ML IV ONE (07:29)
[2020-01-03] MEDS ORDERED: PROPOFOL 200 MG/20 ML VIAL IV ONE (07:29)
[2020-01-03] MEDS ORDERED: DEXAMETHASONE 10 MG/ML VIAL IV ONE (07:29)
[2020-01-03] MEDS ORDERED: MIDAZOLAM 2 MG/2 ML VIAL IV ONE (07:29)
[2020-01-03] MEDS ORDERED: TRANEXAMIC ACID 1,000 MG/10 ML VIAL IV ONE (07:29)
[2020-01-03] MEDS ORDERED: KETAMINE 100 MG/ML ML IV ONE (07:29)
[2020-01-03] MEDS ORDERED: SUGAMMADEX SODIUM 200 MG/2 ML VIAL IV ONE (07:29)
[2020-01-03] MEDS ORDERED: fentaNYL 100 MCG/2 ML VIAL IV ONE (07:29)
[2020-01-03] MEDS ORDERED: BUPIVACAINE W/EPI 0.25% 50 ML VIAL IJ ONE (09:00)
[2020-01-03] MEDS ORDERED: GELATIN SPONGE,ABSORBABLE 1 EACH SPONGE TOPICAL ONE (09:00)
[2020-01-03] MEDS ORDERED: MAGNESIUM HYDROXIDE 30 ML ORAL.SUSP PO PRN (09:01)
[2020-01-03] MEDS ORDERED: ONDANSETRON 4 MG/2 ML VIAL IV PRN ×2 (09:01→09:42)
[2020-01-03] MEDS ORDERED: BISACODYL 10 MG SUPP.RECT PR PRN (09:01)
[2020-01-03] MEDS ORDERED: ALBUTEROL SULFATE 200 PUFF INHALER INH PRN (09:08)
[2020-01-03] MEDS ORDERED: HYDROmorphone PCA 30 MG/30 ML PCA.VIAL IV PRN ×2 (09:28→09:49)
--- NOTE | 2020-01-03 09:29 | Brief Operative Note ---
Brief Operative Note Date of procedure: 01/03/20 Pre-op diagnosis: retroperitoneal mass Post-op diagnosis: same Procedure: partieal nephrectomy Grafts/Implants: No Anesthesia: GLMA Findings: see note Complications: none Surgeon: Jaylan Martell Estimated blood loss (cc): 100 Specimens Removed/Pathology: other (retroparitaneal mass) Condition: stable Disposition: PACU
[2020-01-03] MEDS ORDERED: ACETAMINOPHEN 1,000 MG/100 ML BOTTLE IV ONE (09:42)
[2020-01-03] MEDS ORDERED: FLUMAZENIL 0.1 MG/ML ML IV PRN (09:42)
[2020-01-03] MEDS ORDERED: METHOCARBAMOL 1,000 MG/10 ML VIAL IV PRN (09:42)
[2020-01-03] MEDS ORDERED: IPRATROPIUM/ALBUTEROL 3 ML AMPUL.NEB NEB PRN (09:42)
[2020-01-03] MEDS ORDERED: PROMETHAZINE 25 MG/ML VIAL IV PRN (09:42)
[2020-01-03] MEDS ORDERED: fentaNYL 100 MCG/2 ML VIAL IV PRN (09:42)
[2020-01-03] MEDS ORDERED: BENZOCAINE/MENTHOL 1 LOZENGE PO PRN (09:42)
[2020-01-03] MEDS ORDERED: LACTATED RINGERS 250 ML IV PRN (09:42)
[2020-01-03] MEDS ORDERED: NALOXONE HCL 0.4 MG/ML VIAL IV PRN (09:42)
[2020-01-03] MEDS ORDERED: METOPROLOL TARTRATE 5 MG/5 ML VIAL IV PRN (09:42)
[2020-01-03] MEDS ORDERED: LABETALOL 5 MG/ML ML IV PRN (09:42)
[2020-01-03] MEDS ORDERED: LACTATED RINGERS 1,000 ML IV SCH (09:45)
[2020-01-03] MEDS ORDERED: ONDANSETRON 4 MG/2 ML VIAL ONE (09:48)
--- NOTE | 2020-01-03 09:48 | Operative Note ---
DATE OF OPERATION: 01/03/2020 PREOPERATIVE DIAGNOSIS: Right retroperitoneal mass. POSTOPERATIVE DIAGNOSIS: Right retroperitoneal mass. PROCEDURE: Partial nephrectomy. SURGEON: Jaylan Martell M.D. MARGIN ANALYST: Honorio Lynch M.D. INDICATION: The patient is a 49-year-old lady who did have a mass in her right retroperitoneum. This seems to be connected to the kidney, and she presents now for removal. PROCEDURE: The patient was identified and consent was signed. She was given general anesthesia, placed in supine position and prepped and draped in a standard fashion. A right Pritchett incision was made, and this was carried down to the retroperitoneum with the electrocautery. The muscle was split, and we were able to enter the retroperitoneal space. We did inadvertently open the peritoneal cavity, and this was closed. At no time did we see any bowel contents. We were able to identify with ultrasound the small kidney. This was atrophic and there were no masses seen. We were then able to find the mass. This was more medial than we suspected. This was circumscribed, and we were able to follow this up to the kidney. It did appear that there was a small bridge of tissue connecting the mass to the kidney, and this was able to be removed. There was a small segment of the kidney removed also. We inspected for bleeding. There was none. Surgicel was then placed to close off the defect and bleeding was controlled. The ureter appeared to be medial and was not involved with the surgery. We then irrigated the wound, closed the muscle in layers with a #1 PDS, closed the subcutaneous tissue with 0 Vicryl, and then closed the skin with janie. Sterile dressings were applied. She was awoken and taken to the recovery room in stable condition. She tolerated the procedure well. Needle and sponge count were correct. Estimated blood loss was 100 mL. DEBRA:angela Job ID: [id number] Doc ID: [id number] Jaylan Martell MD
[2020-01-03] MEDS: DEXTROSE 5%-NS 1,000 ML IV SCH ×2 (11:10→23:27)
[2020-01-03] MEDS: oxyCODONE/APAP 5/325MG TABLET PO PRN (12:12)
[2020-01-03] MEDS: SEVELAMER 800 MG TABLET PO SCH ×2 (12:13→17:14)
[2020-01-03] MEDS: 0.9 % SODIUM CHLORIDE 10 ML SYRINGE IV SCH ×2 (12:44→22:34)
[2020-01-03] MEDS: SUCROFERRIC OXYHYDROXIDE 1000 MG PO SCH ×3 (12:44→23:27)
[2020-01-03] MEDS: cefOXitin 2 GM VIAL IV SCH ×2 (15:49→23:35)
[2020-01-03] MEDS ORDERED: ONDANSETRON 4 MG/2 ML VIAL IV ONE (19:49)
[2020-01-04] MEDS: ONDANSETRON 4 MG/2 ML VIAL IV PRN ×2 (02:33→09:00)
[2020-01-04] MEDS: 0.9 % SODIUM CHLORIDE 10 ML SYRINGE IV SCH ×3 (04:29→20:42)
[2020-01-04] MEDS: diphenhydrAMINE 25 MG CAPSULE PO PRN ×2 (05:10→22:05)
[2020-01-04 06:54] LABS: Hematocrit 40.9 % (34.1-44.9); Hemoglobin 12.4 g/dL (11.2-15.7); Mean Cell Volume 101.7 fL (80.0-100.0); Mean Corpuscular HGB Conc 30.3 g/dL (31.0-36.0); Mean Platelet Volume 10.3 fL (7.4-10.4); Platelet Count 224 K/mcL (140-440); RBC 4.02 M/mcL (3.59-5.38); Red Cell Distribution Width 15.3 % (11.5-14.5); WBC 9.7 K/mcL (4.50-11.00)
[2020-01-04] MEDS ORDERED: MAGNESIUM HYDROXIDE 30 ML ORAL.SUSP PO PRN (07:10)
[2020-01-04] MEDS ORDERED: FLEETS ADULT ENEMA PR PRN (07:10)
[2020-01-04] MEDS ORDERED: BISACODYL 10 MG SUPP.RECT PR PRN (07:10)
--- NOTE | 2020-01-04 07:16 | General Surgery Progress Note ---
SUBJECTIVE Subjective Patient information: Note initiated : 01/04/20 at 7:14 am Service Date, if different from initiated Date: [] Patient: Carlene Maddox 49 y/o F admitted on 01/03/20 for Right Partial Nephrectomy. Postop day #1 Chief Complaint: Pain Patient does complain of pain and nausea which are improved with medication. The Dilaudid does seem to help. On exam, her wound is dry and the dressing is intact. She has not passed any flatus. She will go to dialysis today as scheduled. I would continue the pain medication and have her ambulate. We will start a bowel program. Constitutional Vitals: Vital Signs Temp Pulse Resp BP Pulse Ox 97.7 F 73 18 97/58 94 01/04/20 03:03 01/04/20 03:03 01/04/20 06:00 01/04/20 03:03 01/04/20 03:03 Period Temp Pulse Resp BP Sys/Shin Pulse Ox Last 24 Hr 97.3 F-98.8 F 73-119 12-23 84-164/47-87 81-100 Intake and Output 01/03/20 01/04/20 01/04/20 21:59 05:59 13:59 Intake Total 200 1381 Output Total 50 Balance 200 1331 Intake & Output: Intake & Output 01/03/20 01/04/20 01/04/20 21:59 05:59 13:59 Intake Total 200 1381 Output Total 50 Balance 200 1331 Intake: IV 921 Dextrose 5%-Ns IV Solution 1, 921 000 ml @ 75 mls/hr IV .[id number] [facility] Rx#:[id number] Oral 200 460 Output: Emesis 50 Other: Urine Appearance Clear Uretheral (Goetz) Clear Urine Color Light Hayde Uretheral (Goetz) Light Hayde Urine Odor Strong Uretheral (Goetz) Strong A/P Time Spent With Patient Time: Total time spent is greater than 50% in coordination of care (as documented) at patient's floor/unit and/or counseling patient:
[2020-01-04 07:29] LABS: Calcium 8.1 mg/dl (8.6-10.4); Glucose 176 mg/dL (70-105)
[2020-01-04 08:12] LABS: Blood Urea Nitrogen 45 mg/dl (6-20); Carbon Dioxide 19 mmol/L (22-30); Chloride 92 mmol/L (96-108); Glomerular Filtration Rate 5
--- NOTE | 2020-01-04 08:45 | Nephrology Progress Note ---
SUBJECTIVE Subjective Patient information: Note initiated : 01/04/20 at 8:36 am Service Date, if different from initiated Date: [] Patient: Carlene Maddox a 49 y/o F admitted on 01/03/20 for Right Partial Nephrectomy. Chief Complaint: [Right RP mass] I was asked to provide renal replacement therapy for this 49-year-old patient of Dr. Sharif who was admitted yesterday for an elective right partial nephrectomy as treatment for an acquired renal cyst/mass involving the right kidney. Preprocedure biopsy was nondiagnostic and she underwent an elective partial nephrectomy by Dr. Martell as outlined below: Date of procedure: 01/03/20 Pre-op diagnosis: retroperitoneal mass Post-op diagnosis: same Procedure: partieal nephrectomy Grafts/Implants: No Previously she had a right RP/renal bleed and was sent to [facility] for evaluation in 05/2018: "She was seen in the emergency room earlier today, during that time she underwent ultrasound of the abdomen as well as CT of the abdomen with contrast. Ultrasound of the abdomen was unremarkable except for some sludge in the gallbladder. CT abdomen and pelvis however showed a 12 cm right sided retroperitoneal hemorrhage. The patient had a CT scan done approximately a month ago which showed a renal cyst in the same region, I think at this time the patient had bleeding into the renal cyst." This was treated conservatively with expected matural history of shrinking by 10/2018 in follow-up. Besides a fall that was thought to trigger the RP hemorrhage, she is heparinized 3 x per week with HD. Definitive treatment and concern for a mitotic process was right partial NPx yesterday. She dialyzes Tuesday and Tuesday at the [facility] dialysis unit Dry weight is 93.5 kg QB is 400 QD is 800 Uses a 2K/2.5 calcium/35 bicarb bath 4-hour treatment Receives qMWF Sensipar 30 mg Blood pressure is well controlled on dialysis with usual end of dialysis mild hypotension. She says nausea is a problem with her treatments Phosphate binders include Renvela 1600 mg p.o. 3 times daily with meals and Velfloro thousand milligrams 3 times daily with meals and nightly Laboratory Tests 12/28/19 01/04/20 01/04/20 15:09 04:58 04:58 WBC 9.7 Hgb 15.2 12.4 Hct 48.9 H 40.9 MCV 101.7 H Plt Count 224 Sodium 132 L Potassium 4.6 Chloride 92 L Carbon Dioxide 19 L BUN 45 H Creatinine 8.4 H* Glucose 176 H Calcium 8.1 L Plan is to perform heparin free dialysis today. Plan discussed with patient and dialysis staff Constitutional Vitals: Vital Signs Temp Pulse Resp BP Pulse Ox 36.5 C 73 18 97/58 94 01/04/20 03:03 01/04/20 03:03 01/04/20 06:00 01/04/20 03:03 01/04/20 03:03 Period Temp Pulse Resp BP Sys/Shin Pulse Ox Last 24 Hr 36.3 C-37.1 C 73-119 12-23 84-164/47-87 81-100 Intake and Output 01/03/20 01/04/20 01/04/20 21:59 05:59 13:59 Intake Total 200 1381 Output Total 50 Balance 200 1331 Intake & Output: Intake & Output 01/03/20 01/04/20 01/04/20 21:59 05:59 13:59 Intake Total 200 1381 Output Total 50 Balance 200 1331 Intake: IV 921 Dextrose 5%-Ns IV Solution 1, 921 000 ml @ 75 mls/hr IV .[id number] [facility] Rx#:[id number] Oral 200 460 Output: Emesis 50 Other: Urine Appearance Clear Uretheral (Goetz) Clear Urine Color Light Hayde Uretheral (Goetz) Light Hayde Urine Odor Strong Uretheral (Goetz) Strong General appearance: average body habitus and mild distress Exam: Postop pain with CHOIR ACCOMPANIST being used by patient Head Head exam: Present atraumatic and normocephalic Eye Eye exam: Present EOMI, normal appearance and PERRL; Absent scleral icterus Pupils: Present PERRL ENT ENT exam: Present mucous membranes dry Neck Neck exam: Present full ROM and normal inspection; Absent meningismus Respiratory Respiratory exam: Present normal respiratory exam and CTAB Cardiovascular Cardiovascular exam: Present normal rate and rhythm, +S1 and +S2; Absent gallop, JVD and rubs GI/Abdominal GI/Abdominal exam: Present soft and diminished bowel sounds Rectal Rectal exam: Present deferred Extremities Exam Extremities exam: Present normal inspection; Absent calf tenderness Neurological Exam Neurological exam: Present alert, CN II-XII intact and oriented X3 Psychiatric Psychiatric exam: Present anxious Additional comments: C/O pain which she does not deal well with Skin Skin exam: Present intact Additional findings Additional findings: Right upper arm AVF. A/P Assessment and plan (1) Right renal mass: Status: Chronic Comment: Suspected to be hemorrhagic cyst post RP injury post fall in . Cannot eliminate mitotic process. Elective partial R NPx 01/03/2020 (2) ESRD (end stage renal disease) on dialysis: Status: Chronic Comment: HD qMWF Narrative A/P Narrative: 1. Adding heparin predialysis using outpatient orders 2. On discharge would probably continue heparin free dialysis for a week or so 3. Serial H&H on dialysis weekly to make sure there is no further bleeding. Time Spent With Patient Time: Total time spent is greater than 50% in coordination of care (as documented) at patient's floor/unit and/or counseling patient:
[2020-01-04] MEDS: CINACALCET 30 MG TABLET PO SCH (09:02)
[2020-01-04] MEDS: SEVELAMER 800 MG TABLET PO SCH ×3 (09:02→17:13)
[2020-01-04] MEDS: DOCUSATE SODIUM 100 MG CAPSULE PO SCH ×2 (09:02→20:41)
[2020-01-04] MEDS: SUCROFERRIC OXYHYDROXIDE 1000 MG PO SCH ×4 (09:07→20:42)
[2020-01-04] MEDS: DEXTROSE 5%-NS 1,000 ML IV SCH ×2 (12:32→14:10)
[2020-01-04] MEDS: cefOXitin 2 GM VIAL IV SCH (14:05)
--- NOTE | 2020-01-04 17:41 | Nephrology Procedure Note ---
Procedure Note Patient information: Note initiated : 01/04/20 at 5:36 pm Service Date, if different from initiated Date: [] Patient: Carlene Maddox a 49 y/o F admitted on 01/03/20 for Right Partial Nephrectomy. Chief Complaint: [Hospitalized for partialright NPX] Selected Entries 01/04/20 08:00 01/04/20 10:30 01/04/20 11:04 Blood Pressure 126/76 129/78 Blood Pressure [Left Arm] 104/60 01/04/20 11:31 01/04/20 11:59 01/04/20 12:00 Blood Pressure 109/64 108/62 Blood Pressure [Left Arm] 116/62 01/04/20 12:27 01/04/20 12:57 01/04/20 13:10 Blood Pressure 113/67 119/71 119/71 Blood Pressure [Left Arm] 01/04/20 16:00 Blood Pressure Blood Pressure [Left Arm] 126/64 Seen on HD. Planned on 4 hour acute HD but clotted EC circuit after 2.75 hr of treatment. Blood returned and no plans to dialyze again till Tuesday when we will use low dose heparin. Normally 1500 bolus and 800 per hour so will use ~ 50% of her usual heparin amount.. 2 liter u/f. Next HD 01/07/2020.
[2020-01-05] MEDS: DEXTROSE 5%-NS 1,000 ML IV SCH (03:56)
[2020-01-05] MEDS: 0.9 % SODIUM CHLORIDE 10 ML SYRINGE IV SCH ×4 (06:16→21:40)
[2020-01-05] MEDS: SEVELAMER 800 MG TABLET PO SCH ×3 (07:58→17:28)
[2020-01-05] MEDS: CINACALCET 30 MG TABLET PO SCH (07:58)
[2020-01-05] MEDS: SUCROFERRIC OXYHYDROXIDE 1000 MG PO SCH ×4 (07:59→21:15)
[2020-01-05] MEDS: DOCUSATE SODIUM 100 MG CAPSULE PO SCH ×2 (07:59→21:15)
[2020-01-05] MEDS ORDERED: DEXTROSE 5%-NS 1,000 ML IV SCH (10:21)
--- NOTE | 2020-01-05 10:31 | General Surgery Progress Note ---
SUBJECTIVE Subjective Patient information: Note initiated : 01/05/20 at 10:29 am Service Date, if different from initiated Date: [] Patient: Carlene Maddox 49 y/o F admitted on 01/03/20 for Right Partial Nephrectomy. Chief Complaint: Hospital day #2, status post partial nephrectomy Patient continues to complain about pain. She states that she was up once or twice yesterday but has not been ambulating. The nurses state that she is somnolent and they are concerned about oversedation. Therefore I will stop her Dilaudid. Her blood pressures slightly elevated and she is on Coreg and amlodipine at home. We will start her on this. Her wound is clean and dry and no evidence of infection. She still has not passed any flatus. Plan is to ambulate today and see how she does. Will advance her diet when she does have flatus. Constitutional Vitals: Vital Signs Temp Pulse Resp BP Pulse Ox 99.1 F H 109 H 18 162/75 95 01/05/20 06:57 01/05/20 06:57 01/05/20 06:57 01/05/20 06:57 01/05/20 06:57 Period Temp Pulse Resp BP Sys/Shin Pulse Ox Last 24 Hr 96.2 F-99.1 F 78-113 16-22 108-162/55-78 94-100 Intake and Output 01/04/20 01/05/20 01/05/20 21:59 05:59 13:59 Intake Total 620 1000 140 Balance 620 1000 140 Weight 210 lb 11.2 oz Intake & Output: Intake & Output 01/04/20 01/05/20 01/05/20 21:59 05:59 13:59 Intake Total 620 1000 140 Balance 620 1000 140 Weight 210 lb 11.2 oz Intake: IV 1000 Dextrose 5%-Ns IV Solution 1, 1000 000 ml @ 75 mls/hr IV .[id number] [facility] Rx#:[id number] Oral 620 140 Other: Meal Dinner Breakfast Percent of Meal Consumed 25% 25% Feeding Ability Independent Independent A/P Time Spent With Patient Time: Total time spent is greater than 50% in coordination of care (as documented) at patient's floor/unit and/or counseling patient:
[2020-01-05] MEDS: CARVEDILOL 12.5 MG TABLET PO SCH ×2 (11:29→17:27)
--- NOTE | 2020-01-05 13:50 | Nephrology Progress Note ---
SUBJECTIVE Subjective Patient information: Note initiated : 01/05/20 at 1:47 pm Service Date, if different from initiated Date: [] Patient: Carlene Maddox a 49 y/o F admitted on 01/03/20 for Right Partial Nephrectomy. Chief Complaint: [right renal mass] POD #2 right partial nephrhrectomy as described in Dr Martell's note Expected post op pain in a patient with self reported low pain tolerance IT COMMUNICATIONS SPECIALIST infiltrated and left arm swelling PRN percocet but no scheduled Rx ordered. OK for NSAIDs and Acetaminophen as she has reached ESRD. Constitutional Vitals: Vital Signs Temp Pulse Resp BP Pulse Ox 36.9 C 111 H 20 148/68 93 01/05/20 12:00 01/05/20 12:00 01/05/20 12:00 01/05/20 12:00 01/05/20 12:00 Period Temp Pulse Resp BP Sys/Shin Pulse Ox Last 24 Hr 36.4 C-37.3 C 78-113 16-22 121-162/55-75 93-100 Intake and Output 01/04/20 01/05/20 01/05/20 21:59 05:59 13:59 Intake Total 620 1000 380 Balance 620 1000 380 Weight 95.572 kg Intake & Output: Intake & Output 01/04/20 01/05/20 01/05/20 21:59 05:59 13:59 Intake Total 620 1000 380 Balance 620 1000 380 Weight 95.572 kg Intake: IV 1000 Dextrose 5%-Ns IV Solution 1, 1000 000 ml @ 75 mls/hr IV .[id number] [facility] Rx#:[id number] Oral 620 380 Other: Meal Dinner Lunch Percent of Meal Consumed 25% 100% Feeding Ability Independent Assist with Tray Set Up Heent: PERRL, EOMI, 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 Cannot el iminate mitotic process. 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 Switch to po pain Rx, running and prn 2. Ambulate 3. Advance diet as possible 4. HD on Tuesday 5. Blood loss anemia and anemia of cKD. restart ARTEMIO Time Spent With Patient Time: Total time spent is greater than 50% in coordination of care (as documented) at patient's floor/unit and/or counseling patient:
[2020-01-05] MEDS: ACETAMINOPHEN 500 MG TABLET PO SCH ×2 (15:03→21:14)
[2020-01-05] MEDS: NAPROXEN 250 MG TABLET PO SCH ×2 (15:04→21:14)
[2020-01-05] MEDS ORDERED: CARVEDILOL 12.5 MG TABLET PO SCH (17:30)
[2020-01-05] MEDS: oxyCODONE/APAP 5/325MG TABLET PO PRN (18:37)
[2020-01-05] MEDS: diphenhydrAMINE 25 MG CAPSULE PO PRN (21:14)
[2020-01-06] MEDS: oxyCODONE/APAP 5/325MG TABLET PO PRN ×3 (00:45→19:46)
[2020-01-06] MEDS: ACETAMINOPHEN 500 MG TABLET PO SCH ×3 (05:51→22:17)
[2020-01-06] MEDS: NAPROXEN 250 MG TABLET PO SCH ×3 (05:51→22:17)
[2020-01-06] MEDS: 0.9 % SODIUM CHLORIDE 10 ML SYRINGE IV SCH ×4 (05:51→22:18)
[2020-01-06 06:20] LABS: Hematocrit 33.2 % (34.1-44.9); Hemoglobin 10.4 g/dL (11.2-15.7); Mean Cell Volume 99.1 fL (80.0-100.0); Mean Corpuscular HGB Conc 31.3 g/dL (31.0-36.0); Mean Platelet Volume 10.4 fL (7.4-10.4); Platelet Count 158 K/mcL (140-440); RBC 3.35 M/mcL (3.59-5.38); Red Cell Distribution Width 14.6 % (11.5-14.5); WBC 6.2 K/mcL (4.50-11.00)
--- NOTE | 2020-01-06 07:00 | Nephrology Progress Note ---
SUBJECTIVE Subjective Patient information: Note initiated : 01/06/20 at 6:59 am Service Date, if different from initiated Date: [] Patient: Carlene Maddox a 49 y/o F admitted on 01/03/20 for Right Partial Nephrectomy. Chief Complaint: [Right kidney mass for removal] interval Hx: POD #3 Seen on rounds C/O: Some pain but improved Able to get out of bed w/o assistance Selected Entries 01/06/20 04:00 Temperature 36.8 C Pulse Rate [Monitor Reading] 76 Blood Pressure [Left Arm] 139/73 Pulse Oximetry (%) 95 Laboratory Tests 01/06/20 04:35 WBC 6.2 Hgb 10.4 L Hct 33.2 L Plt Count 158 Constitutional Vitals: Vital Signs Temp Pulse Resp BP Pulse Ox 36.8 C 76 16 139/73 95 01/06/20 04:00 01/06/20 04:00 01/06/20 04:00 01/06/20 04:00 01/06/20 04:00 Period Temp Pulse Resp BP Sys/Shin Pulse Ox Last 24 Hr 36.6 C-37.1 C 76-111 16-20 138-148/68-73 93-96 Intake and Output 01/05/20 01/06/20 01/06/20 21:59 05:59 13:59 Intake Total 240 400 Balance 240 400 Weight 95.028 kg Intake & Output: Intake & Output 01/05/20 01/06/20 01/06/20 21:59 05:59 13:59 Intake Total 240 400 Balance 240 400 Weight 95.028 kg Intake: Oral 240 400 Other: Meal Dinner Percent of Meal Consumed 100% Feeding Ability Independent General appearance: average body habitus and cooperative Head Head exam: Present atraumatic, normal inspection and normocephalic Eye Eye exam: Present EOMI, normal appearance and PERRL Pupils: Present PERRL Additional comments: Legally chrystal ENT ENT exam: Present mucous membranes dry Neck Neck exam: Present full ROM and normal inspection Respiratory Respiratory exam: Present normal respiratory exam and CTAB Cardiovascular Cardiovascular exam: Present normal rate and rhythm, RRR, +S1 and +S2; Absent JVD and rubs GI/Abdominal GI/Abdominal exam: Present normal bowel sounds and tenderness (mild) Extremities Exam Extremities exam: Present pedal edema (trace); Absent calf tenderness Neurological Exam Neurological exam: Present alert, CN II-XII intact and oriented X3 Additional comments: Improved mentation back to baseline A/P Assessment and plan (1) ESRD (end stage renal disease) on dialysis: Status: Chronic Comment: HD qMWF Narrative A/P Narrative: 1. Plan dialysis tomorrow after before or discharge Time Spent With Patient Time: Total time spent is greater than 50% in coordination of care (as documented) at patient's floor/unit and/or counseling patient:
[2020-01-06 07:08] LABS: Albumin 2.5 gm/dL (3.2-5.2); Blood Urea Nitrogen 38 mg/dl (6-20); Calcium 8.1 mg/dl (8.6-10.4); Carbon Dioxide 24 mmol/L (22-30); Chloride 88 mmol/L (96-108); Glomerular Filtration Rate 5; Glucose 148 mg/dL (70-105); Phosphorous 6.2 mg/dL (2.7-4.5)
--- NOTE | 2020-01-06 09:07 | General Surgery Progress Note ---
SUBJECTIVE Subjective Patient information: Note initiated : 01/06/20 at 9:06 am Service Date, if different from initiated Date: [] Patient: Carlene Maddox 49 y/o F admitted on 01/03/20 for Right Partial Nephrectomy. Chief Complaint: Postop day #3 Patient was ambulating and did have flatus. Her wound is clean and dry and her pain is better controlled. I will advance her to a renal diet today and anticipate discharge tomorrow after dialysis. Constitutional Vitals: Vital Signs Temp Pulse Resp BP Pulse Ox 98.3 F 76 16 139/73 93 01/06/20 04:00 01/06/20 04:00 01/06/20 08:00 01/06/20 04:00 01/06/20 08:00 Period Temp Pulse Resp BP Sys/Shin Pulse Ox Last 24 Hr 97.9 F-98.7 F 76-111 16-20 138-148/68-73 93-96 Intake and Output 01/05/20 01/06/20 01/06/20 21:59 05:59 13:59 Intake Total 240 400 100 Balance 240 400 100 Weight 209 lb 8 oz Intake & Output: Intake & Output 01/05/20 01/06/20 01/06/20 21:59 05:59 13:59 Intake Total 240 400 100 Balance 240 400 100 Weight 209 lb 8 oz Intake: Oral 240 400 100 Other: Meal Dinner Percent of Meal Consumed 100% Feeding Ability Independent A/P Time Spent With Patient Time: Total time spent is greater than 50% in coordination of care (as documented) at patient's floor/unit and/or counseling patient:
[2020-01-06] MEDS: CINACALCET 30 MG TABLET PO SCH (09:49)
[2020-01-06] MEDS: amLODIPine 10 MG TABLET PO SCH (09:49)
[2020-01-06] MEDS: CARVEDILOL 12.5 MG TABLET PO SCH ×2 (09:49→16:54)
[2020-01-06] MEDS: DOCUSATE SODIUM 100 MG CAPSULE PO SCH ×2 (09:49→22:17)
[2020-01-06] MEDS: SEVELAMER 800 MG TABLET PO SCH ×3 (09:54→17:08)
[2020-01-06] MEDS: SUCROFERRIC OXYHYDROXIDE 1000 MG PO SCH ×4 (09:55→22:18)
[2020-01-06] MEDS: ONDANSETRON 4 MG ODT TABLET SL PRN (19:46)
[2020-01-07] MEDS: NAPROXEN 250 MG TABLET PO SCH (05:17)
[2020-01-07] MEDS: ACETAMINOPHEN 500 MG TABLET PO SCH (05:17)
[2020-01-07] MEDS: 0.9 % SODIUM CHLORIDE 10 ML SYRINGE IV SCH ×2 (05:18)
--- NOTE | 2020-01-07 07:16 | General Surgery Progress Note ---
SUBJECTIVE Subjective Patient information: Note initiated : 01/07/20 at 7:15 am Service Date, if different from initiated Date: [] Patient: Carlene Maddox 49 y/o F admitted on 01/03/20 for Right Partial Nephrectomy. Chief Complaint: Postop day #4 Patient is doing better. Pain is controlled with oral medications. Her wound is clean and dry and is ready for discharge to home. She will have dialysis today and then can go home afterwards. She will follow-up in [address] Lynch for staple removal. Pathology is still pending. Constitutional Vitals: Vital Signs Temp Pulse Resp BP Pulse Ox 97.5 F 83 16 122/78 96 01/07/20 04:00 01/07/20 04:00 01/07/20 04:00 01/07/20 04:00 01/07/20 04:00 Period Temp Pulse Resp BP Sys/Shin Pulse Ox Last 24 Hr 97.1 F-98.1 F 81-96 16-18 96-140/51-81 91-98 Intake and Output 01/06/20 01/07/20 01/07/20 21:59 05:59 13:59 Intake Total 240 Balance 240 Weight 210 lb Intake & Output: Intake & Output 01/06/20 01/07/20 01/07/20 21:59 05:59 13:59 Intake Total 240 Balance 240 Weight 210 lb Intake: Oral 240 Other: Meal Dinner Percent of Meal Consumed 100% Feeding Ability Assist with Tray Set Up A/P Time Spent With Patient Time: Total time spent is greater than 50% in coordination of care (as documented) at patient's floor/unit and/or counseling patient:
[2020-01-07] MEDS: ONDANSETRON 4 MG ODT TABLET SL PRN (07:31)
[2020-01-07] MEDS: CINACALCET 30 MG TABLET PO SCH (07:32)
--- NOTE | 2020-01-07 08:16 | Discharge Summary ---
DATE OF ADMISSION: 01/03/2020 DATE OF DISCHARGE: ADMITTING DIAGNOSIS: Retroperitoneal mass. DISCHARGE DIAGNOSIS: Retroperitoneal mass. PROCEDURE: Right partial nephrectomy. SURGEON: Jaylan Martell M.D. INDICATIONS: The patient is a 49-year-old lady who has what was thought to be a hematoma in the right flank. This has been there 2 years and has not resolved and is giving her pain, and she presents now for removal. For the rest of history and physical, please see dictation. HOSPITAL COURSE: The patient was admitted afterwards and did well. She cleared her ileus about 3 days and then was started on regular diet. Her wound was clean and dry. She did undergo dialysis the day after surgery and on the day of discharge. DISCHARGE MEDICATIONS: Preop medications plus Percocet 10 mg #1 to 2 tabs p.o. q. 4-6. p.r.n. for pain. PLAN: She will follow up with Dr. Lynch in 2 weeks for staple removal. Pathology is pending. [id number] Job ID: [id number] Doc ID: [id number] Jyalan Martell MD
[2020-01-07] MEDS: DOCUSATE SODIUM 100 MG CAPSULE PO SCH (10:19)
[2020-01-07] MEDS: CARVEDILOL 12.5 MG TABLET PO SCH (10:19)
[2020-01-07] MEDS: amLODIPine 10 MG TABLET PO SCH (10:19)
[2020-01-07] MEDS: SEVELAMER 800 MG TABLET PO SCH (10:19)
[2020-01-07] MEDS: SUCROFERRIC OXYHYDROXIDE 1000 MG PO SCH (10:20)
--- NOTE | 2020-01-07 13:55 | Surgical Pathology Report ---
HISTOLOGY SPECIMEN MICROSCOPIC DIAGNOSIS SOFT TISSUE, RIGHT RETROPERITONEAL MASS, EXCISION: -- ORGANIZING HEMATOMA, 7 cm IN GREATEST DIMENSION; SEE COMMENT. -- NO MALIGNANCY IDENTIFIED. (DMT:christian) COMMENT: The patient's recent biopsy of this mass ([id number]; 11/30/2019) with minute fragments of degenerated red blood cells and fibrin is noted. Multiple sections of the current excision specimen are examined and consist entirely of old hemorrhage with peripherally located chronic inflammation, histiocytes and iron deposits. The findings are compatible with a collection of old hemorrhage/hematoma. No associated malignancy is seen. CLINICAL HISTORY ESRD; right retroperitoneal mass. GROSS DESCRIPTION Received in formalin, labeled right retroperitoneal mass, is a 365 gram, 11.1 x 8.4 x 6.3 cm adhikari-yellow fibrofatty soft tissue fragment. The fragment is roughly spherical. In addition to the main fragment is a second fragment of adhikari-yellow adipose tissue which is 10.5 x 6 x 2.4 cm. The external surface/soft tissue margins of the larger fragment are inked black. The specimen is bisected to reveal a 7 x 6.5 x 6 cm maroon-red well circumscribed mass. The periphery of the mass consists of a adhikari-white smooth-lined cyst-like capsule that is less than 0.1 mm thick and the central mass is maroon-red, possibly coagulated hemorrhage. No associated adhikari-white firm tissue is seen. The tissue surrounding the mass consists of adhikari-yellow adipose tissue only. No associated kidney or adrenal gland are identified. The mass is 0.2 cm from the nearest inked margin. The second fragment is uninked, serially sectioned and consists of adhikari-yellow adipose tissue only. No mass-like lesions are identified. Washer Hand sections are submitted as follows: A1-A8 - mass lesion with associated capsule and adjacent adipose tissue and margin; A9 - healthcare representative sections of second fragment of adipose tissue. (DMT:christian) Electronically Signed by: Kev Hinkle M.D.
== END 2020-01-07 10:00 | disposition home or self-care (01) | DRG 981 ==
LOC: ICU 04:59